=== PATIENT | male | born 1960 | race Two or more races ===

== ENCOUNTER → 2024-11-05 | Outpatient (CLI) | payer MEDICARE, MEDICAID, SELFPAY ==
[2024-11-05 10:43] LABS: Basophils % (Auto) 1 % (0-2.5); Eosinophils # (Auto) 0.2 Thou/mm3 (0.0-0.5); Eosinophils % (Auto) 2 % (0-10); Hematocrit 26.7 % (41.0-53.0); Immature Granulocytes % (Auto) 1 % (0-0); Immature Granulocytes Auto 0.04 Thou/mm3 (0.00-0.00); Immature Reticulocyte Fraction 27.2 % (2.3-13.4); Lymphocytes # (Auto) 0.7 Thou/mm3 (1.0-4.8); Lymphocytes % (Auto) 9 % (10-50); Mean Corpuscular HGB Conc 32.2 g/dl (31.0-37.0); Mean Corpuscular Hemoglobin 33.2 pg (25.0-35.0); Mean Corpuscular Volume 103 fL (80-100); Monocytes # (Auto) 0.7 Thou/mm3 (0.0-0.8); Monocytes % (Auto) 9 % (0-12); Neutrophils # (Auto) 5.9 Thou/mm3 (1.8-7.7); Neutrophils % (Auto) 78 % (37-80); Nucleated Red Blood Cell % 0 /100 WBC (0); Platelet Count 242 Thou/mm3 (140-440); RDW Standard Deviation 63.7 fL (35.1-43.9); Red Blood Count 2.59 Miln/mm3 (4.50-5.90); Reticulocyte % (Auto) 3.5 % (0.5-1.5); Reticulocyte Absolute Auto 91.7 Biln/L (25.0-75.0); Reticulocyte Hgb Content 30.9 pg (28.0-35.0); White Blood Count 7.5 Thou/mm3 (3.8-10.6)
[2024-11-05 10:49] LABS: Hemoglobin 8.6 g/dL (13.5-16.0)
[2024-11-05 11:03] LABS: Alanine Aminotransferase 14 U/L (10-49); Albumin, Serum 4.3 gm/dL (3.4-4.8); Albumin/Globulin Ratio 1.5 (1.2-2.2); Alkaline Phosphatase 91 U/L (46-116); Anion Gap 9 (7-16); Aspartate Amino Transferase 14 U/L (0-34); BUN/Creatinine Ratio 7 Ratio (12-20); Bilirubin,Total 0.4 mg/dL (0.3-1.2); Blood Urea Nitrogen 46 mg/dL (9-23); Calcium 9.2 mg/dL (8.3-10.6); Calcium (Corrected) 9.2 mg/dL (8.5-10.1); Carbon Dioxide 34.1 mMol/L (20.0-31.0); Chloride 92 mMol/L (98-107); Creatinine (Component) 6.5 mg/dL (0.6-1.3); Globulin 2.9 gm/dL (2.3-3.5); Glucose 137 mg/dL (74-106); Osmolality,Calculated 284 (275-295); Potassium 5.2 mMol/L (3.4-5.1); Sodium 135 mMol/L (136-145); Total Protein 7.2 gm/dL (5.7-8.2); eGFR 9 See Note
[2024-11-05 21:31] LABS: Folate 14.94 ng/mL (>5.38); Vitamin B12 634 pg/mL (211-911)
[2024-11-05 22:48] LABS: Ferritin 1584 ng/mL (10.5-307.3); Total Iron Binding Capacity 232 mcg/dL (250-425)
[2024-11-05 22:56] LABS: Iron 45 mcg/dL (65-175); Percent Iron Saturation 19 % (20-55); Unsaturated Iron Binding 187 (225-295)
[2024-11-13 15:36] LABS: Kappa Light Chain, Free 354.3 mg/L (3.3-19.4); Lambda Light Chain, Free 199.1 mg/L (5.7-26.3)
[2024-11-16 06:41] LABS: Erythropoietin (EPO)* 99.2 mIU/mL (2.6-18.5); Haptoglobin* 96 mg/dL (43-212); Kappa/Lambda, Free Ratio 1.78 (0.26-1.65); Testosterone,Total* 390 ng/dL (250-1100)
== END | disposition home or self-care (01) ==
PROVIDERS: PCP Internal Medicine; Referring Provider Internal Medicine Hematology & Oncology; Visit Provider Internal Medicine Hematology & Oncology
DX: D64.89 Other specified anemias (principal)
CPT/HCPCS: 36415; 80053; 82232; 82607; 82668; 82728; 82746; 83010; 83521; 83540; 83550; 83605; 84403; 85025; 85046; 86334; 86880

== ENCOUNTER 2024-11-19 08:16 | Outpatient (RCR) | payer MEDICARE, MEDICAID, SELFPAY ==
--- NOTE | 2024-11-03 13:57 | CTCCONSULT_ITS ---
Patient: LISA ESQUIVEL : 1960 MR#: [id number] Page 2 of 2 CONSULTATION NOTE DATE OF CONSULTATION: 11/03/2024 NAME: LISA ESQUIVEL ACCOUNT: [id number] : 1960 AGE: 63 REFERRING PHYSICIAN: Patria Belle MD PRIMARY PHYSICIAN: Patria Belle MD HISTORY OF PRESENT ILLNESS: 63-year-old male with end-stage renal disease on hemodialysis. Patient is referred by his nephrologi st for evaluation of anemia. Patient says he does not want to follow-up in hematology oncology. He says that he has been anemic for his whole life. He has been treated for it and does not want much w orkup done. He does not have any signs of symptoms from low blood count. He says he always felt the same and there is no change. OTHER MEDICAL HISTORY/CONDITIONS: ANEMIA EROSIVE ESOPHAGITIS, H.PYLORI POSITIVE 02/21/24 HYPERTENSION DIABETES MELLITUS DYSLIPIDEMIA END STAGE RENAL DISEASE ON DIALYSIS, ON TRANSPLANT LIST PERIPHERAL VASCULAR DISEASE SLEEP APNEA USING CPAP CHF LEFT EAR IMPLANTABLE DEVICE 8 YEARS AGO ARTERIOVENOUS FISTULA LEFT 12 YEARS AGO EGD/COLONOSCOPY 2023 FAMILY HISTORY: Father:?DENIES Mother:?DENIES Sibling:?DENIES Children:?DENIES Cancer?History:?DENIES?,?HX?ANEMIA Patient?denies?family?cancer?history. SOCIAL HISTORY: Occupational?History:?DISABLED Marital?Status:? Tobacco?Use:?QUIT?SMOKING?30?YEARS?AGO ETOH?Use:?DENIES Drug?Note:?DENIES Social?History?Note:?LIVES?WITH? MEDICATIONS: 1. calcium acetate - 667 mg 2 tab Daily 2. carvedilol - 25 mg 1 tab Daily 3. dilTIAZem HCL - 120 mg 1 tab Daily 4. Eliquis - 2.5 mg 1 tab Daily 5. Entresto - 24-26 mg 1 tab Daily 6. glipiZIDE - 5 mg 1 tab Daily 7. loratadine - 10 mg 1 Capsule Daily 8. Renavit Multivitamin - 0.8 mg 1 tab Daily 9. Sod Polysulthionate-Folic Acid - 400 mg- 500 mcg 1 Capsule Daily Medications Last Reconciled by Fide Acevedo MD on 11/03/2024 ALLERGIES: No Known Allergies REVIEW OF SYSTEMS: A complete 14-point review of systems was performed and is negative except as noted in interval histo ry. PHYSICAL EXAMINATION: VITAL SIGNS: Temperature?98.5, B/P?177/96, Height?66?inches, Oxygen?Saturation?98% Weight?182?lbs PAIN: 0 - No pain ECOG Performance Status: 0 - Asymptomatic and fully active GENERAL APPEARANCE: Appears well, in no apparent distress, appropriately interactive. HEENT: Normocephalic, no temporal wasting, normal conjunctiva, no scleral icterus, normal hearing, li ps without lesions, neck normal range of motion. CARDIOVASCULAR: Not assessed. PULMONARY: Normal respiratory effort, no respiratory distress or use of accessory muscles, speaking i n full sentences, no tachypnea. EXTREMITIES: No pedal edema or cyanosis. SKIN: Normal skin appearance. NEUROLOGIC: Alert and oriented x4. PSHYCHIATRIC: Appropriate affect, mood normal, behavior normal, intact thought and speech. LABORATORY DATA: I have personally reviewed and interpreted each of Mr. Esquivel?s relevant lab tests, abnormal findings are below: Date ASSESSMENT/PLAN: Anemia Primary care patient has been on Epogen as well as iron for his anemia Patient still anemic I will do workup for multiple myeloma as well as hemolysis to see if there are other causes for anemi a Will do iron studies and erythropoietin level I reviewed patient's EGD and colonoscopy which showed inflammation in the esophagus stomach No bleeding site was noted but patient may be oozing blood and becoming iron deficient Will follow-up on the labs May need bone marrow biopsy for confirmatory diagnosis if labs do not reveal any cause ORDERS: Ferritin iron studies B12 folic acid serum immune O pheresis SPEP free and light chain ratio beta-2 m icroglobulin ordered RETURN TO CLINIC: 2 weeks BILLING AND COMPLIANCE: I reviewed external records from providers outside my specialty as summarized above. I spent a total of 50 minutes on this patient?s care on the day of their visit excluding time spent related to any bi lled procedures. This time includes time spent with the patient as well as time spent documenting in the medical record, reviewing patients records and tests, obtaining history, placing orders, communi cating with other healthcare professionals, counseling the patient, family or caregiver, and/or care coordination for the diagnoses above. Electronically Signed by: Adebayo Lopez MD T: 1:55 PM CC: Patria?Yoshi,? PCP: Patria Belle Referring: Patria eBlle This document was completed utilizing speech recognition software. Grammatical errors, random word in sertions, pronoun errors, and incomplete sentences are an occasional consequence of this system due t o software limitations, ambient noise, and hardware issues. Any formal questions or concerns about th e content, text or information contained within the body of this dictation should be directly address ed to the provider for clarification.
== END 2024-11-20 23:59 | disposition home or self-care (01) ==
LOC: SCTC 08:16
PROVIDERS: PCP Internal Medicine; Referring Provider Specialist; Visit Provider Nurse Practitioner Family
DX: D64.9 Anemia, unspecified (principal)
CPT/HCPCS: 99212; 99213; G0463

== ENCOUNTER → 2024-11-30 | Outpatient (CLI) | payer MEDICARE, MEDICAID, SELFPAY ==
[2024-11-30 14:38] LABS: Basophils % (Auto) 0 % (0-2.5); Eosinophils # (Auto) 0.1 Thou/mm3 (0.0-0.5); Eosinophils % (Auto) 2 % (0-10); Hematocrit 30.6 % (41.0-53.0); Immature Granulocytes % (Auto) 0 % (0-0); Immature Granulocytes Auto 0.03 Thou/mm3 (0.00-0.00); Lymphocytes # (Auto) 0.7 Thou/mm3 (1.0-4.8); Lymphocytes % (Auto) 8 % (10-50); Mean Corpuscular HGB Conc 32.7 g/dl (31.0-37.0); Mean Corpuscular Hemoglobin 33.4 pg (25.0-35.0); Mean Corpuscular Volume 102 fL (80-100); Monocytes # (Auto) 0.8 Thou/mm3 (0.0-0.8); Monocytes % (Auto) 9 % (0-12); Neutrophils # (Auto) 7.3 Thou/mm3 (1.8-7.7); Neutrophils % (Auto) 81 % (37-80); Nucleated Red Blood Cell % 0 /100 WBC (0); Platelet Count 168 Thou/mm3 (140-440); RDW Standard Deviation 63.7 fL (35.1-43.9); Red Blood Count 2.99 Miln/mm3 (4.50-5.90); White Blood Count 9.1 Thou/mm3 (3.8-10.6)
[2024-11-30 14:56] LABS: Folate > 24.00 ng/mL (>5.38); Vitamin B12 666 pg/mL (211-911)
[2024-11-30 15:00] LABS: Alanine Aminotransferase 17 U/L (10-49); Albumin, Serum 4.3 gm/dL (3.4-4.8); Albumin/Globulin Ratio 1.3 (1.2-2.2); Alkaline Phosphatase 100 U/L (46-116); Anion Gap 9 (7-16); Aspartate Amino Transferase 21 U/L (0-34); BUN/Creatinine Ratio 5 Ratio (12-20); Bilirubin,Total 0.4 mg/dL (0.3-1.2); Blood Urea Nitrogen 29 mg/dL (9-23); Calcium 9.9 mg/dL (8.3-10.6); Calcium (Corrected) 9.9 mg/dL (8.5-10.1); Carbon Dioxide 33.8 mMol/L (20.0-31.0); Chloride 97 mMol/L (98-107); Creatinine (Component) 5.6 mg/dL (0.6-1.3); Globulin 3.2 gm/dL (2.3-3.5); Glucose 148 mg/dL (74-106); Osmolality,Calculated 288 (275-295); Potassium 4.8 mMol/L (3.4-5.1); Sodium 140 mMol/L (136-145); Total Protein 7.5 gm/dL (5.7-8.2); eGFR 11 See Note
[2024-11-30 15:14] LABS: Ferritin 1153 ng/mL (10.5-307.3); Iron 37 mcg/dL (65-175); Percent Iron Saturation 15 % (20-55); Total Iron Binding Capacity 234 mcg/dL (250-425); Unsaturated Iron Binding 197 (225-295)
== END | disposition home or self-care (01) ==
PROVIDERS: PCP Internal Medicine; Referring Provider Nurse Practitioner Family; Visit Provider Nurse Practitioner Family
DX: D64.9 Anemia, unspecified (principal)
CPT/HCPCS: 36415; 80053; 82607; 82728; 82746; 83540; 83550; 85025

== ENCOUNTER 2024-12-08 06:34 | Day surgery (SDC) | payer MEDICARE, MEDICAID, SELFPAY ==
[2024-12-08] VITALS (13 sets, daily range): BP systolic 133–148; BP diastolic 87–111; PULSE 76–117; RESP 15–20; TEMP 36.5–36.7; O2SAT 93–100; BMI 28.5
[2024-12-08] MEDS: SODIUM CHLORIDE 0.9% 1000 ML 500 ML 20 ML IV (07:45)
[2024-12-08] MEDS: fentaNYL CIT INJ 50 mCg/ML AMP 2ML 75 MCG IVP (08:21)
[2024-12-08] MEDS: MIDAZOLAM INJ 1 MG/ML VIAL 2 ML 2 MG IV (08:21)
--- NOTE | 2024-12-08 08:36 | EKG_ITS ---
[facility] Test Date: 2024-12-08 Pat Name: LISA ESQUIVELDepartment: Room: - Gender: Male Brick Tester: : 1960 Requested By: Ines Galvan Order Number: [id number] Reading MD: Ines Galvan Measurements Intervals [place] Rate: 77 P: 45 AK: 206 QRS: -1 QRSD: 108 T: 82 QT: 394 QTc: 446 Interpretive Statements SINUS RHYTHM NONSPECIFIC ST & T-WAVE ABNORMALITY Compared to ECG 11/30/2022 04:08:40 T-wave abnormality now present Intraventricular conduction delay no longer present /store/S0/[id number]/ecg/[id number].pdf
--- NOTE | 2024-12-08 09:55 | PC.NURSE ---
8184 patient is awake, alert, breathing unlabored, s/p cardioversion by Dr. Gustafson, report received from Yayo COY, patient to recover in cardiac cath lab manager until 1030. family at bedside, patient eating breakfast
--- NOTE | 2024-12-08 10:22 | ESOP_ITS ---
RE: LISA ESQUIVEL : 1960 DATE OF OPERATION: 12/08/2024 DATE OF PROCEDURE: 12/08/2024 PROCEDURES PERFORMED: 1. Synchronized cardioversion. 2. Conscious sedation 30 minutes duration. DIAGNOSIS: Atrial fibrillation, symptomatic. HISTORY AND INDICATIONS: The patient is a 63-year-old male with history of hypertension, CKD, and hemodialysis with symptomatic atrial fibrillation. He was given anticoagulation with Eliquis for more than 3 weeks. The patient recommended to have synchronized cardioversion. DESCRIPTION OF PROCEDURE: The patient was brought to cardiac catheterization laboratory. Informed consent was obtained. He was given conscious sedation with 2 mg of Versed and 50 mcg of fentanyl. Synchronized cardioversion successfully performed using 100 units of energy, converted to sinus rhythm. EKG showed 100% sinus rhythm within normal limits. SUMMARY OF FINDINGS: Successful synchronized cardioversion from atrial fibrillation to normal sinus rhythm. COMPLICATIONS: None. DT: 09:34:41 TT: 10:02:00 Ref: [id number] - TID: [id number]
--- NOTE | 2024-12-08 10:34 | PC.NURSE ---
patient is awake, alert, breathing unlabored, able to tolerate breakfast with no nausea or vomiting, meets discharge criteria, discharge instructions given to patient and family member via missile tracking technician, waiting for ride to get here to picker and sorter load and unload patient.ride coming from [place].
--- NOTE | 2024-12-08 15:04 | PC.NURSE ---
1042 patient awake alert, breathing unlabored, meets discharge criteria, patient discharged home in wheelchair with all belongings accompanied by family member
== END 2024-12-08 10:42 | disposition home or self-care (01) ==
LOC: SCCL 08:05 → S2EX 12-11 09:59 → SCCL 12-11 09:59
PROVIDERS: PCP Internal Medicine; Referring Provider Internal Medicine Cardiovascular Disease; Visit Provider Internal Medicine Cardiovascular Disease
PROC: 5A2204Z Restoration of Cardiac Rhythm, Single (ICD-10-PCS; CPT 92960; principal; 2024-12-08 07:30)
DX: I48.91 Unspecified atrial fibrillation (principal); I12.9 Hypertensive chronic kidney disease with stage 1 through stage 4 chronic kidney disease, or unspecified chronic kidney disease; N18.9 Chronic kidney disease, unspecified; Z01.810 Encounter for preprocedural cardiovascular examination
CPT/HCPCS: 92960; 93005; J2250; J3010; J7030

== ENCOUNTER 2024-12-15 07:27 | Outpatient (CLI) | payer MEDICARE, MEDICAID, SELFPAY ==
[2024-12-14 11:31] LABS: Basophils % (Auto) 1 % (0-2.5); Eosinophils # (Auto) 0.2 Thou/mm3 (0.0-0.5); Eosinophils % (Auto) 3 % (0-10); Hematocrit 30.6 % (41.0-53.0); Hemoglobin 10.3 g/dL (13.5-16.0); Immature Granulocytes % (Auto) 0 % (0-0); Immature Granulocytes Auto 0.02 Thou/mm3 (0.00-0.00); Lymphocytes # (Auto) 0.7 Thou/mm3 (1.0-4.8); Lymphocytes % (Auto) 11 % (10-50); Mean Corpuscular HGB Conc 33.7 g/dl (31.0-37.0); Mean Corpuscular Hemoglobin 33.6 pg (25.0-35.0); Mean Corpuscular Volume 100 fL (80-100); Monocytes # (Auto) 0.6 Thou/mm3 (0.0-0.8); Monocytes % (Auto) 10 % (0-12); Neutrophils # (Auto) 4.6 Thou/mm3 (1.8-7.7); Neutrophils % (Auto) 76 % (37-80); Nucleated Red Blood Cell % 0 /100 WBC (0); Platelet Count 168 Thou/mm3 (140-440); RDW Standard Deviation 59.3 fL (35.1-43.9); Red Blood Count 3.07 Miln/mm3 (4.50-5.90); White Blood Count 6.1 Thou/mm3 (3.8-10.6)
[2024-12-14 11:40] LABS: INR 1.1 (0.9-1.3); Partial Thromboplastin Time 36.1 Seconds (22.0-36.0); Prothrombin Time 11.9 Seconds (9.0-12.2)
[2024-12-14 11:42] LABS: Blood Urea Nitrogen 32 mg/dL (9-23); Creatinine (Component) 4.8 mg/dL (0.6-1.3); eGFR 13 See Note
[2024-12-15] VITALS (11 sets, daily range): BP systolic 144–174; BP diastolic 84–110; PULSE 68–80; RESP 10–17; TEMP 36.2–36.6; O2SAT 97–100
--- NOTE | 2024-12-15 07:42 | XR_ITS ---
Exam: CT-guided left iliac bone biopsy and bone marrow aspiration DATE 12/15/2024, 9:15 AM INDICATION: Hemopoietic abnormality CTDI: 30.2 DLP: 385 Procedure: After discussing the risk and benefits informed consent was obtained. The patient was brought to the CT scanner and placed in the prone decubitus position. Preliminary noncontrast enhanced CT demonstrated normal bony anatomy of the pelvis. The posterior left iliac bone was targeted for biopsy. . The overlying skin was cleaned and draped in normal sterile surgical fashion. 10 cc's of 1% lidocaine local anesthesia. Conscious sedation was begun with direct continuous nursing supervision. Using CT guidance a 10-gauge needle biopsy system was sequentially advanced into the targeted area. A single core bone biopsy sample was obtained followed by 10 cc's of bone marrow aspirate. Pathology deemed the samples adequate the time of the procedure. The needle was withdrawn. Hemostasis was achieved. The access site was covered with sterile dressing. Postbiopsy CT was performed which showed no evidence of bony injury or other complication. Patient tolerated procedure well and was transferred to the holding area for post procedural observation. Impression: Successful posterior left iliac bone biopsy and bone marrow aspiration as above.
[2024-12-15 09:04] LABS: Flow Cytometry* See Sep Rpt
[2024-12-15] MEDS: SODIUM CHLORIDE 0.9% 500 ML 500 ML 20 ML IV (09:05)
[2024-12-15] MEDS: fentaNYL CIT INJ 50 mCg/ML AMP 2ML 100 MCG IVP (09:32)
[2024-12-15] MEDS: MIDAZOLAM INJ 1 MG/ML VIAL 2 ML IV (09:32)
[2024-12-15] MEDS: LIDOCAINE INJ PF 1% 30 ML VIAL 15 ML INFL (09:39)
--- NOTE | 2024-12-15 09:58 | PC.NURSE ---
0958 patient is awake, alert, breathing unlabored, s/p bone marrow biopsy and aspiration, band aid and tegaderm to lower back, no active bleeding noted. Report given to Lydia COY, patient to recover for 1hr.
== END 2024-12-15 10:43 | disposition home or self-care (01) ==
PROVIDERS: Radiology Diagnostic Radiology; PCP Internal Medicine; Referring Provider Internal Medicine Hematology & Oncology; Visit Provider Internal Medicine Hematology & Oncology
DX: D64.9 Anemia, unspecified (principal); Z01.812 Encounter for preprocedural laboratory examination
CPT/HCPCS: 38221; 36415; 77012; 82565; 84520; 85025; 85610; 85730; 99152; J2250; J3010; J3490; J7040

== ENCOUNTER → 2024-12-31 | Outpatient (CLI) | payer MEDICARE, MEDICAID, SELFPAY ==
[2024-12-29 09:53] LABS: Basophils # (Auto) 0.1 Thou/mm3 (0.0-0.2); Basophils % (Auto) 1 % (0-2.5); Eosinophils # (Auto) 0.4 Thou/mm3 (0.0-0.5); Eosinophils % (Auto) 4 % (0-10); Hematocrit 32.7 % (41.0-53.0); Hemoglobin 10.4 g/dL (13.5-16.0); Immature Granulocytes % (Auto) 0 % (0-0); Immature Granulocytes Auto 0.03 Thou/mm3 (0.00-0.00); Lymphocytes # (Auto) 0.6 Thou/mm3 (1.0-4.8); Lymphocytes % (Auto) 7 % (10-50); Mean Corpuscular HGB Conc 31.8 g/dl (31.0-37.0); Mean Corpuscular Hemoglobin 32.4 pg (25.0-35.0); Mean Corpuscular Volume 102 fL (80-100); Monocytes # (Auto) 0.8 Thou/mm3 (0.0-0.8); Monocytes % (Auto) 10 % (0-12); Neutrophils # (Auto) 6.7 Thou/mm3 (1.8-7.7); Neutrophils % (Auto) 78 % (37-80); Nucleated Red Blood Cell % 0 /100 WBC (0); Platelet Count 138 Thou/mm3 (140-440); RDW Standard Deviation 58.6 fL (35.1-43.9); Red Blood Count 3.21 Miln/mm3 (4.50-5.90); White Blood Count 8.6 Thou/mm3 (3.8-10.6)
[2024-12-29 10:15] LABS: Alanine Aminotransferase 20 U/L (10-49); Albumin, Serum 4.3 gm/dL (3.4-4.8); Albumin/Globulin Ratio 1.5 (1.2-2.2); Alkaline Phosphatase 108 U/L (46-116); Anion Gap 9 (7-16); Aspartate Amino Transferase < 10 U/L (0-34); BUN/Creatinine Ratio 7 Ratio (12-20); Bilirubin,Total 0.4 mg/dL (0.3-1.2); Blood Urea Nitrogen 53 mg/dL (9-23); Calcium 9.4 mg/dL (8.3-10.6); Calcium (Corrected) 9.4 mg/dL (8.5-10.1); Carbon Dioxide 31.8 mMol/L (20.0-31.0); Chloride 94 mMol/L (98-107); Creatinine (Component) 7.8 mg/dL (0.6-1.3); Globulin 2.8 gm/dL (2.3-3.5); Glucose 166 mg/dL (74-106); Osmolality,Calculated 288 (275-295); Potassium 4.7 mMol/L (3.4-5.1); Sodium 135 mMol/L (136-145); Total Protein 7.1 gm/dL (5.7-8.2); eGFR 7 See Note
--- NOTE | 2024-12-31 15:30 | XR_ITS ---
Examination: CT chest with intravenous contrast CT abdomen with intravenous contrast CT pelvis with intravenous contrast 2-D coronal and sagittal reconstructions Time of exam: December 31, [address] abdomen pelvis February 04, 2020 Indications: Anemia unspecified diagnosis 2 months ago, renal failure CTDI: vol (mGy) : 7.09 DLP: (mGycm): 593 Technique: Multiple axial images of the chest, abdomen and pelvis with intravenous contrast, 3.0 mm slice thickness. Images obtained post intravenous injection Isovue 370 60 cc. 2-D sagittal and coronal reconstructions. Low dose protocols were performed. One or more of the following dose reduction techniques were used; automated exposure control, adjustment of the mA and/or KV according to patient size, use of iterative reconstruction technique. Findings: No thoracic aortic aneurysm dilatation Pulmonary artery segments are not enlarged No pulmonary artery filling defects 6 bilateral noncalcified pulmonary nodules, the largest in the right lower lobe 11 mm No paratracheal tracheobronchial or bronchopulmonary adenopathy. Small right minimal left pleural fluid No visualized liver or splenic lesion, liver 19 cm, spleen 13 cm Absent gallbladder No pancreatic or adrenal mass Moderate renal parenchymal scar formation Bilateral subcentimeter probable renal cysts However, more solid lesion 17 mm with mild enhancement lateral margin right kidney image 222, not seen on the prior study Aorta normal size Normal appendix No abdominal or pelvic lymphadenopathy The colon shows diffuse wall thickening and mild hyperemia especially sigmoid colon Urinary bladder is contracted with wall thickening poorly visualized Transverse prostate dimension 6 cm Severe osteopenia Impression: 6 bilateral noncalcified pulmonary nodules, the largest in the right lower lobe 11 mm, with this study as baseline recommend 6 month follow-up CT chest without contrast Hepatosplenomegaly Recommend MRI abdomen kidneys follow-up to exclude 17 mm solid lesion lateral margin right kidney
== END | disposition home or self-care (01) ==
PROVIDERS: Referring Provider Nurse Practitioner Family; Visit Provider Nurse Practitioner Family
DX: R91.8 Other nonspecific abnormal finding of lung field (principal); R16.2 Hepatomegaly with splenomegaly, not elsewhere classified; D64.9 Anemia, unspecified
CPT/HCPCS: 36415; 71260; 74177; 80053; 85025; A4649; Q9967

== ENCOUNTER 2025-01-03 18:54 | Inpatient (IN) | payer MEDICARE, MEDICAID, SELFPAY ==
[2025-01-03 19:11] VITALS: BP 156/84; PULSE 85; RESP 25; O2SAT 100
[2025-01-03 19:21] VITALS: BP 156/84; RESP 30; TEMP 38.7; O2SAT 100
--- NOTE | 2025-01-03 19:34 | EDNOTE_ITS ---
Upper Respiratory Inf. RME/HPI General Chief Complaint: Flu Like Symptoms Stated Complaint: SHORTNESS OF BREATH WITH COUGH AND BODY ACHES Time Seen by Provider: 01/03/25 19:14 Arrival date/time: 01/03/25 18:54 This is a 64-year-old male comes into the emergency room with complaints of cough, fever, and nausea that started yesterday. Patient is a chronic dialysis patient. Patient received dialysis Saturday and Saturday. Patient also has history of high blood pressure, atrial fibrillation patient has had a synchronized cardioversion in the past., and hyperlipidemia. Related Data Home Medications ?Medication ?Instructions ?Recorded ?Confirmed alprazolam 0.5 mg tablet 0.5 mg PO QDAY PRN anxiety 0 02/20/24 01/04/25 carvedilol 25 mg tablet 25 mg PO Q12H 02/20/2401/04 cyclobenzaprine 10 mg tablet 10 mg PO HS PRN muscle sp asm 02/20/24 01/04/25 diltiazem HCl 120 mg capsule,24 120 mg PO QDAY 4 01/04/25 hr,extended release glipizide 5 mg tablet 5 mg PO BID 02/20/24 5 loratadine 10 mg tablet 10 mg PO QDAY 02/20/2401/04 sacubitril 24 mg-valsartan 26 mg 1 tab PO BID 02/20/24 01/04/25 tablet (Entresto) sevelamer carbonate 2.4 gram oral 2.4 g PO TID 4 01/04/25 powder packet sodium polystyrene sulfonate 15 g PO QDAY 02/20/24 apixaban 2.5 mg tablet (Eliquis) 2.5 mg PO Q12H 01/04/25 calcium acetate(phosphat bind) 667 1,334 mg PO TIDWMEA L 12/08/24 01/04/25 mg capsule amiodarone 200 mg tablet 200 mg PO QDAY 12/14/2412/19 vitamin B complex-vitamin C-folic 1 tab PO QDAY 01/04/25 acid 0.8 mg tablet (Dialyvite 800) vitamin B complex-vitamin C-folic 1 tab PO QDAY 01/04/25 acid 0.8 mg tablet (Nephro-Jj) Previous Rx's ?Medication ?Instructions ?Recorded amoxicillin 500 mg-potassium 1 tab PO QDAY 7 days #7 t abs 01/07/25 clavulanate 125 mg tablet (Augmentin) Allergies Allergy/AdvReac Type Severity Reaction Status Date / Time No Known Allergies Allergy Verified 01/03/25 18:59 Review of Systems Review of Systems Systems Reviewed: All systems reviewed, normal except as documented Past Medical History Past Medical History CARDIAC: Positive Cardiac Disorders; Negative Congestive Heart Failure RESPIRATORY: Negative Chronic Obstructive Pulmonary Disease (COPD) GENITOURINARY: Positive Renal Disease ENDOCRINE: Positive Diabetes Mellitus Type 2; Negative Diabetes Mellitus Type 1 OTHER HISTORY: Positive Blood Transfusions Social History SMOKING STATUS: Never smoker ED Exam General General appearance: Present alert and other (MOPDERATE DISTRESS, TACHYPNEIC ON ARRIVAL ) Head Head exam: Present atraumatic Eye Eye exam: Present normal appearance, PERRL and EOMI ENT ENT exam: Present normal exam, normal oropharynx and mucous membranes moist Neck Neck exam: Present normal inspection, full ROM and trachea midline Chest Chest inspection: Present normal inspection and symmetric chest wall rise Respiratory Respiratory exam: Present normal lung sounds bilaterally Cardiovascular Cardiovascular exam: Present regular rate, normal rhythm and normal heart sounds Abdominal Exam Abdominal exam: Present soft Extremities Exam Extremities exam: Present normal inspection and full ROM Back Exam Back exam: Present normal inspection and full ROM Neurological Exam Neurological exam: Present alert, oriented X3 and CN II-XII intact Psychiatric Psychiatric exam: Present normal affect and normal mood Skin Skin exam: Present warm, dry, intact and normal color Course Quality Measures none Orders Category Date Time Status Bedside COVID-19 Antigen Test NOW Care 01/03/25 19:26 Completed Bedside Influenza A&B Antigen Test NOW Care 01/03/25 19:26 Completed COVID-19 Screening Questionnaire NOW Care 01/03/25 22:47 Completed Decision to Admit X1 Care 01/03/25 22:47 Completed EKG (ED ONLY) *Do not use* NOW Care 01/03/25 19:35 Completed EKG (ED Only) Stat Exams 01/03/25 19:35 Draft XR chest 1V Stat Exams 01/03/25 19:34 Completed BNP [B-Type Natriuretic Peptide] Stat Lab 01/03/25 19:38 Completed Blood Culture (Lab) Stat Lab 01/03/25 19:38 Completed CBC Stat Lab 01/03/25 19:38 Completed Comprehensive Metabolic Panel Stat Lab 01/03/25 19:38 Completed Lactate (Lactic Acid) Stat Lab 01/03/25 19:38 Completed Procalcitonin Stat Lab 01/03/25 19:38 Completed Troponin I Stat Lab 01/03/25 19:38 Completed Acetaminophen Tab [Tylenol ES Tab] Med 01/03/25 19:26 Discontinued 1,000 mg PO X1 ONE Azithromycin Po [Zithromax PO] Med 01/03/25 20:20 Discontinued 500 mg PO X1 ONE cefTRIAXone [Rocephin] 1,000 mg Med 01/03/25 19:48 Discontinued SODIUM CHLORIDE 0.9% (Popper) [Ns 0.9% (P)] 50 ml IV X1 Vital Signs Vital signs: Vital Signs Pulse Rate 85 01/03/25 19:11 Respiratory Rate 25 H 01/03/25 19:11 Blood Pressure 156/84 H 01/03/25 19:11 Pulse Oximetry (%) 100 01/03/25 19:11 Procedures -ED EKG Interpretation #1: Date of EK01/03/25 Time of EK:55 Rate: 91 Interpretation: Interpreted by me (Atrial fibrillation) EKG Impression: Atrial fibrillation Upper Respiratory Infection MDM Narrative MDM Narrative:: Labs reviewed white count is 15.6, hemoglobin and hematocrit show 10.2 and 30.. chest xray: Findings: Extensive bilateral pneumonia Associated moderate heart failure with cardiomegaly, vascular congestion including central vascular engorgement and bilateral perihilar edema Prominent osteopenia Impression: Extensive bilateral pneumonia Moderate associated heart failure Sepsis alert called. Patient treated with a dose of Rocephin 1 g IV and also given a dose of 500 mg of Zithromax. Patient's labs reviewed patient's white count is 15.6, hemoglobin and hematocrit is 10.2 and 30 platelet count is 134, sodium 128 potassium 5.8 chloride 89 bicarb 27.7 BUN is 54 creatinine is 8.8 glucose is 201 troponin is 0.052 BNP is 2628 procalcitonin 0.58 chest x-ray shows bilateral pneumonia. Patient given a dose of Rocephin and azithromycin Zithromax. I called and let her know about patient and will admit. Patient data External records reviewed:: [facility] previous records Clinical information provided by:: patient Social determinants that could affect healthcare access:: none Patient has the following chronic illnesses:: SEE HPI How is presenting disease/condition affected by chronic disease/condition?: exacerbated by Evaluation data The following diagnostics were reviewed and interpreted by me:: lab results, radiology exam(s) and EKG tracing(s) Lab and/or radiology exams considered but not ordered:: NONE Interpretation Summary: SEE NOTE Medications / Prescriptions Medications or Prescriptions considered but not ordered:: NONE Medication administrations:: Medication Administration History Discontinued Medications Acetaminophen (Acetaminophen 500 Mg Tablet) 1,000 mg PO X1 ONE Stop: 01/03/25 19:27 Last Admin: 01/03/25 20:05 Dose: 1,000 mg Documented By: YONG Albuterol/Ipratropium (Albuterol/Ipratropium (Duoneb) Rt Jackelin 3 Ml Nebu) 3 ml I NH Q8HRRT PRN PRN Reason: sob or wheeze Stop: 02/03/25 09:59 Amiodarone HCl (Amiodarone Hcl 200 Mg Tablet) 200 mg PO QDAY ADAM Stop: 02/03/25 09:59 Last Admin: 01/04/25 13:17 Dose: 200 mg Documented By: SANDY Amiodarone HCl (Amiodarone Hcl 200 Mg Tablet) 200 mg PO QDAY ADAM Stop: 02/04/25 08:59 Last Admin: 01/07/25 09:39 Dose: 200 mg Documented By: Admin: 01/06/25 14:41 Dose: Not Given Documented By: JRR Non-Admin Reason: at dialysis Admin: 01/05/25 10:31 Dose: Not Given Documented By: JRR Non-Admin Reason: at dialysis Azithromycin (Azithromycin 250 Mg Tablet) 500 mg PO X1 ONE Stop: 01/03/25 20:21 Last Admin: 01/03/25 20:41 Dose: 500 mg Documented By: LUIS ANGEL Calcitriol (Calcitriol 0.25 Mcg Capsule) 1 mcg PO QDAY ADAM Stop: 02/04/25 08:59 Last Admin: 01/07/25 09:39 Dose: 1 mcg Documented By: Admin: 01/06/25 14:41 Dose: Not Given Documented By: JRR Non-Admin Reason: at dialysis Admin: 01/05/25 12:07 Dose: 1 mcg Documented By: SOPHIE Comments: given late,was @ dialysis Calcium Acetate (Calcium Acetate 667 Mg Tablet) 1,334 mg PO TIDWMEAL [facility] Stop: 02/04/25 07:59 Last Admin: 01/07/25 12:24 Dose: 1,334 mg Documented By: Admin: 01/07/25 07:38 Dose: 1,334 mg Documented By: R Admin: 01/06/25 17:52 Dose: 1,334 mg Documented By: Admin: 01/06/25 12:35 Dose: 1,334 mg Documented By: Admin: 01/06/25 08:29 Dose: Not Given Documented By: JRR Non-Admin Reason: dialysis Admin: 01/05/25 17:22 Dose: 1,334 mg Documented By: R Admin: 01/05/25 12:08 Dose: 1,334 mg Documented By: Admin: 01/05/25 10:31 Dose: Not Given Documented By: JRR Non-Admin Reason: at dialysis Carvedilol (Carvedilol 12.5 Mg Tablet) 25 mg PO BIDWM [facility] Stop: 02/03/25 17:29 Last Admin: 01/04/25 18:03 Dose: 25 mg Documented By: SOPHIE Carvedilol (Carvedilol 12.5 Mg Tablet) 25 mg PO BID [facility] Stop: 02/04/25 08:59 Last Admin: 01/07/25 09:40 Dose: 25 mg Documented By: Admin: 01/06/25 21:04 Dose: 25 mg Documented By: Admin: 01/06/25 08:29 Dose: Not Given Documented By: JRR Non-Admin Reason: Held for Dialysis Admin: 01/05/25 20:19 Dose: 25 mg Documented By: [facility] [place] [facility] Admin: 01/05/25 10:32 Dose: Not Given Documented By: JRR Non-Admin Reason: at dialysis Cyclobenzaprine HCl (Cyclobenzaprine 5 Mg Tablet) 10 mg PO HS PRN PRN Reason: muscle spasm Stop: 02/05/25 07:44 Dextrose (Dextrose 50%-Water Inj 50 Ml Syringe) 25 ml IV Q15MIN PRN PRN Reason: BG 50-70 responsive npo pt Stop: 02/03/25 16:06 Dextrose (Dextrose 50%-Water Inj 50 Ml Syringe) 50 ml IV Q15MIN PRN PRN Reason: BG <50 OR BG <70 & pt unresponsive Stop: 02/03/25 16:06 Diltiazem HCl (Diltiazem Cd 120 Mg Capcr) 120 mg PO QDAY [facility] Stop: 02/04/25 08:59 Last Admin: 01/07/25 09:40 Dose: 120 mg Documented By: Admin: 01/06/25 14:41 Dose: Not Given Documented By: JRR Non-Admin Reason: Held for Dialysis Admin: 01/05/25 10:32 Dose: Not Given Documented By: JRR Non-Admin Reason: at dialysis Doxycycline Hyclate (Doxycycline 100 Mg Tablet) 100 mg PO BID [facility] Stop: 01/11/25 09:59 Last Admin: 01/07/25 09:39 Dose: 100 mg Documented By: Admin: 01/06/25 21:05 Dose: 100 mg Documented By: Admin: 01/06/25 14:41 Dose: Not Given Documented By: JRR Non-Admin Reason: at dialysis Admin: 01/05/25 20:19 Dose: 100 mg Documented By: Admin: 01/05/25 12:09 Dose: 100 mg Documented By: SOPHIE Comments: given late,was @ dialysis Admin: 01/04/25 21:42 Dose: 100 mg Documented By: Admin: 01/04/25 13:20 Dose: 100 mg Documented By: SANDY Epoetin Cuong (Epoetin Cuong-Epbx Inj 10,000 Unit/Ml Vial (Esrd)) 10,000 unit SC X1 ONE Stop: 01/04/25 11:01 Last Admin: 01/04/25 13:18 Dose: 10,000 unit Documented By: SANDY Epoetin Cuong (Epoetin Cuong-Epbx Inj 10,000 Unit/Ml Vial (Esrd)) 10,000 unit SC X1 ONE Stop: 01/06/25 10:01 Last Admin: 01/06/25 11:30 Dose: 10,000 unit Documented By: SANDY Glucagon (Glucagon Inj 1 Mg Vial) 1 mg IM Q15MIN PRN PRN Reason: BG <70, and no IV access Heparin Sodium (Porcine) (Heparin Sod Inj 5000 Unit/Ml Vial) 5,000 unit SC Q8HR [facility] Stop: 01/18/25 21:59 Ceftriaxone Sodium 1,000 mg/ (Sodium Chloride) 50 mls @ 100 mls/hr IV X1 ONE Stop: 01/03/25 20:17 Last Infusion: 01/03/25 20:36 Dose: Infused Documented By: Admin: 01/03/25 20:05 Dose: 100 mls/hr Documented By: YONG Piperacillin/Tazobactam/Dextrose (Zosyn) 3.375 gm in 50 mls @ 100 mls/hr IV X1 ONE Stop: 01/04/25 00:29 Last Infusion: 01/04/25 01:20 Dose: Infused Documented By: LUIS ANGEL Admin: 01/04/25 00:47 Dose: 100 mls/hr Documented By: LUIS ANGEL Albumin Human (Albuminar-25 Ivpb) 25 gm in 100 mls @ 100 mls/min IV PRN PRN PRN Reason: DIALYSIS Ceftriaxone Sodium 1,000 mg/ (Sodium Chloride) 50 mls @ 100 mls/hr IV [facility] Stop: 01/11/25 09:42 Last Infusion: 01/04/25 22:36 Dose: Infused Documented By: Admin: 01/04/25 21:42 Dose: 100 mls/hr Documented By: CRISSY Ceftriaxone Sodium/Dextrose (Rocephin/D5w 1gm Iv Premix) 50 mls @ 100 mls/hr IV [facility] Stop: 01/11/25 09:42 Last Admin: 01/06/25 21:04 Dose: 100 mls/hr Documented By: Infusion: 01/05/25 20:49 Dose: Infused Documented By: Admin: 01/05/25 20:19 Dose: 100 mls/hr Documented By: KJ Insulin Human Lispro (Insulin Lispro (Admelog) 1 Unit/0.01 Ml Unit) 0 unit SC [facility]; Protocol Stop: 02/03/25 16:59 Last Admin: 01/07/25 11:47 Dose: Not Given Documented By: SOPHIE Non-Admin Reason: Per Protocol Admin: 01/07/25 07:38 Dose: Not Given Documented By: SOPHIE Non-Admin Reason: Per Protocol Admin: 01/06/25 21:11 Dose: 1 unit Documented By: RIKY Co-signed By: ALEK Admin: 01/06/25 17:04 Dose: 1 unit Documented By: SOPHIE Co-signed By: FELY Admin: 01/06/25 14:42 Dose: Not Given Documented By: JRAnnmarie Non-Admin Reason: Per Protocol Admin: 01/06/25 08:28 Dose: Not Given Documented By: SOPHIE Non-Admin Reason: Per Protocol Admin: 01/05/25 20:19 Dose: 1 unit Documented By: KJ Co-signed By: DIONNA Admin: 01/05/25 17:23 Dose: Not Given Documented By: SOPHIE Non-Admin Reason: Per Protocol Admin: 01/05/25 12:10 Dose: Not Given Documented By: JRR Non-Admin Reason: Per Protocol Admin: 01/05/25 07:43 Dose: Not Given Documented By: SOPHIE Non-Admin Reason: Per Protocol Admin: 01/04/25 21:42 Dose: 2 unit Documented By: CRISSY Co-signed By: ALEX Admin: 01/04/25 18:05 Dose: Not Given Documented By: SOPHIE Non-Admin Reason: Per Protocol Promethazine HCl/Dextromethorphan (Promethazine/Dm Syrup 5 Ml Dose) 5 ml PO Q6HR PRN; Protocol PRN Reason: COUGH Stop: 02/03/25 09:46 Sacubitril/Valsartan (Sacubitril 24 Mg/Valsartan 26 Mg Tablet) 1 tab PO BID ADAM Stop: 02/04/25 08:59 Last Admin: 01/07/25 09:40 Dose: 1 tab Documented By: Admin: 01/06/25 21:04 Dose: 1 tab Documented By: Admin: 01/06/25 14:41 Dose: Not Given Documented By: SOPHIE Non-Admin Reason: at dialysis Admin: 01/05/25 20:19 Dose: 1 tab Documented By: Admin: 01/05/25 10:32 Dose: Not Given Documented By: JRAnnmarie Non-Admin Reason: at dialysis Sevelamer Carbonate (Sevelamer Carbonate 800 Mg Tablet) 2,400 mg PO TID ADAM Stop: 02/04/25 13:59 Last Admin: 01/07/25 13:47 Dose: 2,400 mg Documented By: Admin: 01/07/25 06:24 Dose: 2,400 mg Documented By: Admin: 01/06/25 21:08 Dose: 2,400 mg Documented By: Admin: 01/06/25 14:43 Dose: 2,400 mg Documented By: Admin: 01/06/25 05:09 Dose: 2,400 mg Documented By: Admin: 01/05/25 21:22 Dose: 2,400 mg Documented By: Admin: 01/05/25 13:23 Dose: 2,400 mg Documented By: SOPHIE Sodium Chloride (Sodium Chloride Rt 10% 15 Ml Nebu) 5 ml INH X1 ONE Stop: 01/04/25 16:04 Sodium Polystyrene Sulfonate (Sod Polystyrene Sulfon Susp 15 Gm/60 Ml Btl) 15 gm PO QDAY ADAM Stop: 02/04/25 08:59 Vitamin B Complex/Vit C/Folic Acid (Vit B12/Vit C/Fa (Nephrovite) Tablet) 1 tab PO QDAY ADAM Stop: 02/04/25 08:59 Last Admin: 01/07/25 09:39 Dose: 1 tab Documented By: Admin: 01/06/25 14:42 Dose: Not Given Documented By: SOPHIE Non-Admin Reason: at dialysis Admin: 01/05/25 12:08 Dose: 1 tab Documented By: SOPHIE Comments: given late,was @ dialysis Vitamin B Complex/Vit C/Folic Acid (Vit B12/Vit C/Fa (Nephrovite) Tablet) 1 tab PO QDAY ADAM Stop: 02/04/25 08:59 SEE [facility] Consultations Consultation(s) initiated? (list below): No Diagnosis Upper Respiratory Differential Diagnosis: upper respiratory infection, viral infection, bronchitis, influenza, pharyngitis and other (PNUEMONIA ) Most likely diagnosis given after review of the tests above:: PNEUMONIA Admission Indicated Admission indicated?: indicated Admission Request Was there a request for admission?: Yes Admission Attestation Admission request attestation: Discussed case with Hospitalist service regarding admission. Discussed patients ED course, exam findings, labs, and radiology results. The Hospitalist agrees to accept the patient for admission. Disposition Plan Disposition Plan: Admit Discharge Plan Plan Patient Disposition: Admit Acute Care w/in Hospital Patient condition on transfer: Stable Problem List Clinical Impression: Chronic a-fib, Pneumonia, Fever, ESRD on dialysis Patient/Caregiver Discharge Instructions Discharge Activity: activity as tolerated PA/FIELD SALES ASSOCIATE Supervising Physician PA/[employer] SALES ASSOCIATE Supervising Physician: julissa
--- NOTE | 2025-01-03 19:34 | XR_ITS ---
Examination: AP chest single view Technique one AP portable semiupright chest single view Exam date and time: 60 pound thousand 25, 1807 hours Comparison December 03, 2022 Indications: Sepsis protocol Findings: Extensive bilateral pneumonia Associated moderate heart failure with cardiomegaly, vascular congestion including central vascular engorgement and bilateral perihilar edema Prominent osteopenia Impression: Extensive bilateral pneumonia Moderate associated heart failure
--- NOTE | 2025-01-03 19:35 | EKG_ITS ---
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
[2025-01-03 19:54] LABS: Lactate (Lactic Acid) 1.3 mMol/L (0.4-2.0)
[2025-01-03 19:55] LABS: Basophils # (Auto) 0.1 Thou/mm3 (0.0-0.2); Basophils % (Auto) 1 % (0-2.5); Eosinophils # (Auto) 0.2 Thou/mm3 (0.0-0.5); Eosinophils % (Auto) 1 % (0-10); Hemoglobin 10.2 g/dL (13.5-16.0); Immature Granulocytes % (Auto) 0 % (0-0); Immature Granulocytes Auto 0.06 Thou/mm3 (0.00-0.00); Lymphocytes # (Auto) 0.4 Thou/mm3 (1.0-4.8); Lymphocytes % (Auto) 2 % (10-50); Mean Corpuscular Hemoglobin 33.6 pg (25.0-35.0); Mean Corpuscular Volume 99 fL (80-100); Monocytes # (Auto) 1.1 Thou/mm3 (0.0-0.8); Monocytes % (Auto) 7 % (0-12); Neutrophils # (Auto) 13.9 Thou/mm3 (1.8-7.7); Neutrophils % (Auto) 89 % (37-80); Nucleated Red Blood Cell % 0 /100 WBC (0); Platelet Count 134 Thou/mm3 (140-440); Red Blood Count 3.04 Miln/mm3 (4.50-5.90); White Blood Count 15.6 Thou/mm3 (3.8-10.6)
[2025-01-03 20:05] VITALS: TEMP 38.7
[2025-01-03] MEDS: ACETAMINOPHEN 500 MG TABLET 1000 MG PO (20:05)
[2025-01-03] MEDS: cefTRIAXone 1,000 MG in SODIUM CHLORIDE 0.9% (Popper) 50 ML 100 MG IV (20:05)
[2025-01-03 20:31] LABS: Alanine Aminotransferase 14 U/L (10-49); Albumin, Serum 4.3 gm/dL (3.4-4.8); Albumin/Globulin Ratio 1.4 (1.2-2.2); Alkaline Phosphatase 113 U/L (46-116); Anion Gap 11 (7-16); Aspartate Amino Transferase 11 U/L (0-34); B-Type Natriuretic Peptide 2628 pg/mL (0-100); BUN/Creatinine Ratio 6 Ratio (12-20); Bilirubin,Total 0.4 mg/dL (0.3-1.2); Blood Urea Nitrogen 54 mg/dL (9-23); Calcium 9.1 mg/dL (8.3-10.6); Calcium (Corrected) 9.1 mg/dL (8.5-10.1); Carbon Dioxide 27.7 mMol/L (20.0-31.0); Chloride 89 mMol/L (98-107); Creatinine (Component) 8.8 mg/dL (0.6-1.3); Globulin 3.1 gm/dL (2.3-3.5); Glucose 201 mg/dL (74-106); Osmolality,Calculated 277 (275-295); Potassium 5.8 mMol/L (3.4-5.1); Procalcitonin 0.58 ng/ml (0.0-0.49); Sodium 128 mMol/L (136-145); Total Protein 7.4 gm/dL (5.7-8.2); eGFR 6 See Note
[2025-01-03 20:38] LABS: Troponin I 0.052 ng/mL (0.0-0.045)
[2025-01-03] MEDS: AZITHROMYCIN 250 MG TABLET 500 MG PO (20:41)
[2025-01-03 21:10] VITALS: TEMP 37.6
[2025-01-03 22:12] VITALS: BP 139/86; PULSE 73; RESP 23; O2SAT 100
[2025-01-03 23:00] VITALS: BP 122/79; PULSE 79; RESP 31; O2SAT 75
[2025-01-04] VITALS (33 sets, daily range): BP systolic 118–169; BP diastolic 66–101; PULSE 57–88; RESP 0–31; TEMP 36.5–37.1; O2SAT 94–100
[2025-01-04 00:40] LABS: Basophils # (Auto) 0.1 Thou/mm3 (0.0-0.2); Basophils % (Auto) 0 % (0-2.5); Eosinophils # (Auto) 0.1 Thou/mm3 (0.0-0.5); Eosinophils % (Auto) 1 % (0-10); Hemoglobin 10.2 g/dL (13.5-16.0); Immature Granulocytes % (Auto) 1 % (0-0); Immature Granulocytes Auto 0.12 Thou/mm3 (0.00-0.00); Lymphocytes # (Auto) 0.5 Thou/mm3 (1.0-4.8); Lymphocytes % (Auto) 3 % (10-50); Mean Corpuscular Hemoglobin 33.3 pg (25.0-35.0); Mean Corpuscular Volume 98 fL (80-100); Monocytes # (Auto) 1.2 Thou/mm3 (0.0-0.8); Monocytes % (Auto) 8 % (0-12); Neutrophils # (Auto) 12.8 Thou/mm3 (1.8-7.7); Neutrophils % (Auto) 87 % (37-80); Nucleated Red Blood Cell % 0 /100 WBC (0); Platelet Count 116 Thou/mm3 (140-440); RDW Standard Deviation 57.8 fL (35.1-43.9); Red Blood Count 3.06 Miln/mm3 (4.50-5.90); White Blood Count 14.8 Thou/mm3 (3.8-10.6)
[2025-01-04] MEDS: PIPER/TAZO 3.375 GM PREMIX 3.375 GM/50 ML BAG IV (00:47)
--- NOTE | 2025-01-04 01:00 | PC.NURSE ---
PT sleeping off and on. is at bedside. comfort measures offered to pt and his .
[2025-01-04 04:15] LABS: Alanine Aminotransferase 13 U/L (10-49); Albumin, Serum 3.6 gm/dL (3.4-4.8); Alkaline Phosphatase 82 U/L (46-116); Anion Gap 13 (7-16); BUN/Creatinine Ratio 7 Ratio (12-20); Blood Urea Nitrogen 57 mg/dL (9-23); Carbon Dioxide 25.2 mMol/L (20.0-31.0); Chloride 94 mMol/L (98-107); Creatinine (Component) 8.6 mg/dL (0.6-1.3); Glucose 133 mg/dL (74-106); Osmolality,Calculated 282 (275-295); Potassium 5.3 mMol/L (3.4-5.1); Sodium 132 mMol/L (136-145); eGFR 6 See Note
[2025-01-04 04:16] LABS: Albumin/Globulin Ratio 1.3 (1.2-2.2); Aspartate Amino Transferase 19 U/L (0-34); Bilirubin,Total 0.3 mg/dL (0.3-1.2); Calcium (Corrected) 8.3 mg/dL (8.5-10.1); Globulin 2.7 gm/dL (2.3-3.5); Total Protein 6.3 gm/dL (5.7-8.2)
[2025-01-04 05:50] LABS: Basophils % (Auto) 0 % (0-2.5); Eosinophils % (Auto) 0 % (0-10); Hematocrit 29.3 % (41.0-53.0); Hemoglobin 9.6 g/dL (13.5-16.0); Immature Granulocytes % (Auto) 1 % (0-0); Lymphocytes # (Auto) 0.5 Thou/mm3 (1.0-4.8); Lymphocytes % (Auto) 4 % (10-50); Mean Corpuscular HGB Conc 32.8 g/dl (31.0-37.0); Mean Corpuscular Hemoglobin 33.2 pg (25.0-35.0); Mean Corpuscular Volume 101 fL (80-100); Monocytes # (Auto) 1.1 Thou/mm3 (0.0-0.8); Monocytes % (Auto) 8 % (0-12); Neutrophils # (Auto) 12.6 Thou/mm3 (1.8-7.7); Neutrophils % (Auto) 88 % (37-80); Nucleated Red Blood Cell % 0 /100 WBC (0); Platelet Count 94 Thou/mm3 (140-440); Red Blood Count 2.89 Miln/mm3 (4.50-5.90); White Blood Count 14.3 Thou/mm3 (3.8-10.6)
[2025-01-04 06:25] LABS: Alanine Aminotransferase 14 U/L (10-49); Albumin, Serum 3.9 gm/dL (3.4-4.8); Albumin/Globulin Ratio 1.3 (1.2-2.2); Alkaline Phosphatase 90 U/L (46-116); Anion Gap 13 (7-16); Aspartate Amino Transferase 15 U/L (0-34); BUN/Creatinine Ratio 7 Ratio (12-20); Bilirubin,Total 0.4 mg/dL (0.3-1.2); Blood Urea Nitrogen 66 mg/dL (9-23); Calcium 8.7 mg/dL (8.3-10.6); Calcium (Corrected) 8.8 mg/dL (8.5-10.1); Carbon Dioxide 28.7 mMol/L (20.0-31.0); Chloride 88 mMol/L (98-107); Creatinine (Component) 9.4 mg/dL (0.6-1.3); Glucose 143 mg/dL (74-106); Osmolality,Calculated 281 (275-295); Potassium 5.9 mMol/L (3.4-5.1); Sodium 130 mMol/L (136-145); Total Protein 6.9 gm/dL (5.7-8.2); eGFR 6 See Note
--- NOTE | 2025-01-04 07:03 | PC.NURSE ---
pt feeling better this morning. slept most of the night. Seems to be breathing easier.
--- NOTE | 2025-01-04 09:40 | PD.RESHP ---
Documentation for date of: 01/04/25 [facility] History of Present Illness Chief complaint: Cough and shortness of breath History of present illness: A 63-year-old male with significant past medical history of hypertension, diabetes mellitus, ESRD on dialysis [M/W/F] for 10 years, BPH, chronic A-fib, renal osteodystrophy, chronic anemia, reflux esophagitis presented to the hospital with chief complaints of shortness of breath and cough since 2 days. Patient was apparently normal till 2 days ago, then developed severe cough which is nonproductive and associated with sore throat. Patient also stated that he is having shortness of breath without any abdominal distention, worsening of preexistent pedal edema. Denies fever, burning micturition, nausea, vomitings, palpitations. Denies any other sick contacts in the family or recent travel history ED Course: -Initial vitals were blood pressure 156/84 mmHg, pulse rate 85 bpm, respiratory rate 25/min, temperature 101.6 ?F, SpO2 100% with 2 L oxygen -Labs significant for WBC 14.3, Hb 9.6, MCV 101, sodium 130, potassium 5.9, chloride 88, BUN 66, creatinine 9.4, glucose 143, BNP 3628, procalcitonin 0.58 -EKG showed atrial fibrillation with QTc 455. Chest x-ray showed bilateral patchy infiltrates -In the ED, patient was given ceftriaxone and azithromycin -Patient was admitted for acute hypoxic respiratory failure secondary to bilateral pneumonia Past medical history: Hypertension, diabetes mellitus, ESRD on dialysis, BPH, chronic A-fib, renal osteodystrophy, chronic anemia, reflux esophagitis Past surgical history: Cholecystectomy, AV fistula Social history: Lives with at home, able to do his routine daily activities, retired, used to work in the farms, stopped smoking 40 years ago, denies alcohol or other illicit drug abuse Review of Systems Review of Systems Narrative Review of Systems: Constitutional: No Weight Change, No Fever, No Chills, No Night Sweats, Fatigue, Malaise ENT/Mouth: No Hearing Changes, No Ear Pain, No Nasal Congestion, No Sinus Pain, No Hoarseness, No sore throat, No Rhinorrhea, No Swallowing Difficulty Eyes: No Eye Pain, No Swelling, No Redness, No Foreign Body, No Discharge, No Vision Changes Cardiovascular: No Chest Pain, No SOB, No PND, No Dyspnea on Exertion, No Orthopnea, No Edema, No Palpitations Respiratory: Cough, No Sputum, No Wheezing, Dyspnea Gastrointestinal: No Nausea, No Vomiting, No Diarrhea, No Constipation, No Pain, No Heartburn, No Anorexia, No Dysphagia, No Hematochezia, No Melena, No Flatulence, No Jaundice Genitourinary: No Dysuria, No Urinary Frequency, No Hematuria, No Urinary Incontinence, No Urgency, No Flank Pain, No Urinary Flow Changes, No Hesitancy Musculoskeletal: No Arthralgias, No Myalgias, No Joint Swelling, No Joint Stiffness, No Back Pain, No Neck Pain, No Injury History Skin: No Skin Lesions, No Pruritis Neuro: No Weakness, No Numbness, No Paresthesias, No Loss of Consciousness, No Syncope, No Dizziness, No Headache, No Coordination Changes, No Recent Falls Past Medical History Past Medical History CARDIAC: Positive Cardiac Disorders; Negative Congestive Heart Failure RESPIRATORY: Negative Chronic Obstructive Pulmonary Disease (COPD) GENITOURINARY: Positive Renal Disease ENDOCRINE: Positive Diabetes Mellitus Type 2; Negative Diabetes Mellitus Type 1 OTHER HISTORY: Positive Blood Transfusions Social History SMOKING STATUS: Never smoker Exam Vital Signs Temp Pulse Resp BP Pulse Ox O2 Del Method 98.7 F 68 19 151/99 H 100 Nasal Cannula 01/04/25 08:03 01/04/25 08:03 01/04/25 08:03 01/04/25 08:03 01/04/25 08:03 01/04/25 08:03 Narrative Exam General: Awake. On dialysis HEENT: Normocephalic, atraumatic, mucous membranes moist. Heart: Irregular rate and rhythm, systolic murmur heard in all 4 areas, best heard at pulmonary Lungs: Clear to auscultation with no wheezing or crackles. Abdomen: Soft, nondistended, nontender, positive bowel sounds. ?No guarding or rebound tenderness. Neurologic: Alert and oriented x3, no gross neurological deficit, and patient able to move all 4 extremities. Fistula on left arm-cannulated Extremities: Bilateral 3+ pitting pedal edema extending up to ankles Skin: No rash or ecchymoses. Results: Labs 01/05/25 04:50 01/05/25 04:50 Labs: Short CBC 01/03/25 01/04/25 01/04/25 Range/Units 19:38 00:20 04:44 WBC 15.6 H D 14.8 H 14.3 H (3.8-10.6) Thou/mm3 Hgb 10.2 L 10.2 L 9.6 L (13.5-16.0) g/dL Hct 30.0 L 30.0 L 29.3 L (41.0-53.0) % Plt Count 134 L 116 L 94 L (140-440) Thou/mm3 BMP 01/03/25 01/04/25 01/04/25 19:38 00:20 04:44 Sodium 128 L 132 L 130 L Potassium 5.8 H 5.3 H D 5.9 H D Chloride 89 L 94 L 88 L Carbon Dioxide 27.7 25.2 28.7 BUN 54 H 57 H 66 H Creatinine 8.8 H* D 8.6 H* 9.4 H* D Glucose 201 H 133 H D 143 H Calcium 9.1 8.0 L 8.7 Cardiac Enzymes 01/03/25 Range/Units 19:38 Troponin I 0.052 H* (0.0-0.045) ng/mL Liver Function 01/03/25 01/04/25 01/04/25 Range/Units 19:38 00:20 04:44 Total Bilirubin 0.4 0.3 0.4 (0.3-1.2) mg/dL AST 11 19 15 (0-34) U/L ALT 14 13 14 (10-49) U/L Alkaline Phosphatase 113 82 D 90 (46-116) U/L Albumin 4.3 3.6 D 3.9 (3.4-4.8) gm/dL Quality Measures Quality Measures VTE prophylaxis Advance care planning discussed with:: patient and spouse Medications Home Medications and Allergies Home Medications ?Medication ?Instructions ?Recorded ?Confirmed ?Type alprazolam 0.5 mg tablet 0.5 mg PO QDAY PRN anxiety 02/20/24 01/04/25 History carvedilol 25 mg tablet 25 mg PO Q12H 02/20/24 01/04/25 History cyclobenzaprine 10 mg tablet 10 mg PO HS PRN muscle spasm 02/20/24 01/04/25 History diltiazem HCl 120 mg capsule,24 120 mg PO QDAY 02/20/24 01/04/25 History hr,extended release glipizide 5 mg tablet 5 mg PO BID 02/20/24 01/04/25 History loratadine 10 mg tablet 10 mg PO QDAY 02/20/24 01/04/25 History sacubitril 24 mg-valsartan 26 mg 1 tab PO BID 02/20/24 01/04/25 History tablet (Entresto) sevelamer carbonate 2.4 gram oral 2.4 g PO TID 02/20/24 01/04/25 History powder packet sodium polystyrene sulfonate 15 g PO QDAY 02/20/24 01/04/25 History apixaban 2.5 mg tablet (Eliquis) 2.5 mg PO Q12H 12/08/24 01/04/25 History calcium acetate(phosphat bind) 667 1,334 mg PO TIDWMEAL 12/08/24 01/04/25 History mg capsule amiodarone 200 mg tablet 200 mg PO QDAY 12/14/24 01/04/25 History vitamin B complex-vitamin C-folic 1 tab PO QDAY 12/14/24 01/04/25 History acid 0.8 mg tablet (Dialyvite 800) vitamin B complex-vitamin C-folic 1 tab PO QDAY 12/14/24 01/04/25 History acid 0.8 mg tablet (Nephro-Jj) Allergies Allergy/AdvReac Type Severity Reaction Status Date / Time No Known Allergies Allergy Verified 01/03/25 18:59 Visit Medications Epoetin Cuong (Epoetin Cuong-Epbx Inj 10,000 Unit/Ml Vial (Esrd)) 10,000 unit SC X1 ONE Stop: 01/04/25 11:01 Albumin Human (Albuminar-25 Ivpb) 25 gm in 100 mls @ 100 mls/min IV PRN PRN PRN Reason: DIALYSIS Discontinued Medications Acetaminophen (Acetaminophen 500 Mg Tablet) 1,000 mg PO X1 ONE Stop: 01/03/25 19:27 Last Admin: 01/03/25 20:05 Dose: 1,000 mg Azithromycin (Azithromycin 250 Mg Tablet) 500 mg PO X1 ONE Stop: 01/03/25 20:21 Last Admin: 01/03/25 20:41 Dose: 500 mg Ceftriaxone Sodium 1,000 mg/ (Sodium Chloride) 50 mls @ 100 mls/hr IV X1 ONE Stop: 01/03/25 20:17 Last Infusion: 01/03/25 20:36 Dose: Infused Piperacillin/Tazobactam/Dextrose (Zosyn) 3.375 gm in 50 mls @ 100 mls/hr IV X1 ONE Stop: 01/04/25 00:29 Last Infusion: 01/04/25 01:20 Dose: Infused Assessment & Plan Plan A 63-year-old male with significant past medical history of hypertension, diabetes mellitus, ESRD on dialysis [M/W/F] for 10 years, BPH, chronic A-fib, renal osteodystrophy, chronic anemia, reflux esophagitis presented to the hospital with chief complaints of shortness of breath and cough since 2 days. # Sepsis # Acute hypoxic respiratory failure # Secondary to bilateral pneumonia # Leukocytosis Viral versus atypical bacterial pneumonia -Patient was brought to the hospital with the complaints of shortness of breath and cough since 2 days -In the ED, patient also noted to have temperature of 101.6 ?F, respiratory rate 25/min, SpO2 100% with 2 L oxygen -SIRS criteria-respiratory rate 25/min, temperature 101.6 degree found heat, WBC 14.3+ bilateral pneumonia = fits into sepsis -Labs showed WBC 14.3, Hb 9.6, platelets 94, procalcitonin 0.58 -Chest x-ray showed bilateral patchy infiltrates -COVID-19 testing negative, influenza A and B are ordered Plan -Blood culture, MRSA nasal screen, sputum culture and sensitivity were ordered -Started on ceftriaxone and doxycycline [01/04- -started on promethazine and dextromethorphan as needed -Nebulizations as needed -Oxygen as needed # ESRD on HD [M/W/F] # Hyponatremia # Hyperkalemia Secondary to hypertensive nephrosclerosis -Patient is getting hemodialysis through the AV fistula -No dialysis catheter is noted Plan -Scheduled dialysis as per his routine schedule -Parathormone is ordered # Chronic anemia -Hemoglobin at the time of admission is 9.6 -Patient's hemoglobin is ranging from 9-11 since 2018 -Patient was found to have iron deficiency anemia in 11/2024 -Patient is receiving erythropoietin injections during hemodialysis -Referred to be in the by his PCP for chronic anemia, but patient deferred further care from hide sorter -will monitor CBC # Thrombocytopenia -Likely due to acute illness -Will monitor CBC # Hypertension -Blood pressure at the time of admission is 156/84 mmHg Plan -Medication reconciliation is ordered, pending rec -Will continue his home medication and titrate medications as needed based on blood pressures # Diabetes mellitus, type II -HbA1c is ordered -Patient is using glipizide 5 Mg p.o. twice daily at home -Insulin sliding scale is ordered # Chronic atrial fibrillation -[id number] score is 3 -Resumed his carvedilol, amiodarone and will resume diltiazem once med rec is done -Eliquis is held in view of anticipated dental procedure -Will hold it for now #? Congestive heart failure #? Mitral regurgitation -Patient is using Entresto, but denies cardiac history -On physical examination, systolic murmur heard in all areas -Ordered echocardiogram -Will resume Entresto once the med rec is done Hospital Maintenance: Dispo: Telemetry bed DVT ppx: Heparin GI ppx: Not needed Diet: Renal IV lines: Peripheral Code status: Full code Patient plan of care was discussed with the attending physician, Dr. Deondre Carrillo, PGY1 Attending Provider Attestation/Addendum Patient seen and examined with resident physician Dr. Davis. Note reviewed, agree with findings and recommendations. Admitted for pneumonia and hypoxic respiratory failure. Noted to have edema. Patient currently seen on dialysis. Tolerating dialysis without any problems. Hemodialysis for 3 hours, 2K, ultrafiltration 2-3 L, Epogen 6000, no heparin ordered. Plan of care discussed with the dialysis nurse. Please see dialysis flowsheet for further details. Continue with antibiotics, oxygen. Platelet count seems to be low. Hold heparin.
--- NOTE | 2025-01-04 10:15 | PC.NURSE ---
unable to give Pt med, due to him being at dialysis
--- NOTE | 2025-01-04 12:51 | PC.NURSE ---
MD CAMARA AT BEDSIDE WITH ORDER TO INCREASE TX TIME BY 30MIN AND INCREASE UF GOAL TO 3.3L TOLERATED, ORDERS CARRIED OUT WILL CONT. TO MONITOR
[2025-01-04] MEDS: AMIODARONE HCL 200 MG TABLET PO (13:17)
[2025-01-04] MEDS: EPOETIN ALFA-EPBX INJ 10,000 UNIT/ML VIAL (ESRD) 10000 UNIT SC (13:18)
[2025-01-04] MEDS: DOXYCYCLINE 100 MG TABLET PO ×2 (13:20→21:42)
[2025-01-04 15:03] LABS: Hepatitis A Antibody IgM Non Reactive (Non React); Hepatitis B Core Antibody IgM Non Reactive (Non React); Hepatitis B Surface Ab NonReact(Not Immune) (Immune); Hepatitis B Surface Antigen Non Reactive (Non React); Hepatitis C Antibody Non Reactive (Non React)
[2025-01-04 17:42] LABS: Respiratory Syncytial Virus Ag Negative (Negative)
[2025-01-04] MEDS: carVEDILOL 12.5 MG TABLET 25 MG PO (18:03)
[2025-01-04] MEDS: INSULIN LISPRO (AdmeLOG) 1 UNIT/0.01 ML UNIT SC (21:42)
[2025-01-04] MEDS: cefTRIAXone 1,000 MG in SODIUM CHLORIDE 0.9% (Popper) 50 ML 100 MG IV (21:42)
[2025-01-05] VITALS (25 sets, daily range): BP systolic 100–189; BP diastolic 58–91; PULSE 58–88; RESP 14–97; TEMP 36.1–37.2; O2SAT 92–99
[2025-01-05 06:05] LABS: Basophils % (Auto) 1 % (0-2.5); Eosinophils # (Auto) 0.2 Thou/mm3 (0.0-0.5); Eosinophils % (Auto) 3 % (0-10); Hematocrit 27.6 % (41.0-53.0); Hemoglobin 9.1 g/dL (13.5-16.0); Immature Granulocytes % (Auto) 0 % (0-0); Immature Granulocytes Auto 0.03 Thou/mm3 (0.00-0.00); Lymphocytes # (Auto) 0.5 Thou/mm3 (1.0-4.8); Lymphocytes % (Auto) 6 % (10-50); Mean Corpuscular Volume 100 fL (80-100); Monocytes % (Auto) 12 % (0-12); Neutrophils % (Auto) 80 % (37-80); Nucleated Red Blood Cell % 0 /100 WBC (0); Platelet Count 99 Thou/mm3 (140-440); RDW Standard Deviation 58.8 fL (35.1-43.9); Red Blood Count 2.76 Miln/mm3 (4.50-5.90); White Blood Count 8.8 Thou/mm3 (3.8-10.6)
[2025-01-05 06:10] LABS: Glucose Estimated Average 123 mg/dL (80-131); Hemoglobin A1C 5.9 % Hgb (4.8-6.0)
[2025-01-05 06:33] LABS: Parathyroid Hormone Intact 517.5 pg/ml (18.5-88.0)
[2025-01-05 06:46] LABS: Alanine Aminotransferase 17 U/L (10-49); Albumin, Serum 3.9 gm/dL (3.4-4.8); Albumin/Globulin Ratio 1.4 (1.2-2.2); Alkaline Phosphatase 107 U/L (46-116); Anion Gap 11 (7-16); Aspartate Amino Transferase 22 U/L (0-34); BUN/Creatinine Ratio 7 Ratio (12-20); Bilirubin,Total 0.4 mg/dL (0.3-1.2); Blood Urea Nitrogen 47 mg/dL (9-23); Calcium (Corrected) 9.1 mg/dL (8.5-10.1); Carbon Dioxide 30.8 mMol/L (20.0-31.0); Cardiac Risk Estimate 2.1 RATIO (4.0-6.7); Chloride 93 mMol/L (98-107); Cholesterol 76 mg/dL (132-200); Estimated Creatinine Clearance 12.2 mL/min (>60); Globulin 2.8 gm/dL (2.3-3.5); Glucose 130 mg/dL (74-106); HDL Cholesterol 37 mg/dL (40-60); LDL Cholesterol,Calculated 30 mg/dL (0-130); Osmolality,Calculated 284 (275-295); Phosphorous 4.1 mg/dL (2.4-5.1); Potassium 5.3 mMol/L (3.4-5.1); Sodium 135 mMol/L (136-145); Total Protein 6.7 gm/dL (5.7-8.2); Triglycerides 47 mg/dL (30-150); eGFR 8 See Note
--- NOTE | 2025-01-05 09:31 | PD.RESPRO ---
Documentation for date of: 01/05/25 Subjective Subjective Interval history: Mr. De Oliveira is a 63-year-old male with significant past medical history of hypertension, diabetes mellitus, ESRD on dialysis [M/W/F] for 10 years, BPH, chronic A-fib, renal osteodystrophy, chronic anemia, reflux esophagitis presented to the hospital with chief complaints of shortness of breath and cough since 2 days. Patient was apparently normal till 2 days ago, then developed severe cough which is nonproductive and associated with sore throat. Patient also stated that he is having shortness of breath without any abdominal distention, worsening of preexistent pedal edema. Denies fever, burning micturition, nausea, vomitings, palpitations. Denies any other sick contacts in the family or recent travel history ED Course: -Initial vitals were blood pressure 156/84 mmHg, pulse rate 85 bpm, respiratory rate 25/min, temperature 101.6 ?F, SpO2 100% with 2 L oxygen -Labs significant for WBC 14.3, Hb 9.6, MCV 101, sodium 130, potassium 5.9, chloride 88, BUN 66, creatinine 9.4, glucose 143, BNP 3628, procalcitonin 0.58 -EKG showed atrial fibrillation with QTc 455. Chest x-ray showed bilateral patchy infiltrates -In the ED, patient was given ceftriaxone and azithromycin -Patient was admitted for acute hypoxic respiratory failure secondary to bilateral pneumonia 01/05/2025 Patient was seen and examined bedside. Stated that his overall clinical condition improved. No acute overnight events Labs done showed sodium 133, potassium 5.3, BUN 47, creatinine 7 Patient will be scheduled dialysis today and rest of the dialysis sessions will be continued as per his routine schedule. Exam Vital Signs Temp Pulse Resp BP Pulse Ox O2 Del Method O2 Flow Rate 97.6 F 81 31 H 189/89 H 96 Room Air 0 01/05/25 04:00 01/05/25 09:17 01/05/25 07:58 01/05/25 09:17 01/05/25 07:58 01/05/25 04:00 01/05/25 04:00 Narrative Exam General: Awake. HEENT: Normocephalic, atraumatic, mucous membranes moist. Heart: Irregular rate and rhythm, systolic murmur heard in all areas Lungs: Clear to auscultation with no wheezing or crackles. Abdomen: Soft, nondistended, nontender, positive bowel sounds. ?No guarding or rebound tenderness. Neurologic: Alert and oriented x3, no gross neurological deficit, and patient able to move all 4 extremities. Extremities: Edema improved in both lower extremities Skin: No rash or ecchymoses. Objective Labs 01/06/25 05:09 01/06/25 05:09 Labs: Laboratory Results - last 24 hr 01/04/25 01/04/25 01/05/25 04:44 16:24 04:50 WBC 8.8 D RBC 2.76 L Hgb 9.1 L Hct 27.6 L MCV 100 MCH 33.0 MCHC 33.0 RDW Std Deviation 58.8 H Plt Count 99 L Neut % (Auto) 80 Lymph % (Auto) 6 L [place] % (Auto) 12 Eos % (Auto) 3 Baso % (Auto) 1 Neut # (Auto) 7.0 Lymph # (Auto) 0.5 L [place] # (Auto) 1.0 H Eos # (Auto) 0.2 Baso # (Auto) 0.0 Immature Gran # (Auto) 0.03 H Absolute Nucleated RBC 0.00 Immature Gran % 0 Nucleated RBC % 0 Sodium 135 L Potassium 5.3 H D Chloride 93 L Carbon Dioxide 30.8 Anion Gap 11 BUN 47 H Creatinine 7.0 H* D Estim Creat Clear Calc 12.2 L eGFR 8 L* BUN/Creatinine Ratio 7 L Glucose [address] Glu mg/dL 123 Hemoglobin A1c 5.9 Calculated Osmolality 284 Calcium 9.0 Corrected Calcium 9.1 Phosphorus 4.1 Total Bilirubin 0.4 AST 22 ALT 17 Alkaline Phosphatase 107 Total Protein 6.7 Albumin 3.9 Globulin 2.8 Albumin/Globulin Ratio 1.4 Triglycerides 47 Cholesterol 76 L LDL Cholesterol, Calc 30 HDL Cholesterol 37 L Cholesterol/HDL Ratio 2.1 L PTH Intact 517.5 H Hepatitis A IgM Ab Non Reactive Hep Bs Antigen Non Reactive Hep Bs Antibody NonReact(Not Immune) L Hep B Core IgM Ab Non Reactive Hepatitis C Antibody Non Reactive RSV Rapid Negative Quality Measures Quality Measures VTE prophylaxis Advance care planning discussed with:: patient Assessment & Plan Assessment Current Active Medications: Generic Name Dose Route Start Last Admin Trade Name Freq PRN Reason Stop Dose Admin Albuterol/Ipratropium 3 ml 01/04/25 09:46 Albuterol/Ipratropium (Duoneb) Rt Jackelin 3 Ml Nebu INH 02/03/25 09:59 Q8HRRT PRN sob or wheeze Amiodarone HCl 200 mg 01/05/25 09:00 Amiodarone Hcl 200 Mg Tablet PO 02/04/25 08:59 QDAY COUNT INCLUDES THE [facility] Calcitriol 1 mcg 01/05/25 09:00 Calcitriol 0.25 Mcg Capsule PO 02/04/25 08:59 QDAY COUNT INCLUDES THE [facility] Calcium Acetate 1,334 mg 01/05/25 08:00 Calcium Acetate 667 Mg Tablet PO 02/04/25 07:59 TIDWMEAL COUNT INCLUDES THE [facility] Carvedilol 25 mg 01/05/25 09:00 Carvedilol 12.5 Mg Tablet PO 02/04/25 08:59 BID COUNT INCLUDES THE [facility] Cyclobenzaprine HCl 10 mg 01/05/25 07:45 Cyclobenzaprine 5 Mg Tablet PO 02/05/25 07:44 HS PRN muscle spasm Dextrose 25 ml 01/04/25 16:07 Dextrose 50%-Water Inj 50 Ml Syringe IV 02/03/25 16:06 Q15MIN PRN BG 50-70 responsive npo pt Dextrose 50 ml 01/04/25 16:07 Dextrose 50%-Water Inj 50 Ml Syringe IV 02/03/25 16:06 Q15MIN PRN BG <50 OR BG <70 & pt unresponsive Diltiazem HCl 120 mg 01/05/25 09:00 Diltiazem Cd 120 Mg Capcr PO 02/04/25 08:59 QDAY COUNT INCLUDES THE [facility] Doxycycline Hyclate 100 mg 01/04/25 10:00 01/04/25 21:42 Doxycycline 100 Mg Tablet PO 01/11/25 09:59 100 mg BID COUNT INCLUDES THE [facility] Administration Glucagon 1 mg 01/04/25 16:07 Glucagon Inj 1 Mg Vial IM Q15MIN PRN BG <70, and no IV access Heparin Sodium (Porcine) 5,000 unit 01/04/25 22:00 Heparin Sod Inj 5000 Unit/Ml Vial SC 01/18/25 21:59 Q8HR COUNT INCLUDES THE [facility] Albumin Human 25 gm in 100 mls @ 100 mls/min 01/04/25 09:18 Albuminar-25 Ivpb IV PRN PRN DIALYSIS Ceftriaxone Sodium 1,000 mg/ 50 mls @ 100 mls/hr 01/04/25 21:00 01/04/25 22:36 Sodium Chloride IV 01/11/25 09:42 Infused HS ADAM Infusion Insulin Human Lispro 0 unit 01/04/25 17:00 01/05/25 07:43 Insulin Lispro (Admelog) 1 Unit/0.01 Ml Unit SC 02/03/25 16:59 Not Given ACHS ADAM Protocol Promethazine HCl/Dextromethorphan 5 ml 01/04/25 09:47 Promethazine/Dm Syrup 5 Ml Dose PO 02/03/25 09:46 Q6HR PRN COUGH Protocol Sacubitril/Valsartan 1 tab 01/05/25 09:00 Sacubitril 24 Mg/Valsartan 26 Mg Tablet PO 02/04/25 08:59 BID ADAM Sevelamer Carbonate 2,400 mg 01/05/25 14:00 Sevelamer Carbonate 800 Mg Tablet PO 02/04/25 13:59 TID ADAM Vitamin B Complex/Vit C/Folic Acid 1 tab 01/05/25 09:00 Vit B12/Vit C/Fa (Nephrovite) Tablet PO 02/04/25 08:59 QDAY ADAM Plan A 63-year-old male with significant past medical history of hypertension, diabetes mellitus, ESRD on dialysis [M/W/F] for 10 years, BPH, chronic A-fib, renal osteodystrophy, chronic anemia, reflux esophagitis presented to the hospital with chief complaints of shortness of breath and cough since 2 days. # Sepsis # Acute hypoxic respiratory failure # Secondary to bilateral pneumonia # Leukocytosis Viral versus atypical bacterial pneumonia -Patient was brought to the hospital with the complaints of shortness of breath and cough since 2 days -In the ED, patient also noted to have temperature of 101.6 ?F, respiratory rate 25/min, SpO2 100% with 2 L oxygen -SIRS criteria-respiratory rate 25/min, temperature 101.6 degree found heat, WBC 14.3+ bilateral pneumonia = fits into sepsis -Labs showed WBC 14.3, Hb 9.6, platelets 94, procalcitonin 0.58 -Chest x-ray showed bilateral patchy infiltrates -COVID-19 testing negative, influenza A and B are ordered -Blood cultures are negative after 24hrs Plan -MRSA nasal screen, sputum culture and sensitivity were ordered -Started on ceftriaxone and doxycycline [01/04- -started on promethazine and dextromethorphan as needed -Nebulizations as needed -Oxygen as needed # ESRD on HD [M/W/F] # Hyponatremia, resolving # Hyperkalemia, resolving Secondary to hypertensive nephrosclerosis -Patient is getting hemodialysis through the AV fistula -No dialysis catheter is noted Plan -Scheduled dialysis today and as per his routine schedule -Parathormone is ordered - 517.5, calcium and phosphorous levels are within normal limits # Chronic anemia -Hemoglobin at the time of admission is 9.6 -Patient's hemoglobin is ranging from 9-11 since 2018 -Patient was found to have iron deficiency anemia in 11/2024 -Patient is receiving erythropoietin injections during hemodialysis -Referred to be in the by his PCP for chronic anemia, but patient deferred further care from blocker and polisher gold wheel -will monitor CBC # Thrombocytopenia, resolving -Likely due to acute illness -Will monitor CBC # Hypertension -Blood pressure at the time of admission is 156/84 mmHg Plan -Medication reconciliation is done # Diabetes mellitus, type II -HbA1c is ordered - 5.9 -Patient is using glipizide 5 Mg p.o. twice daily at home -Insulin sliding scale is ordered # Chronic atrial fibrillation -[id number] score is 3 -Resumed his carvedilol, amiodarone and will resume diltiazem once med rec is done -Eliquis is held in view of anticipated dental procedure -Will hold it for now #? Congestive heart failure #? Mitral regurgitation -Patient is using Entresto, but denies cardiac history -On physical examination, systolic murmur heard in all areas -Ordered echocardiogram -Resumed [facility] Hospital Maintenance: Dispo: Telemetry bed DVT ppx: Heparin GI ppx: Not needed Diet: Renal IV lines: Peripheral Code status: Full code Patient plan of care was discussed with the attending physician, Dr. Deondre Carrillo, PGY1 Attending Provider Attestation/Addendum Patient seen and examined with resident physician Dr. Davis. Note reviewed, agree with findings and recommendations. Admitted for pneumonia and hypoxic respiratory failure. Noted to have edema. Today he is going to get extra session due to hypoxia, fluid overload, hyperkalemia. plan of care discussed with . Will repeat chest x-ray in a.m. postdialysis tomorrow. If clinically stable will plan for discharge in a.m. postdialysis Patient currently seen on dialysis. Tolerating dialysis without any problems. Hemodialysis for 3 hours, 2K, ultrafiltration 2-3 L, Epogen 6000, no heparin ordered. Plan of care discussed with the dialysis nurse. Please see dialysis flowsheet for further details. Continue with antibiotics, oxygen. Platelet count seems to be low. Hold heparin.
[2025-01-05] MEDS: CALCITRIOL 0.25 mCg CAPSULE 1 MCG PO (12:07)
[2025-01-05] MEDS: VIT B12/Vit C/FA (Nephrovite) TABLET 1 TAB PO (12:08)
[2025-01-05] MEDS: CALCIUM ACETATE 667 MG TABLET 1334 MG PO ×2 (12:08→17:22)
[2025-01-05] MEDS: DOXYCYCLINE 100 MG TABLET PO ×2 (12:09→20:19)
[2025-01-05 12:54] LABS: Cocci Serology, IgM Negative (Negative)
[2025-01-05] MEDS: SEVELAMER CARBONATE 800 MG TABLET 2400 MG PO ×2 (13:23→21:22)
[2025-01-05] MEDS: cefTRIAXone/D5w 1gm IV premix 50 ML IV (20:19)
[2025-01-05] MEDS: SACUBITRIL 24 MG/VALSARTAN 26 MG TABLET 1 TAB PO (20:19)
[2025-01-05] MEDS: INSULIN LISPRO (AdmeLOG) 1 UNIT/0.01 ML UNIT SC (20:19)
[2025-01-05] MEDS: carVEDILOL 12.5 MG TABLET 25 MG PO (20:19)
[2025-01-06] VITALS (26 sets, daily range): BP systolic 127–166; BP diastolic 65–97; PULSE 60–82; RESP 12–96; TEMP 36.2–37.2; O2SAT 95–100; BMI 29.5
[2025-01-06] MEDS: SEVELAMER CARBONATE 800 MG TABLET 2400 MG PO ×3 (05:09→21:08)
--- NOTE | 2025-01-06 06:00 | XR_ITS ---
Examination: AP chest single view Technique one AP portable upright chest single view Exam date and time: January 06, 2025 at 0354 hrs. Comparison January 03, 2025 Indications: Bilateral pneumonia with heart failure on chest imaging January 03, 2025 Findings: Prominent CHF Mild to moderate enlargement cardiac contour Prominent vascular congestion including central vascular engorgement with perihilar edema Opacity right base consistent with pneumonia Prominent osteopenia Impression: Prominent CHF Significant right base pneumonia
[2025-01-06 06:03] LABS: Basophils % (Auto) 0 % (0-2.5); Eosinophils # (Auto) 0.3 Thou/mm3 (0.0-0.5); Eosinophils % (Auto) 4 % (0-10); Hematocrit 29.6 % (41.0-53.0); Hemoglobin 9.6 g/dL (13.5-16.0); Immature Granulocytes % (Auto) 0 % (0-0); Immature Granulocytes Auto 0.02 Thou/mm3 (0.00-0.00); Lymphocytes # (Auto) 0.6 Thou/mm3 (1.0-4.8); Lymphocytes % (Auto) 7 % (10-50); Mean Corpuscular HGB Conc 32.4 g/dl (31.0-37.0); Mean Corpuscular Volume 102 fL (80-100); Monocytes # (Auto) 0.6 Thou/mm3 (0.0-0.8); Monocytes % (Auto) 8 % (0-12); Neutrophils # (Auto) 6.6 Thou/mm3 (1.8-7.7); Neutrophils % (Auto) 81 % (37-80); Nucleated Red Blood Cell % 0 /100 WBC (0); Platelet Count 112 Thou/mm3 (140-440); RDW Standard Deviation 58.3 fL (35.1-43.9); Red Blood Count 2.91 Miln/mm3 (4.50-5.90); White Blood Count 8.1 Thou/mm3 (3.8-10.6)
[2025-01-06 06:19] LABS: Alanine Aminotransferase 18 U/L (10-49); Albumin, Serum 4.1 gm/dL (3.4-4.8); Albumin/Globulin Ratio 1.3 (1.2-2.2); Alkaline Phosphatase 108 U/L (46-116); Anion Gap 12 (7-16); Aspartate Amino Transferase 19 U/L (0-34); BUN/Creatinine Ratio 7 Ratio (12-20); Bilirubin,Total 0.4 mg/dL (0.3-1.2); Blood Urea Nitrogen 39 mg/dL (9-23); Calcium 9.3 mg/dL (8.3-10.6); Calcium (Corrected) 9.3 mg/dL (8.5-10.1); Carbon Dioxide 29.7 mMol/L (20.0-31.0); Chloride 94 mMol/L (98-107); Creatinine (Component) 5.9 mg/dL (0.6-1.3); Estimated Creatinine Clearance 14.2 mL/min (>60); Globulin 3.1 gm/dL (2.3-3.5); Glucose 104 mg/dL (74-106); Osmolality,Calculated 281 (275-295); Potassium 4.5 mMol/L (3.4-5.1); Sodium 136 mMol/L (136-145); Total Protein 7.2 gm/dL (5.7-8.2); eGFR 10 See Note
--- NOTE | 2025-01-06 09:28 | ECHO_ITS ---
Transthoracic Echo Report Ht (in): 66 Wt (lb): 176 Exam Location: Portable Status: Inpatient Check Weigher: MENDOZA Mandy^^^^ Indications: Procedure Performed: BP: 126 / 78 HR: 80 Technical Quality: Fair MEASUREMENTS (Male / Female) Normal Values 2D ECHO LV Diastolic Diameter PLAX 5.8 cm 4.2 - 5.9 / 3.9 - 5.3 cm LV Systolic Diameter PLAX 5.1 cm IVS Diastolic Thickness 1.0 cm 0.6 - 1.0 / 0.6 - 0.9 cm LVPW Diastolic Thickness 0.9 cm 0.6 - 1.0 / 0.6 - 0.9 cm LV Relative Wall Thickness 0.3 LVOT Diameter 2.0 cm Aortic Root Diameter 3.1 cm LA Systolic Diameter LX 4.6 cm 3.0 - 4.0 / 2.7 - 3.8 cm LV Ejection Fraction MOD BP 38.9 % >= 55 % LV Cardiac Index MOD BP 2791.8 cm?/min?m? LV Ejection Fraction MOD 4C 38.4 % LV Cardiac Index MOD 4C 2915.0 cm?/min?m? LV Ejection Fraction 4C AL 40.3 % LV Cardiac Index 4C AL 3247.9 cm?/min?m? LV Ejection Fraction MOD 2C 37.9 % LV Cardiac Index MOD 2C 2488.0 cm?/min?m? LV Ejection Fraction 2C AL 42.7 % LV Cardiac Index 2C AL 2847.3 cm?/min?m? LA Volume Index 57.5 cm?/m? 16 - 28 cm?/m? Ascending Aorta Diameter 3.3 cm DOPPLER AV Peak Velocity 351.0 cm/s AV Peak Gradient 49.3 mmHg AV Mean Gradient 30.5 mmHg AV Velocity Time Integral 83.5 cm AI Peak Velocity 357.0 cm/s AI Peak Gradient 51.0 mmHg AI Pressure Half Time 540.0 ms LVOT Peak Velocity 97.5 cm/s LVOT Peak Gradient 3.8 mmHg LVOT Velocity Time Integral 17.8 cm LVOT Cardiac Index 2295.9 cm?/min?m? AV Area Cont Eq vti 0.7 cm? AV Area Cont Eq pk 0.9 cm? MV Peak Velocity 168.0 cm/s MV Peak Gradient 11.3 mmHg MV Mean Velocity 115.0 cm/s MV Mean Gradient 6.0 mmHg MV Area PHT 4.6 cm? MR Peak Velocity 550.0 cm/s MR Peak Gradient 121.0 mmHg Mitral E Point Velocity 85.3 cm/s Mitral A Point Velocity 50.4 cm/s Mitral E to A Ratio 1.7 LV E' Lateral Velocity 12.6 cm/s Mitral E to LV E' Lateral Ratio 6.8 LV E' Septal Velocity 6.0 cm/s Mitral E to LV E' Septal Ratio 14.1 TR Peak Velocity 258.3 cm/s TR Peak Gradient 26.7 mmHg PV Peak Velocity 146.0 cm/s PV Peak Gradient 8.5 mmHg RVOT Peak Velocity 102.0 cm/s FINDINGS Left Ventricle The left ventricular cavity size is mildly increased. Global left ventricular systolic function is moderately decreased. The left ventricular ejection fraction is moderately decreased, estimated at 35-40%. Right Ventricle The right ventricle is normal in size and systolic function. The estimated right ventricular systolic pressure, 40 mmHg. Left Atrium Moderately increased left atrial volume 57.5 mL/m?. Right Atrium The right atrial cavity size is mildly increased. Atrial Septum The interatrial septum appears normal with no evidence of a shunt. Aorta The aorta is normal by two-dimensional, color flow and Doppler interrogation. Mitral Valve [id number] mitral regurgitation. Mitral annular calcification. Aortic Valve Moderate aortic valve stenosis, mean gradient 30.5 mmHg, MEREDITH 0.67 cm?. Mild aortic valve regurgitation. Tricuspid Valve There is mild tricuspid valve regurgitation. Pulmonic Valve Trivial pulmonic valve regurgitation. Vessels The pulmonary artery appears normal. The inferior vena cava pulmonary and hepatic veins appear normal. Pericardium The pericardium is normal by two-dimensional imaging. There is no significant pericardial effusion. CONCLUSIONS indication: murmur Moderate to severe calcific aortic stenosis V max 3.6 m/sec mean gradient 31 mm Hg peak Gradient 53 mm hG Mild aortic regurgitation Mildy dilated LV with moderate LV dysfunction LVEF 40% MAC with mild mitral regurgitation Mild tricusoid regurgition Normal PA pressure Biatrial enlargement Ghislaine Diane (Electronically Signed) Final Date: 07 January 2025 14:52
[2025-01-06] MEDS: EPOETIN ALFA-EPBX INJ 10,000 UNIT/ML VIAL (ESRD) 10000 UNIT SC (11:30)
[2025-01-06] MEDS: CALCIUM ACETATE 667 MG TABLET 1334 MG PO ×2 (12:35→17:52)
[2025-01-06 13:10] LABS: Cocci Serology, IgG Negative (Negative)
--- NOTE | 2025-01-06 15:07 | ESPR_ITS ---
Documentation for date of: 01/06/25 Subjective Subjective Interval history: Mr. De Oliveira is a 63-year-old male with significant past medical history of hypertension, diabetes mellitus, ESRD on dialysis [M/W/F] for 10 years, BPH, chronic A-fib, renal osteodystrophy, chronic anemia, reflux esophagitis presented to the hospital with chief complaints of shortness of breath and cough since 2 days. Patient was apparently normal till 2 days ago, then developed severe cough which is nonproductive and associated with sore throat. Patient also stated that he is having shortness of breath without any abdominal distention, worsening of preexistent pedal edema. Denies fever, burning micturition, nausea, vomitings, palpitations. Denies any other sick contacts in the family or recent travel history ED Course: -Initial vitals were blood pressure 156/84 mmHg, pulse rate 85 bpm, respiratory rate 25/min, temperature 101.6 ?F, SpO2 100% with 2 L oxygen -Labs significant for WBC 14.3, Hb 9.6, MCV 101, sodium 130, potassium 5.9, chloride 88, BUN 66, creatinine 9.4, glucose 143, BNP 3628, procalcitonin 0.58 -EKG showed atrial fibrillation with QTc 455. Chest x-ray showed bilateral patchy infiltrates -In the ED, patient was given ceftriaxone and azithromycin -Patient was admitted for acute hypoxic respiratory failure secondary to bilateral pneumonia 01/05/2025 Patient was seen and examined bedside. Stated that his overall clinical condition improved. No acute overnight events Labs done showed sodium 133, potassium 5.3, BUN 47, creatinine 7 Patient will be scheduled dialysis today and rest of the dialysis sessions will be continued as per his routine schedule. 01/06/2025 Patient is seen and examined at the bedside Got HD today as per his routine schedule Labs reviewed and physical examination remains unchanged Chest x Ray improved Scheduled for HD today Exam Vital Signs Temp Pulse Resp BP Pulse Ox O2 Del Method O2 Flow Rate 97.6 F 70 19 138/78 H 95 Room Air 0 01/06/25 12:25 01/06/25 12:30 01/06/25 12:25 01/06/25 12:25 01/06/25 12:25 01/06/25 12:01/05/25 04:00 Narrative Exam General: Awake. HEENT: Normocephalic, atraumatic, mucous membranes moist. Heart: Irregular rate and rhythm, systolic murmur heard in all areas Lungs: Clear to auscultation with no wheezing or crackles. Abdomen: Soft, nondistended, nontender, positive bowel sounds. ?No guarding or rebound tenderness. Neurologic: Alert and oriented x3, no gross neurological deficit, and patient able to move all 4 extremities. Extremities: Edema improved in both lower extremities Skin: No rash or ecchymoses. Objective Labs 01/07/25 05:11 01/07/25 05:11 Labs: Laboratory Results - last 24 hr 01/05/25 01/06/25 04:50 05:09 WBC 8.1 RBC 2.91 L Hgb 9.6 L Hct 29.6 L MCV 102 H MCH 33.0 MCHC 32.4 RDW Std Deviation 58.3 H Plt Count 112 L Neut % (Auto) 81 H Lymph % (Auto) 7 L [place] % (Auto) 8 Eos % (Auto) 4 Baso % (Auto) 0 Neut # (Auto) 6.6 Lymph # (Auto) 0.6 L [place] # (Auto) 0.6 Eos # (Auto) 0.3 Baso # (Auto) 0.0 Immature Gran # (Auto) 0.02 H Absolute Nucleated RBC 0.00 Immature Gran % 0 Nucleated RBC % 0 Sodium 136 Potassium 4.5 D Chloride 94 L Carbon Dioxide 29.7 Anion Gap 12 BUN 39 H Creatinine 5.9 H* D Estim Creat Clear Calc 14.2 L eGFR 10 L* BUN/Creatinine Ratio 7 L Glucose 104 Calculated Osmolality 281 Calcium 9.3 Corrected Calcium 9.3 Total Bilirubin 0.4 AST 19 ALT 18 Alkaline Phosphatase 108 Total Protein 7.2 Albumin 4.1 Globulin 3.1 Albumin/Globulin Ratio 1.3 Coccidioides IgG Ab Negative Quality Measures Quality Measures VTE prophylaxis Advance care planning discussed with:: patient and spouse Assessment & Plan Assessment Current Active Medications: Generic Name Dose Route Start Last Admin Trade Name Freq PRN Reason Stop Dose Admin Albuterol/Ipratropium 3 ml 01/04/25 09:46 Albuterol/Ipratropium (Duoneb) Rt Jackelin 3 Ml Nebu INH 02/03/25 09:59 Q8HRRT PRN sob or wheeze Amiodarone HCl 200 mg 01/05/25 09:00 01/06/25 14:41 Amiodarone Hcl 200 Mg Tablet PO 02/04/25 08:59 Not Given QDAY [facility] Calcitriol 1 mcg 01/05/25 09:00 01/06/25 14:41 Calcitriol 0.25 Mcg Capsule PO 02/04/25 08:59 Not Given QDAY [facility] Calcium Acetate 1,334 mg 01/05/25 08:00 01/06/25 12:35 Calcium Acetate 667 Mg Tablet PO 02/04/25 07:59 1,334 mg TIDWMEAL [facility] Administration Carvedilol 25 mg 01/05/25 09:00 01/06/25 08:29 Carvedilol 12.5 Mg Tablet PO 02/04/25 08:59 Not Given BID [facility] Cyclobenzaprine HCl 10 mg 01/05/25 07:45 Cyclobenzaprine 5 Mg Tablet PO 02/05/25 07:44 HS PRN muscle spasm Dextrose 25 ml 01/04/25 16:07 Dextrose 50%-Water Inj 50 Ml Syringe IV 02/03/25 16:06 Q15MIN PRN BG 50-70 responsive npo pt Dextrose 50 ml 01/04/25 16:07 Dextrose 50%-Water Inj 50 Ml Syringe IV 02/03/25 16:06 Q15MIN PRN BG <50 OR BG <70 & pt unresponsive Diltiazem HCl 120 mg 01/05/25 09:00 01/06/25 14:41 Diltiazem Cd 120 Mg Capcr PO 02/04/25 08:59 Not Given QDAY [facility] Doxycycline Hyclate 100 mg 01/04/25 10:00 01/06/25 14:41 Doxycycline 100 Mg Tablet PO 01/11/25 09:59 Not Given BID [facility] Glucagon 1 mg 01/04/25 16:07 Glucagon Inj 1 Mg Vial IM Q15MIN PRN BG <70, and no IV access Heparin Sodium (Porcine) 5,000 unit 01/04/25 22:00 Heparin Sod Inj 5000 Unit/Ml Vial SC 01/18/25 21:59 Q8HR [facility] Albumin Human 25 gm in 100 mls @ 100 mls/min 01/04/25 09:18 Albuminar-25 Ivpb IV PRN PRN DIALYSIS Ceftriaxone Sodium/Dextrose 50 mls @ 100 mls/hr 01/05/25 21:00 01/05/25 20:19 Rocephin/D5w 1gm Iv Premix IV 01/11/25 09:42 100 mls/hr HS ADAM Administration Insulin Human Lispro 0 unit 01/04/25 17:00 01/06/25 14:42 Insulin Lispro (Admelog) 1 Unit/0.01 Ml Unit SC 02/03/25 16:59 Not Given ACHS ADAM Protocol Promethazine HCl/Dextromethorphan 5 ml 01/04/25 09:47 Promethazine/Dm Syrup 5 Ml Dose PO 02/03/25 09:46 Q6HR PRN COUGH Protocol Sacubitril/Valsartan 1 tab 01/05/25 09:00 01/06/25 14:41 Sacubitril 24 Mg/Valsartan 26 Mg Tablet PO 02/04/25 08:59 Not Given BID ADAM Sevelamer Carbonate 2,400 mg 01/05/25 14:00 01/06/25 14:43 Sevelamer Carbonate 800 Mg Tablet PO 02/04/25 13:59 2,400 mg TID ADAM Administration Vitamin B Complex/Vit C/Folic Acid 1 tab 01/05/25 09:00 01/06/25 14:42 Vit B12/Vit C/Fa (Nephrovite) Tablet PO 02/04/25 08:59 Not Given QDAY ADAM Plan A 63-year-old male with significant past medical history of hypertension, diabetes mellitus, ESRD on dialysis [M/W/F] for 10 years, BPH, chronic A-fib, renal osteodystrophy, chronic anemia, reflux esophagitis presented to the hospital with chief complaints of shortness of breath and cough since 2 days. # Sepsis, resolved # Acute hypoxic respiratory failure, resolved # Secondary to bilateral pneumonia, resolving # Leukocytosis, resolved Viral versus atypical bacterial pneumonia -Patient was brought to the hospital with the complaints of shortness of breath and cough since 2 days -In the ED, patient also noted to have temperature of 101.6 ?F, respiratory rate 25/min, SpO2 100% with 2 L oxygen -SIRS criteria-respiratory rate 25/min, temperature 101.6 degree found heat, WBC 14.3+ bilateral pneumonia = fits into sepsis -Labs showed WBC 14.3, Hb 9.6, platelets 94, procalcitonin 0.58 -Chest x-ray showed bilateral patchy infiltrates -COVID-19 testing negative, influenza A and B are ordered -Blood cultures are negative after 24hrs -MRSA nasal screen came back negative Plan -Sputum culture and sensitivity were ordered -Started on ceftriaxone and doxycycline [01/04- -started on promethazine and dextromethorphan as needed -Nebulizations as needed -Oxygen as needed # ESRD on HD [M/W/F] # Hyponatremia, resolved # Hyperkalemia, resolved Secondary to hypertensive nephrosclerosis -Patient is getting hemodialysis through the AV fistula -No dialysis catheter is noted Plan -Scheduled dialysis as per his routine schedule -Parathormone is ordered - 517.5, calcium and phosphorous levels are within normal limits # Chronic anemia -Hemoglobin at the time of admission is 9.6 -Patient's hemoglobin is ranging from 9-11 since 2017 -Patient was found to have iron deficiency anemia in 11/2024 -Patient is receiving erythropoietin injections during hemodialysis -Referred to be in the by his PCP for chronic anemia, but patient deferred further care from tester equipment -will monitor CBC # Thrombocytopenia, resolving -Likely due to acute illness -Will monitor CBC # Hypertension, well controlled -Blood pressure at the time of admission is 156/84 mmHg Plan -Medication reconciliation is done # Diabetes mellitus, type II -HbA1c is ordered - 5.9 -Patient is using glipizide 5 Mg p.o. twice daily at home -Insulin sliding scale is ordered # Chronic atrial fibrillation -[id number] score is 3 -Resumed his carvedilol, amiodarone and will resume diltiazem once med rec is done -Eliquis is held in view of anticipated dental procedure -Will hold it for now #? Congestive heart failure #? Mitral regurgitation -Patient is using Entresto, but denies cardiac history -On physical examination, systolic murmur heard in all areas -Ordered echocardiogram -Resumed Entreo Hospital Maintenance: Dispo: Telemetry bed DVT ppx: Heparin GI ppx: Not needed Diet: Renal IV lines: Peripheral Code status: Full code Patient plan of care was discussed with the attending physician, Dr. Deondre Carrillo, PGY1 Attending Provider Attestation/Addendum Patient seen and examined with resident physician Dr. Davis. Note reviewed, agree with findings and recommendations. Admitted for pneumonia and hypoxic respiratory failure. Noted to have edema. Today he is going to get extra session due to hypoxia, fluid overload, hyperkalemia. plan of care discussed with . Will repeat chest x-ray in a.m. postdialysis tomorrow. If clinically stable will plan for discharge in a.m. Patient currently seen on dialysis. Tolerating dialysis without any problems. Hemodialysis for 3 hours, 2K, ultrafiltration 2-3 L, Epogen 6000, no heparin ordered. Plan of care discussed with the dialysis nurse. Please see dialysis flowsheet for further details. Continue with antibiotics, oxygen. Platelet count seems to be low. Hold heparin.
[2025-01-06] MEDS: INSULIN LISPRO (AdmeLOG) 1 UNIT/0.01 ML UNIT SC ×2 (17:04→21:11)
[2025-01-06] MEDS: SACUBITRIL 24 MG/VALSARTAN 26 MG TABLET 1 TAB PO (21:04)
[2025-01-06] MEDS: cefTRIAXone/D5w 1gm IV premix 50 ML IV (21:04)
[2025-01-06] MEDS: carVEDILOL 12.5 MG TABLET 25 MG PO (21:04)
[2025-01-06] MEDS: DOXYCYCLINE 100 MG TABLET PO (21:05)
[2025-01-07] VITALS (9 sets, daily range): BP systolic 134–153; BP diastolic 71–93; PULSE 64–80; RESP 16–99; TEMP 36.1–37.4; O2SAT 96–100; BMI 29.4
[2025-01-07 06:14] LABS: Basophils # (Auto) 0.1 Thou/mm3 (0.0-0.2); Basophils % (Auto) 1 % (0-2.5); Eosinophils # (Auto) 0.3 Thou/mm3 (0.0-0.5); Eosinophils % (Auto) 5 % (0-10); Hematocrit 28.6 % (41.0-53.0); Hemoglobin 9.4 g/dL (13.5-16.0); Immature Granulocytes % (Auto) 0 % (0-0); Immature Granulocytes Auto 0.02 Thou/mm3 (0.00-0.00); Lymphocytes # (Auto) 0.7 Thou/mm3 (1.0-4.8); Lymphocytes % (Auto) 10 % (10-50); Mean Corpuscular HGB Conc 32.9 g/dl (31.0-37.0); Mean Corpuscular Hemoglobin 33.2 pg (25.0-35.0); Mean Corpuscular Volume 101 fL (80-100); Monocytes # (Auto) 0.7 Thou/mm3 (0.0-0.8); Monocytes % (Auto) 10 % (0-12); Neutrophils # (Auto) 5.1 Thou/mm3 (1.8-7.7); Neutrophils % (Auto) 74 % (37-80); Nucleated Red Blood Cell % 0 /100 WBC (0); Platelet Count 138 Thou/mm3 (140-440); Red Blood Count 2.83 Miln/mm3 (4.50-5.90)
[2025-01-07] MEDS: SEVELAMER CARBONATE 800 MG TABLET 2400 MG PO ×2 (06:24→13:47)
[2025-01-07 06:47] LABS: Alanine Aminotransferase 15 U/L (10-49); Albumin, Serum 3.9 gm/dL (3.4-4.8); Albumin/Globulin Ratio 1.4 (1.2-2.2); Alkaline Phosphatase 96 U/L (46-116); Anion Gap 11 (7-16); Aspartate Amino Transferase 19 U/L (0-34); BUN/Creatinine Ratio 7 Ratio (12-20); Bilirubin,Total 0.3 mg/dL (0.3-1.2); Blood Urea Nitrogen 37 mg/dL (9-23); Calcium 9.4 mg/dL (8.3-10.6); Calcium (Corrected) 9.5 mg/dL (8.5-10.1); Carbon Dioxide 30.4 mMol/L (20.0-31.0); Chloride 95 mMol/L (98-107); Creatinine (Component) 5.4 mg/dL (0.6-1.3); Globulin 2.8 gm/dL (2.3-3.5); Glucose 93 mg/dL (74-106); Osmolality,Calculated 280 (275-295); Sodium 136 mMol/L (136-145); Total Protein 6.7 gm/dL (5.7-8.2); eGFR 11 See Note
[2025-01-07] MEDS: CALCIUM ACETATE 667 MG TABLET 1334 MG PO ×2 (07:38→12:24)
[2025-01-07] MEDS: CALCITRIOL 0.25 mCg CAPSULE 1 MCG PO (09:39)
[2025-01-07] MEDS: VIT B12/Vit C/FA (Nephrovite) TABLET 1 TAB PO (09:39)
[2025-01-07] MEDS: DOXYCYCLINE 100 MG TABLET PO (09:39)
[2025-01-07] MEDS: AMIODARONE HCL 200 MG TABLET PO (09:39)
[2025-01-07] MEDS: carVEDILOL 12.5 MG TABLET 25 MG PO (09:40)
[2025-01-07] MEDS: DILTIAZEM CD 120 MG CAPCR PO (09:40)
[2025-01-07] MEDS: SACUBITRIL 24 MG/VALSARTAN 26 MG TABLET 1 TAB PO (09:40)
--- NOTE | 2025-01-07 14:13 | ESDS_ITS ---
Planned Discharge Date 01/07/25 DS: Providers Provider Date of admission: 01/03/25 23:12 Primary care physician: Sandra Mendosa MD Admitting Provider: Sandra Mendosa MD Attending Provider on Admission: Sandra Mendosa MD Attending Provider on DC: Ryan Carrillo MD Discharging Provider: Ryan Carrillo MD DS: Diagnosis Problem List Completed Was Problem List Reviewed/Reconciled?: Yes Hospital Course Hospital Course Hospital course: Mr. De Oliveira is a 63-year-old male with significant past medical history of hypertension, diabetes mellitus, ESRD on dialysis [M/W/F] for 10 years, BPH, chronic A-fib, renal osteodystrophy, chronic anemia, reflux esophagitis presented to the hospital with chief complaints of shortness of breath and cough since 2 days and admitted for Acute hypoxic respiratory failure due to pneumonia. Labs significant for WBC 14.3, Hb 9.6, MCV 101, sodium 130, potassium 5.9, chloride 88, BUN 66, creatinine 9.4, glucose 143, BNP 3628, procalcitonin 0.58. EKG showed atrial fibrillation with QTc 455. Chest x-ray showed bilateral patchy infiltrates. Echo showed Moderate to severe calcific aortic stenosis V max 3.6 m/sec. Patient is treated with I.V antibiotics during the hospital stay and got his routine dialysis sessions Patient is discharged with the following medications and recommendations -Follow-up with PCP within 1 week of discharge. -Continue Augmentin p.o for 7 days after dialysis on the day of dialysis -Continue dialysis sessions as per routine schedule -Recommended salt and fluid restriction. -Return to ED if symptoms persist or return # Sepsis, resolved # Acute hypoxic respiratory failure, resolved # Secondary to bilateral pneumonia, resolving # Leukocytosis, resolved # ESRD on HD [M/W/F] # Chronic anemia # Thrombocytopenia, # Hypertension, well controlled # Diabetes mellitus, type II # Chronic atrial fibrillation # Aortic stenosis Patient plan of care was discussed with the attending physician, Dr. Deondre Carrillo, PGY1 Status at Discharge Cognitive/behavioral status at discharge: Stable Functional status at discharge: independent ambulation Overall status at discharge: patient is back to baseline Time Spent with Patient Time attestation: Total time spent providing and/or coordinating discharge services: 35 minutes Exam Vital Signs Temp Pulse Resp BP Pulse Ox O2 Del Method O2 Flow Rate 97.6 F 76 16 152/92 H 100 Room Air 0 01/07/25 12:00 01/07/25 12:00 01/07/25 12:00 01/07/25 12:00 01/07/25 12:00 01/07/25 08:00 01/07/25 00:00 Narrative Exam General: Awake. HEENT: Normocephalic, atraumatic, mucous membranes moist. Heart: Irregular rate and rhythm, systolic murmur heard in all areas Lungs: Clear to auscultation with no wheezing or crackles. Abdomen: Soft, nondistended, nontender, positive bowel sounds. ?No guarding or rebound tenderness. Neurologic: Alert and oriented x3, no gross neurological deficit, and patient able to move all 4 extremities. Extremities: Edema improved in both lower extremities Skin: No rash or ecchymoses. Discharge Plan Plan Patient Disposition: HOME (Self Care) Patient condition on transfer: Stable Care Plan Goals: -Follow-up with PCP within 1 week of discharge. -Continue Augmentin p.o for 7 days after dialysis on the day of dialysis -Continue dialysis sessions as per routine schedule -Recommended salt and fluid restriction. -Return to ED if symptoms persist or return Prescriptions/Referrals Prescriptions/Med Rec: New amoxicillin-pot clavulanate [Augmentin] 500-125 mg tablet 1 tab PO QDAY 7 Days Qty: 7 0RF Rx Instructions: On HD days, take after dialysis Continued carvedilol 25 mg tablet 25 mg PO Q12H Patient Comments: TOME 1 TABLETA POR V A ORAL DOS VECES AL D A alprazolam 0.5 mg tablet 0.5 mg PO QDAY PRN (Reason: anxiety) Patient Comments: TOME GREG TABLETA TODOS LOS D CUANDO SEA NECESARIO diltiazem HCl 120 mg capsule,extended release 24 hr 120 mg PO QDAY Patient Comments: TOME 1 C PSULA POR V A ORAL TODOS LOS D sodium polystyrene sulfonate Powder 15 g PO QDAY Patient Comments: MESCLE 15 GM EN LIQUIDO Y TOME TODOS LOS D glipizide 5 mg tablet 5 mg PO BID Patient Comments: TOME GREG TABLETA POR V A ORAL DOS VECES AL D A sevelamer carbonate 2.4 gram powder in packet 2.4 g PO TID Patient Comments: MEZCLAR 1 PAQUETE Y TOME SEG N LO INDICADO MISAEL VECES AL D A Entresto 24-26 mg tablet 1 tab PO BID Patient Comments: TOME 1 TABLETA POR V A ORAL DOS VECES AL D A cyclobenzaprine 10 mg tablet 10 mg PO HS PRN (Reason: muscle spasm) Patient Comments: TOME 1 TABLETA POR V A ORAL TODOS LOS D AL ACOSTARSE CUANDO SEA NECESARIO Eliquis 2.5 mg tablet 2.5 mg PO Q12H calcium acetate(phosphat bind) 667 mg capsule 1,334 mg PO TIDWMEAL Patient Comments: TOME 2 CAPSULAS POR VIA ORAL MISAEL VECES AL SOHAIL CON ALIMENTO amiodarone 200 mg tablet 200 mg PO QDAY Nephro-Jj 0.8 mg tablet 1 tab PO QDAY No Action loratadine 10 mg tablet 10 mg PO QDAY Patient Comments: TOME GREG TABLETA POR V A ORAL TODOS LOS D Dialyvite 800 0.8 mg tablet 1 tab PO QDAY Referrals: Sandra Mendosa MD [Primary Care Provider] - Patient/Caregiver Discharge Instructions Discharge Activity: activity as tolerated Education Materials: Kidney Disease Potassium in Diet, Kidney Disease: Limiting Fluids Print Language: Chinese Activity Restrictions/Additional Instructions: Follow-up with Dr. Mendosa in 1 to 2 weeks Stand Alone Forms: Elizabeth Award Info., Patient Portal Info Letter Discharge Order Discharge Orders: Discharge (Routine); Ordered 01/07/25 Ordered By: Ryan Carrillo Quality Discharge Quality Measures VTE prophylaxis MD Attestestation MD Attestation Patient seen and examined with resident physician Dr. Davis. Note reviewed, agree with findings and recommendations. Admitted for pneumonia and hypoxic respiratory failure. Noted to have edema. Patient received 3 dialysis sessions and he is feeling much better. Chest x-ray still showed mild pneumonia. Will discharge him on p.o. Augmentin.
== END 2025-01-07 16:26 | disposition home or self-care (01) | DRG 871 ==
LOC: SERX 22:52 → SERHOLD 23:24 → S2NX 01-04 16:06
PROVIDERS: Nurse Practitioner Family; Admitting Provider Internal Medicine; Emergency Provider Emergency Medicine; PCP Internal Medicine; Visit Provider Internal Medicine
DX: A41.9 Sepsis, unspecified organism (principal); J18.9 Pneumonia, unspecified organism; N18.6 End stage renal disease; I48.20 Chronic atrial fibrillation, unspecified; E87.1 Hypo-osmolality and hyponatremia; I13.2 Hypertensive heart and chronic kidney disease with heart failure and with stage 5 chronic kidney disease, or end stage renal disease; E11.22 Type 2 diabetes mellitus with diabetic chronic kidney disease; K21.00 Gastro-esophageal reflux disease with esophagitis, without bleeding; E87.5 Hyperkalemia; D50.9 Iron deficiency anemia, unspecified; D63.1 Anemia in chronic kidney disease; N25.0 Renal osteodystrophy; D69.6 Thrombocytopenia, unspecified; I08.0 Rheumatic disorders of both mitral and aortic valves; I50.9 Heart failure, unspecified; N40.0 Benign prostatic hyperplasia without lower urinary tract symptoms; Z79.01 Long term (current) use of anticoagulants; Z99.2 Dependence on renal dialysis; Z79.84 Long term (current) use of oral hypoglycemic drugs; Z87.891 Personal history of nicotine dependence; Z11.52 Encounter for screening for COVID-19
CPT/HCPCS: 36415; 71045; 71260; 74177; 80053; 80061; 80074; 83036; 83605; 83880; 83970; 84100; 84145; 84484; 85025; 86331; 86635; 86706; 87040; 87081; 87205; 87400; 87634; 87811; 93005; 93306; 96365; 96367; 99285; A4649; J0696; J1815; J2543; J7050; Q5105; Q9967; A9270

== ENCOUNTER 2025-01-19 09:54 | Outpatient (RCR) | payer MEDICARE, MEDICAID, SELFPAY | END 2025-02-17 23:59 | disposition home or self-care (01) | LOC: SCTC 09:54 | PROVIDERS: PCP Internal Medicine; Referring Provider Internal Medicine; Visit Provider Nurse Practitioner Family | DX: D64.9 Anemia, unspecified (principal); D75.89 Other specified diseases of blood and blood-forming organs; R91.8 Other nonspecific abnormal finding of lung field | CPT/HCPCS: 99212; G0463 ==

== ENCOUNTER → 2025-03-09 | Outpatient (CLI) | payer MEDICARE, MEDICAID, SELFPAY ==
[2025-03-09 10:13] LABS: Basophils % (Auto) 1 % (0-2.5); Eosinophils # (Auto) 0.2 Thou/mm3 (0.0-0.5); Eosinophils % (Auto) 2 % (0-10); Hematocrit 30.8 % (41.0-53.0); Hemoglobin 10.3 g/dL (13.5-16.0); Immature Granulocytes % (Auto) 0 % (0-0); Immature Granulocytes Auto 0.02 Thou/mm3 (0.00-0.00); Immature Reticulocyte Fraction 11.8 % (2.3-13.4); Lymphocytes # (Auto) 0.6 Thou/mm3 (1.0-4.8); Lymphocytes % (Auto) 10 % (10-50); Mean Corpuscular HGB Conc 33.4 g/dl (31.0-37.0); Mean Corpuscular Volume 105 fL (80-100); Monocytes # (Auto) 0.8 Thou/mm3 (0.0-0.8); Monocytes % (Auto) 12 % (0-12); Neutrophils # (Auto) 4.7 Thou/mm3 (1.8-7.7); Neutrophils % (Auto) 75 % (37-80); Nucleated Red Blood Cell % 0 /100 WBC (0); Platelet Count 94 Thou/mm3 (140-440); RDW Standard Deviation 62.7 fL (35.1-43.9); Red Blood Count 2.94 Miln/mm3 (4.50-5.90); Reticulocyte % (Auto) 1.5 % (0.5-1.5); Reticulocyte Absolute Auto 44.7 Biln/L (25.0-75.0); Reticulocyte Hgb Content 35.5 pg (28.0-35.0); White Blood Count 6.3 Thou/mm3 (3.8-10.6)
[2025-03-09 10:53] LABS: Ferritin 1602 ng/mL (10.5-307.3); Iron 77 mcg/dL (65-175); Percent Iron Saturation 33 % (20-55); Total Iron Binding Capacity 231 mcg/dL (250-425); Unsaturated Iron Binding 154 (225-295)
[2025-03-09 10:56] LABS: Alanine Aminotransferase 23 U/L (10-49); Albumin, Serum 4.3 gm/dL (3.4-4.8); Albumin/Globulin Ratio 1.4 (1.2-2.2); Alkaline Phosphatase 116 U/L (46-116); Anion Gap 12 (7-16); Aspartate Amino Transferase 26 U/L (0-34); BUN/Creatinine Ratio 8 Ratio (12-20); Bilirubin,Total 0.4 mg/dL (0.3-1.2); Blood Urea Nitrogen 53 mg/dL (9-23); Calcium 8.5 mg/dL (8.3-10.6); Calcium (Corrected) 8.5 mg/dL (8.5-10.1); Carbon Dioxide 30.8 mMol/L (20.0-31.0); Chloride 91 mMol/L (98-107); Creatinine (Component) 6.6 mg/dL (0.6-1.3); Folate > 24.00 ng/mL (>5.38); Globulin 3.1 gm/dL (2.3-3.5); Glucose 114 mg/dL (74-106); LDH (Lactate Dehydrogenase) 192 U/L (120-246); Osmolality,Calculated 283 (275-295); Sodium 134 mMol/L (136-145); Total Protein 7.4 gm/dL (5.7-8.2); Vitamin B12 816 pg/mL (211-911); eGFR 9 See Note
== END | disposition home or self-care (01) ==
LOC: SCTO 09:34
PROVIDERS: PCP Internal Medicine; Referring Provider Nurse Practitioner Family; Visit Provider Nurse Practitioner Family
DX: D64.9 Anemia, unspecified (principal)
CPT/HCPCS: 36415; 80053; 82607; 82728; 82746; 83540; 83550; 83615; 85025; 85046

== ENCOUNTER → 2025-03-23 | Outpatient (CLI) | payer MEDICARE, MEDICAID, SELFPAY ==
--- NOTE | 2025-03-23 09:00 | XR_ITS ---
Examination: MRI abdomen, without contrast Date and time of exam: March 23, [address] chest abdomen pelvis December 31, 2024 INDICATIONS: Diagnosis anemia, renal failure, 17 mm solid lesion lateral margin right kidney on CT abdomen pelvis study December 31, 2024 Technique: Multiple axial sagittal and coronal images of the abdomen have been obtained with the Siemens high-resolution 1.5 Velvet MRI scanner. Images obtained include T2-weighted fat-suppressed sagittal sections, TR 3500, TE 46, T2 weighted coronal fat suppressed images, TR 3050, TE 84, T2-weighted transverse fat suppressed images, TR 3260, TE 63, proton density transverse images, TR 4720 TE 46, and T1 weighted coronal images, TR 560, TE 13. Findings: No focal liver lesions Absent gallbladder Normal common bile duct common hepatic duct Pancreatic duct is not dilated No peripancreatic edema Both kidneys are replaced by numerous cysts Complex appearing lesion lateral lower right kidney, 22 x 22 mm, this may represent a proteinaceous cyst No ascites Aorta normal size No abdominal lymphadenopathy margin right kidney coronal image 24, axial image 26 IMPRESSION: Complex appearing lesion lower lateral margin right kidney 22 x 22 mm, this may represent a complex cyst Recommend this patient return for dedicated renal sonography with the radiologist in attendance
== END | disposition home or self-care (01) ==
PROVIDERS: PCP Internal Medicine; Referring Provider Nurse Practitioner Family; Visit Provider Nurse Practitioner Family
DX: N28.9 Disorder of kidney and ureter, unspecified (principal)
CPT/HCPCS: 74181

== ENCOUNTER 2025-03-30 09:14 | Outpatient (RCR) | payer MEDICARE, MEDICAID, SELFPAY | END 2025-04-19 23:59 | disposition home or self-care (01) | LOC: SCTC 09:14 | PROVIDERS: PCP Internal Medicine; Referring Provider Internal Medicine; Visit Provider Nurse Practitioner Family | DX: N18.6 End stage renal disease (principal); D63.1 Anemia in chronic kidney disease; Z99.2 Dependence on renal dialysis; N28.89 Other specified disorders of kidney and ureter | CPT/HCPCS: 99212; G0463 ==

== ENCOUNTER → 2025-04-01 | Outpatient (CLI) | payer MEDICARE, MEDICAID, SELFPAY ==
--- NOTE | 2025-04-01 11:00 | XR_ITS ---
Examination: Retroperitoneal ultrasound, complete Technique: Multiple high resolution grayscale images of the retroperitoneum obtained, including kidneys and bladder. Exam date and time:April 01, 2025 1048 hours INDICATIONS: Right renal cystic disease 5 years FINDINGS: Right kidney 11.8 cm cortex 1.8 cm Multiple cystic renal disease, the largest cyst lower pole 22 x 18 mm Left kidney 11.1 cm renal cortex 2.0 cm Multiple cystic renal disease, the largest cyst in the lower pole 23 mm x 21 mm Contracted urinary bladder Prostate volume 31.6 cc no prostate nodules IMPRESSION: Multicystic renal disease
== END | disposition home or self-care (01) ==
PROVIDERS: PCP Internal Medicine; Referring Provider Internal Medicine; Visit Provider Internal Medicine
DX: N28.1 Cyst of kidney, acquired (principal); N32.89 Other specified disorders of bladder
CPT/HCPCS: 76770

== ENCOUNTER 2025-05-18 07:08 | Emergency (ER) | payer MEDICARE, MEDICAID, SELFPAY ==
[2025-05-18 07:11] VITALS: BMI 29.3
[2025-05-18 07:36] VITALS: BP 124/68; PULSE 74; RESP 18; TEMP 36.6; O2SAT 98
--- NOTE | 2025-05-18 07:40 | XR_ITS ---
Examination: Duplex scan of the lower extremity, unilateral left complete Date and time of exam: May 18, 2025 0825 hours INDICATIONS: Patient fell 10 days ago with injury to the lower leg, lower leg swelling and pain Technique: Duplex scan of the extremity veins using B-mode/grayscale imaging and Doppler spectral analysis and color flow Attention is directed to internal echogenicity, compression and augmentation involving these veins, color flow assessment, spectral analysis Findings: Major deep venous structures in the extremity demonstrate normal course and caliber. There is no evidence of deep vein thrombosis. Normal color flow and spectral analysis Impression: Negative for DVT..
--- NOTE | 2025-05-18 07:40 | XR_ITS ---
Examination: Tibia-Fibula, left , 2 views Technique: Tibia-fibula AP lateral 2 views Date and time of exam: May 18, 2025 0753 hours INDICATIONS: Patient fell today with injury to lower leg, lower leg pain. FINDINGS: No acute fracture Or dislocation. The soft tissue vascular calcification IMPRESSION: No acute fracture
--- NOTE | 2025-05-18 07:40 | XR_ITS ---
Examination: Foot, left, 3 views Technique: AP, oblique, lateral views foot, 3 views Date and time of exam: May 18, 2025, 0757 hours INDICATIONS: Patient fell today with injury to foot, foot pain. FINDINGS: Severe osteopenia Old deformity proximal phalanx first and second digits No acute fracture Soft tissue vascular calcification IMPRESSION: No acute fracture Given the severe osteopenia, recommend short-term follow-up foot films as clinically warranted
--- NOTE | 2025-05-18 07:41 | PD.EDRME ---
Rapid Medical Screening Exam E Arrival date/time: 05/18/25 07:08 64-year-old male ESRD on dialysis presents to the emergency department today for complaint of left lower extremity redness and swelling after falling approximately 1 week ago Chief Complaint: Fall Vital signs: Vital Signs Temperature 98 F 05/18/25 07:36 Pulse Rate 74 05/18/25 07:36 Respiratory Rate 18 05/18/25 07:36 Blood Pressure 124/68 05/18/25 07:36 Pulse Oximetry (%) 98 05/18/25 07:36 Oxygen Delivery Method Room Air 05/18/25 07:36
[2025-05-18 08:13] VITALS: BP 146/86; PULSE 72; RESP 18; TEMP 36.8; O2SAT 97
[2025-05-18 08:31] LABS: Basophils # (Auto) 0.1 Thou/mm3 (0.0-0.2); Basophils % (Auto) 1 % (0-2.5); Eosinophils # (Auto) 0.5 Thou/mm3 (0.0-0.5); Eosinophils % (Auto) 6 % (0-10); Hematocrit 28.7 % (41.0-53.0); Hemoglobin 9.4 g/dL (13.5-16.0); Immature Granulocytes Auto 0.02 Thou/mm3 (0.00-0.00); Lymphocytes # (Auto) 0.6 Thou/mm3 (1.0-4.8); Lymphocytes % (Auto) 7 % (10-50); Mean Corpuscular HGB Conc 32.8 g/dl (31.0-37.0); Mean Corpuscular Hemoglobin 35.7 pg (25.0-35.0); Mean Corpuscular Volume 109 fL (80-100); Monocytes # (Auto) 0.7 Thou/mm3 (0.0-0.8); Monocytes % (Auto) 8 % (0-12); Neutrophils # (Auto) 6.4 Thou/mm3 (1.8-7.7); Neutrophils % (Auto) 78 % (37-80); Nucleated Red Blood Cell # 0.00 Thou/mm3 (0.00-0.00); Nucleated Red Blood Cell % 0 /100 WBC (0); Platelet Count 133 Thou/mm3 (140-440); RDW Standard Deviation 59.5 fL (35.1-43.9); Red Blood Count 2.63 Miln/mm3 (4.50-5.90); White Blood Count 8.3 Thou/mm3 (3.8-10.6)
[2025-05-18 08:50] LABS: INR 1.1 (0.9-1.3); Partial Thromboplastin Time 36.2 Seconds (22.0-36.0); Prothrombin Time 12.4 Seconds (9.0-12.2)
[2025-05-18 08:52] LABS: Alanine Aminotransferase 33 U/L (10-49); Albumin, Serum 3.9 gm/dL (3.4-4.8); Albumin/Globulin Ratio 1.2 (1.2-2.2); Alkaline Phosphatase 255 U/L (46-116); Anion Gap 11 (7-16); Aspartate Amino Transferase 40 U/L (0-34); BUN/Creatinine Ratio 5 Ratio (12-20); Bilirubin,Total 0.4 mg/dL (0.3-1.2); Blood Urea Nitrogen 32 mg/dL (9-23); Calcium 9.0 mg/dL (8.3-10.6); Calcium (Corrected) 9.1 mg/dL (8.5-10.1); Carbon Dioxide 32.3 mMol/L (20.0-31.0); Chloride 89 mMol/L (98-107); Creatinine (Component) 6.1 mg/dL (0.6-1.3); Estimated Creatinine Clearance 12.2 mL/min (>60); Globulin 3.2 gm/dL (2.3-3.5); Glucose 218 mg/dL (74-106); Osmolality,Calculated 278 (275-295); Potassium 4.4 mMol/L (3.4-5.1); Sodium 132 mMol/L (136-145); Total Protein 7.1 gm/dL (5.7-8.2); eGFR 10 See Note
--- NOTE | 2025-05-18 09:06 | PD.EDFALL ---
ED Fall Injury RME/HPI General Chief Complaint: Fall Stated Complaint: FALL; HIT L) FOOT Time Seen by Provider: 05/18/25 07:46 Arrival date/time: 05/18/25 07:08 RME / HPI RME / HPI Narrative: 05/18/25 07:08 64-year-old male ESRD on dialysis presents to the emergency department today for complaint of left lower extremity redness and swelling after falling approximately [address] KENDRICK MAIN ED EVALUATION 64 year old male patient with history of atrial fibrillation, hypertension, diabetes, ESRD on dialysis M/W/F, BPH, chronic anemia presents to the ED for evaluation of worsening left ankle/foot pain after fall occurring 12 days ago. Reports he was leaving the dialysis clinic when he misstepped and hit the curb with his left ankle. States since the injury 12 days ago, he had noted worsening pain, redness, and swelling just above the left ankle. states at baseline the patient does not use a cane. However, due to pain he has used a cane to walk the last few days. Denied head injury or LOC. No other associated symptoms, complaints, or injuries reported. Related Data Home Medications ?Medication ?Instructions ?Recorded ?Confirmed alprazolam 0.5 mg tablet 0.5 mg PO QDAY PRN anxiety 02/20/24 01/04/25 carvedilol 25 mg tablet 25 mg PO Q12H 02/20/24 01/04/25 cyclobenzaprine 10 mg tablet 10 mg PO HS PRN muscle spasm 02/20/24 01/04/25 diltiazem HCl 120 mg capsule,24 120 mg PO QDAY 02/20/24 01/04/25 hr,extended release glipizide 5 mg tablet 5 mg PO BID 02/20/24 01/04/25 loratadine 10 mg tablet 10 mg PO QDAY 02/20/24 01/04/25 sacubitril 24 mg-valsartan 26 mg 1 tab PO BID 02/20/24 01/04/25 tablet (Entresto) sevelamer carbonate 2.4 gram oral 2.4 g PO TID 02/20/24 01/04/25 powder packet sodium polystyrene sulfonate 15 g PO QDAY 02/20/24 01/04/25 apixaban 2.5 mg tablet (Eliquis) 2.5 mg PO Q12H 12/08/24 01/04/25 calcium acetate(phosphat bind) 667 1,334 mg PO TIDWMEAL 12/08/24 01/04/25 mg capsule amiodarone 200 mg tablet 200 mg PO QDAY 12/14/24 01/04/25 vitamin B complex-vitamin C-folic 1 tab PO QDAY 12/14/24 01/04/25 acid 0.8 mg tablet (Dialyvite 800) vitamin B complex-vitamin C-folic 1 tab PO QDAY 12/14/24 01/04/25 acid 0.8 mg tablet (Nephro-Jj) Allergies Allergy/AdvReac Type Severity Reaction Status Date / Time No Known Allergies Allergy Verified 05/18/25 07:15 Review of Systems Review of Systems Systems Reviewed: All systems reviewed, normal except as documented Past Medical History Past Medical History CARDIAC: Positive Cardiac Disorders, Cardiac Arrhythmia, Atrial Fibrillation, Heart Murmur, Hypercholesterolemia and Hypertension RESPIRATORY: Positive Pneumonia GENITOURINARY: Positive Genitourinary Disorders, Renal Disease and Dialysis MUSCULOSKELETAL: Positive Musculoskeletal Disorders ENT: Positive Cataracts, Blind (blurry vision) and Deafness (LEFT HEARING IMPLANT) ENDOCRINE: Positive Endocrine Disorders and Diabetes Mellitus Type 2 HEMATOLOGIC: Positive Blood Disorders and Anemia PSYCHO/SOCIAL: Positive Depression and Anxiety OTHER HISTORY: Positive Hospitalization, Falls, Blood Transfusions, Chicken Pox, Measles and Mumps Family History FAMILY HISTORY: Negative Family Cardiac Disorders or Family Anesthesia Reaction Surgical History SURGICAL: Negative Cardiac Surgery, Coronary Stent, Pacemaker, Endocrine Surgery, Abdominal Surgery, Nephrectomy, Joint Replacement, Neurologic Surgery, Mastectomy or Vasectomy Social History SMOKING STATUS: Former smoker ED Exam Narrative Physical exam: GENERAL APPEARANCE: alert and oriented x 4, well-developed, well-nourished, no acute distress HEENT: Normocephalic, atraumatic; pupils equal, round, reactive to light; EOMI; mucous membranes pink, moist; oropharynx clear NECK: Supple LUNGS: CTABL; no wheezes, no rales, no rhonchi HEART: Regular rate, regular rhythm; normal S1, S2; no murmurs ABDOMEN: non distended; normal BS; soft, no tenderness, no guarding, no rebound; no masses, no organomegaly, no hernia BACK: no CVA tenderness EXTREMITIES: erythema to the left armas, no tenderness or increased warmth, fluctuant mass on the lateral aspect of the left leg again with erythema with tenderness or increased warmth NEUROLOGIC: awake; alert and oriented x4; cranial nerves II-XII grossly intact; no focal sensory or motor deficits PSYCHIATRIC: appropriate mood and affect SKIN: warm, dry, normal color; no rashes Course Quality Measures none Orders Category Date Time Status US venous doppler LE LT Stat Exams 05/18/25 07:40 Completed XR foot comp LT min 3V Stat Exams 05/18/25 07:40 Completed XR tibia fibula LT 2V Stat Exams 05/18/25 07:40 Completed CBC Stat Lab 05/18/25 08:12 Completed Comprehensive Metabolic Panel Stat Lab 05/18/25 08:12 Completed Partial Thromboplastin Time Stat Lab 05/18/25 08:12 Completed Prothrombin Time with INR Stat Lab 05/18/25 08:12 Completed Lidocaine 1% 20 ml [Xylocaine 1% 20 ML] Med 05/18/25 09:09 Discontinued 10 ml INFL X1 ONE Vital Signs Vital signs: Vital Signs Temperature 98 F 05/18/25 07:36 Pulse Rate 74 05/18/25 07:36 Respiratory Rate 18 05/18/25 07:36 Blood Pressure 124/68 05/18/25 07:36 Pulse Oximetry (%) 98 05/18/25 07:36 Oxygen Delivery Method Room Air 05/18/25 07:36 Pulse ox is 98% on room air which is adequate. PROCEDURES: Procedure Comment Procedure: Aspiration of suspected hematoma vs abscess Indication: Painful swelling of the leg with concern for hematoma vs abscess Consent: Informed consent was obtained. Preparation: The affected area of the leg was cleaned using sterile technique. Anesthesia: 4 cc of 1% lidocaine Procedure Details: A needle aspiration was attempted at the area of concern. A very small amount of blood was aspirated. No purulent material was obtained. Findings: Trace amount of blood, no pus or purulent drainage Complications: None Disposition: The patient tolerated the procedure well. No further immediate intervention was required. Fall MDM Narrative MDM Narrative:: Lacey Higgins am scribing for and in the presence of Dr. Kendrick. Patient data External records reviewed:: [facility] previous records (I reviewed admission from through 01/07/2025) Clinical information provided by:: patient Social determinants that could affect healthcare access:: none Patient has the following chronic illnesses:: Atrial fibrillation, hypertension, diabetes, ESRD on dialysis M/W/F, BPH, chronic anemia How is presenting disease/condition affected by chronic disease/condition?: exacerbated by Evaluation data The following diagnostics were reviewed and interpreted by me:: lab results Lab and/or radiology exams considered but not ordered:: None Interpretation Summary: Ordering Physician: Gregory Bailey NP, NP Date of Service: 05/18/25 Procedure(s): XR foot comp LT min 3V Accession Number(s): [id number] cc: Leo PICKARD)Gregory NP; Christiano Flores MD~ Examination: Foot, left, 3 views Technique: AP, oblique, lateral views foot, 3 views Date and time of exam: May 18, 2025, 0757 hours INDICATIONS: Patient fell today with injury to foot, foot pain. FINDINGS: Severe osteopenia Old deformity proximal phalanx first and second digits No acute fracture Soft tissue vascular calcification IMPRESSION: No acute fracture Given the severe osteopenia, recommend short-term follow-up foot films as clinically warranted Dictated By: Christiano Flores MD Signed By: <Electronically signed by Christiano Flores MD in OV> 05/18/25 0826 Ordering Physician: Gregory Bailey NP, NP Date of Service: 05/18/25 Procedure(s): XR tibia fibula LT 2V Accession Number(s): [id number] cc: Leo PICKARD),Gregory BLOUNT; Christiano Flores MD~ Examination: Tibia-Fibula, left , 2 views Technique: Tibia-fibula AP lateral 2 views Date and time of exam: May 18, 2025 0753 hours INDICATIONS: Patient fell today with injury to lower leg, lower leg pain. FINDINGS: No acute fracture Or dislocation. The soft tissue vascular calcification IMPRESSION: No acute fracture Dictated By: Christiano Flores MD Signed By: <Electronically signed by Christiano Flores MD in OV> 05/18/25 0824 Ordering Physician: Leo PICKARD),Gregory BLOUNT Date of Service: 05/18/25 Procedure(s): US venous doppler LE LT Accession Number(s): [id number] cc: Leo PICKARD),Gregory BLOUNT; Christiano Flores MD; Sandra Mendosa MD~ Examination: Duplex scan of the lower extremity, unilateral left complete Date and time of exam: May 18, 2025 0825 hours INDICATIONS: Patient fell 10 days ago with injury to the lower leg, lower leg swelling and pain Technique: Duplex scan of the extremity veins using B-mode/grayscale imaging and Doppler spectral analysis and color flow Attention is directed to internal echogenicity, compression and augmentation involving these veins, color flow assessment, spectral analysis Findings: Major deep venous structures in the extremity demonstrate normal course and caliber. There is no evidence of deep vein thrombosis. Normal color flow and spectral analysis Impression: Negative for DVT.. Dictated By: Christiano Flores MD Signed By: <Electronically signed by Christiano Flores MD in OV> 05/18/25 0913 Medications / Prescriptions Medications or Prescriptions considered but not ordered:: None Medication administrations:: Medication Administration History Discontinued Medications Lidocaine HCl (Lidocaine Hcl 1% 20 Ml Vial) 10 ml INFL X1 ONE Stop: 05/18/25 09:10 Last Admin: 05/18/25 09:20 Dose: 10 ml Documented By: VG See above Consultations Consultation(s) initiated? (list below): No Diagnosis Fall Differential Diagnosis: other (ankle fracture, abscess, cellulitis ) Most likely diagnosis given after review of the tests above:: Hematoma Admission Indicated Admission indicated?: not indicated Admission Request Was there a request for admission?: No Disposition Plan Disposition Plan: Discharge Discharge Attestation Discharge Attestation: The patient and all family members were given an opportunity to ask questions and understood the discharge instructions. Discharge instructions specifically effects, indications for sooner follow up or return to the emergency department, and the expected course of current diagnosis. Patient condition: Stable Discharge Plan Plan Patient Disposition: HOME (Self Care) Prescriptions/Referrals Prescriptions/Med Rec: No Action carvedilol 25 mg tablet 25 mg PO Q12H Patient Comments: TOME 1 TABLETA POR V A ORAL DOS VECES AL D A alprazolam 0.5 mg tablet 0.5 mg PO QDAY PRN (Reason: anxiety) Patient Comments: TOME GREG TABLETA TODOS LOS D CUANDO SEA NECESARIO diltiazem HCl 120 mg capsule,extended release 24 hr 120 mg PO QDAY Patient Comments: TOME 1 C PSULA POR V A ORAL TODOS LOS D sodium polystyrene sulfonate Powder 15 g PO QDAY Patient Comments: MESCLE 15 GM EN LIQUIDO Y TOME TODOS LOS D loratadine 10 mg tablet 10 mg PO QDAY Patient Comments: TOME GREG TABLETA POR V A ORAL TODOS LOS D glipizide 5 mg tablet 5 mg PO BID Patient Comments: TOME GREG TABLETA POR V A ORAL DOS VECES AL D A sevelamer carbonate 2.4 gram powder in packet 2.4 g PO TID Patient Comments: MEZCLAR 1 PAQUETE Y TOME SEG N LO INDICADO MISAEL VECES AL D A Entresto 24-26 mg tablet 1 tab PO BID Patient Comments: TOME 1 TABLETA POR V A ORAL DOS VECES AL D A cyclobenzaprine 10 mg tablet 10 mg PO HS PRN (Reason: muscle spasm) Patient Comments: TOME 1 TABLETA POR V A ORAL TODOS LOS D AL ACOSTARSE CUANDO SEA NECESARIO Eliquis 2.5 mg tablet 2.5 mg PO Q12H calcium acetate(phosphat bind) 667 mg capsule 1,334 mg PO TIDWMEAL Patient Comments: TOME 2 CAPSULAS POR VIA ORAL MISAEL VECES AL SOHAIL CON ALIMENTO amiodarone 200 mg tablet 200 mg PO QDAY Nephro-Jj 0.8 mg tablet 1 tab PO QDAY Dialyvite 800 0.8 mg tablet 1 tab PO QDAY Referrals: Sandra Mendosa MD [Primary Care Provider] - In 1 week Problem List Clinical Impression: Hematoma and contusion Patient/Caregiver Discharge Instructions Education Materials: ED Hematoma Print Language: Croatian Stand Alone Forms: Elizabeth Award Info., Patient Portal Info Letter
[2025-05-18] MEDS: LIDOCAINE HCL 1% 20 ML VIAL 10 ML INFL (09:20)
[2025-05-18 10:06] VITALS: BP 147/92; PULSE 68; RESP 18; TEMP 36.4; O2SAT 99
[2025-05-18 10:14] VITALS: BP 147/92; PULSE 71; RESP 18; TEMP 36.4; O2SAT 98
== END 2025-05-18 10:15 | disposition home or self-care (01) ==
PROVIDERS: Nurse Practitioner Primary Care; Emergency Provider Emergency Medicine; PCP Internal Medicine
DX: S90.32XA Contusion of left foot, initial encounter (principal); S80.12XA Contusion of left lower leg, initial encounter; W17.89XA Other fall from one level to another, initial encounter; Y92.538 Other ambulatory health services establishments as the place of occurrence of the external cause
CPT/HCPCS: 36415; 73590; 73630; 80053; 85025; 85610; 85730; 93971; 99283; J3490

== ENCOUNTER → 2025-06-17 | Outpatient (CLI) | payer MEDICARE, MEDICAID, SELFPAY ==
[2025-06-17 13:19] LABS: Basophils # (Auto) 0.1 Thou/mm3 (0.0-0.2); Basophils % (Auto) 1 % (0-2.5); Eosinophils # (Auto) 0.2 Thou/mm3 (0.0-0.5); Eosinophils % (Auto) 3 % (0-10); Hematocrit 35.0 % (41.0-53.0); Hemoglobin 11.4 g/dL (13.5-16.0); Immature Granulocytes Auto 0.03 Thou/mm3 (0.00-0.00); Lymphocytes # (Auto) 0.6 Thou/mm3 (1.0-4.8); Lymphocytes % (Auto) 9 % (10-50); Mean Corpuscular HGB Conc 32.6 g/dl (31.0-37.0); Mean Corpuscular Hemoglobin 35.6 pg (25.0-35.0); Mean Corpuscular Volume 109 fL (80-100); Monocytes # (Auto) 0.7 Thou/mm3 (0.0-0.8); Monocytes % (Auto) 11 % (0-12); Neutrophils # (Auto) 4.9 Thou/mm3 (1.8-7.7); Neutrophils % (Auto) 76 % (37-80); Nucleated Red Blood Cell # 0.00 Thou/mm3 (0.00-0.00); Nucleated Red Blood Cell % 0 /100 WBC (0); Platelet Count 129 Thou/mm3 (140-440); RDW Standard Deviation 60.2 fL (35.1-43.9); Red Blood Count 3.20 Miln/mm3 (4.50-5.90); White Blood Count 6.4 Thou/mm3 (3.8-10.6)
[2025-06-17 13:48] LABS: Alanine Aminotransferase 28 U/L (10-49); Albumin, Serum 4.0 gm/dL (3.4-4.8); Albumin/Globulin Ratio 1.4 (1.2-2.2); Alkaline Phosphatase 222 U/L (46-116); Anion Gap 12 (7-16); Aspartate Amino Transferase 27 U/L (0-34); BUN/Creatinine Ratio 5 Ratio (12-20); Bilirubin,Total 0.4 mg/dL (0.3-1.2); Blood Urea Nitrogen 31 mg/dL (9-23); Calcium 9.9 mg/dL (8.3-10.6); Calcium (Corrected) 9.9 mg/dL (8.5-10.1); Carbon Dioxide 32.4 mMol/L (20.0-31.0); Chloride 91 mMol/L (98-107); Creatinine (Component) 5.8 mg/dL (0.6-1.3); Globulin 2.8 gm/dL (2.3-3.5); Glucose 242 mg/dL (74-106); Osmolality,Calculated 284 (275-295); Potassium 4.4 mMol/L (3.4-5.1); Sodium 135 mMol/L (136-145); Total Protein 6.8 gm/dL (5.7-8.2); eGFR 10 See Note
== END | disposition home or self-care (01) ==
PROVIDERS: PCP Internal Medicine; Referring Provider Nurse Practitioner Family; Visit Provider Nurse Practitioner Family
DX: D64.9 Anemia, unspecified (principal)
CPT/HCPCS: 36415; 80053; 85025

== ENCOUNTER 2025-06-20 05:40 | Emergency (ER) | payer MEDICARE, MEDICAID, SELFPAY ==
[2025-06-20 05:48] VITALS: BP 147/72; PULSE 67; RESP 18; TEMP 36.7; O2SAT 98; BMI 14.2
--- NOTE | 2025-06-20 06:02 | XR_ITS ---
Examination: Knee, right , 3 views Technique: Knee AP, lateral, oblique 3 views Date and time of exam: June 20, 2025, 0605 hrs. Indications: Patient fell today with injury to the knee, knee pain. Findings: Acute fractures lateral tibial plateau Significant blood in the joint space Moderate to advanced tricompartment osteoarthritis. Severe osteopenia. Impression: Acute fractures lateral tibial plateau without significant displacement
--- NOTE | 2025-06-20 06:02 | XR_ITS ---
Examination: Foot, right, 3 views Technique: AP, oblique, lateral views foot, 3 views Date and time of exam: June 20, 2025, 1812 hrs. Indications: Patient fell today with injury to right foot, right foot pain Findings: Fracture traverses the midportion proximal phalanx fourth digit This appears old, clinical correlation advised Severe osteopenia Soft tissue vascular calcification. Soft tissue swelling dorsum of the foot Impression: Old appearing fracture midportion proximal phalanx fourth digit
--- NOTE | 2025-06-20 06:02 | XR_ITS ---
Examination: CT brain head without contrast. 2-D sagittal coronal reconstructions Date and time of exam:June 19 1000 2025, 0626 hrs. Indications: Patient fell today with injury to the head, head pain CTDI: vol (mGy):50.7 DLP: (mGycm): 1060 Technique: Multiple CT axial sections of the brain have been obtained, 5 mm slice thickness. Contrast has not been administered. 2-D sagittal, coronal reconstructions have been obtained Low dose protocols were performed. One or more of the following dose reduction techniques were used; automated exposure control, adjustment of the mA and/or KV according to patient size, use of iterative reconstruction technique. Findings: No significant ventricular enlargement. Intra-axial or extra-axial hemorrhage density is not seen. No mass effect or midline shift Basal cisterns are not remarkable. Fourth ventricle is midline. Cranial vault intact. Impression: Negative for acute hemorrhage, mass effect or midline shift
--- NOTE | 2025-06-20 06:03 | PD.EDRME ---
Rapid Medical Screening Exam E Arrival date/time: 06/20/25 05:40 This is a case of 64-year-old male with history of ESRD came into the emergency room due to right knee pain and right great toe pain patient 1 hour prior to arrival in the emergency room trip and fall at home and hit his head on the floor patient also twisted his right knee and right great toe sustaining pain and swelling no loss of consciousness Chief Complaint: Ankle/Foot Injury Time Seen by Provider: 06/20/25 06:02
[2025-06-20] MEDS: ONDANSETRON INJ 2 MG/ML INJ 2 ML 4 MG IM (07:34)
[2025-06-20] MEDS: MORPHINE SULF INJ 10 MG/ML VIAL 4 MG IM (07:35)
--- NOTE | 2025-06-20 07:57 | PD.EDANKLE ---
Lower Extremity Injury RME/HPI General Chief Complaint: Ankle/Foot Injury Stated Complaint: FALL INJURY TO R GREAT TOE Time Seen by Provider: 06/20/25 06:02 Arrival date/time: 06/20/25 05:40 Limitations: no limitations RME / HPI RME / HPI Narrative: 06/20/25 05:40 This is a case of 64-year-old male with history of ESRD came into the emergency room due to right knee pain and right great toe pain patient 1 hour prior to arrival in the emergency room trip and fall at home and hit his head on the floor patient also twisted his right knee and right great toe sustaining pain and swelling no loss of consciousness DR. ECHEVERRIA MAIN ED EVALUATION: 64 year old male with history of atrial fibrillation, hypertension, diabetes, ESRD on dialysis M/W/F, BPH, chronic anemia presents to the ED for evaluation of right knee and right great toe pain following a ground level fall that occurred yesterday. States he was walking inside of his home when he lost his balance and fell. Reportedly since the fall he is having difficulty ambulating due to right leg pain. No other injuries reported. Denied any head injury of LOC yesterday. Denies pain to his neck, chest, back, abdomen or upper extremities. Related Data Home Medications ?Medication ?Instructions ?Recorded ?Confirmed alprazolam 0.5 mg tablet 0.5 mg PO QDAY PRN anxiety 02/20/24 01/04/25 carvedilol 25 mg tablet 25 mg PO Q12H 02/20/24 01/04/25 cyclobenzaprine 10 mg tablet 10 mg PO HS PRN muscle spasm 02/20/24 01/04/25 diltiazem HCl 120 mg capsule,24 120 mg PO QDAY 02/20/24 01/04/25 hr,extended release glipizide 5 mg tablet 5 mg PO BID 02/20/24 01/04/25 loratadine 10 mg tablet 10 mg PO QDAY 02/20/24 01/04/25 sacubitril 24 mg-valsartan 26 mg 1 tab PO BID 02/20/24 01/04/25 tablet (Entresto) sevelamer carbonate 2.4 gram oral 2.4 g PO TID 02/20/24 01/04/25 powder packet sodium polystyrene sulfonate 15 15 g PO QDAY 02/20/24 01/04/25 gram oral powder apixaban 2.5 mg tablet (Eliquis) 2.5 mg PO Q12H 12/08/24 01/04/25 calcium acetate(phosphat bind) 667 1,334 mg PO TIDWMEAL 12/08/24 01/04/25 mg capsule amiodarone 200 mg tablet 200 mg PO QDAY 12/14/24 01/04/25 vitamin B complex-vitamin C-folic 1 tab PO QDAY 12/14/24 01/04/25 acid 0.8 mg tablet (Dialyvite 800) vitamin B complex-vitamin C-folic 1 tab PO QDAY 12/14/24 01/04/25 acid 0.8 mg tablet (Nephro-Jj) Previous Rx's ?Medication ?Instructions ?Recorded hydrocodone 5 mg-acetaminophen 325 1 tab PO BID PRN pain #14 tabs 06/20/25 mg tablet Allergies Allergy/AdvReac Type Severity Reaction Status Date / Time No Known Allergies Allergy Verified 06/20/25 05:55 Review of Systems Review of Systems Systems Reviewed: All systems reviewed, normal except as documented Past Medical History Past Medical History CARDIAC: Positive Cardiac Disorders, Cardiac Arrhythmia, Atrial Fibrillation, Heart Murmur, Hypercholesterolemia and Hypertension RESPIRATORY: Positive Pneumonia GENITOURINARY: Positive Genitourinary Disorders, Renal Disease and Dialysis MUSCULOSKELETAL: Positive Musculoskeletal Disorders ENT: Positive Cataracts, Blind and Deafness ENDOCRINE: Positive Endocrine Disorders and Diabetes Mellitus Type 2 HEMATOLOGIC: Positive Blood Disorders and Anemia PSYCHO/SOCIAL: Positive Depression and Anxiety OTHER HISTORY: Positive Hospitalization, Falls, Blood Transfusions, Chicken Pox, Measles and Mumps Social History SMOKING STATUS: Never smoker ED Exam General Limitations: Present no limitations General appearance: Present alert and other (appears uncomfortable ) Head Head exam: Present atraumatic and normocephalic Eye Eye exam: Present normal appearance, PERRL and EOMI ENT ENT exam: Present normal exam, normal oropharynx and mucous membranes moist Neck Neck exam: Present normal inspection, full ROM and trachea midline Chest Chest inspection: Present normal inspection and symmetric chest wall rise Respiratory Respiratory exam: Present normal lung sounds bilaterally Cardiovascular Cardiovascular exam: Present regular rate, normal rhythm and normal heart sounds Abdominal Exam Abdominal exam: Present soft and normal bowel sounds Extremities Exam Extremities exam: Present other (mild tenderness to the right tibial plateu anteriorly and laterally, minimal swelling, rigth fourth phalynx looks like there is a callous there, no acute tenderness, peripheral pulses normal, sensory intact) Back Exam Back exam: Present normal inspection Neurological Exam Neurological exam: Present alert, oriented X3 and CN II-XII intact Psychiatric Psychiatric exam: Present normal affect and normal mood Skin Skin exam: Present warm, dry, intact and normal color Course Quality Measures none Orders Category Date Time Status Splint / Immobilizer STAT Care 06/20/25 06:[address] head/brain wo con Stat Exams 06/20/25 06:02 Completed XR foot comp RT min 3V Stat Exams 06/20/25 06:02 Completed XR knee RT 3V Stat Exams 06/20/25 06:02 Completed Morphine Inj Med 06/20/25 06:54 Discontinued 4 mg IM X1 ONE Ondansetron Inj [Zofran Inj] Med 06/20/25 06:54 Discontinued 4 mg IM X1 ONE Vital Signs Vital signs: Vital Signs Temperature 98.1 F 06/20/25 05:48 Pulse Rate 67 06/20/25 05:48 Respiratory Rate 18 06/20/25 05:48 Blood Pressure 147/72 H 06/20/25 05:48 Pulse Oximetry (%) 98 06/20/25 05:48 Oxygen Delivery Method Room Air 06/20/25 05:48 Pulse ox is 98% on room air which is adequate. Extremity Injury, Lower MDM Narrative MDM Narrative:: Lacey Higgins am scribing for and in the presence of Dr. Echeverria. The patient has a nondisplaced fracture of the right tibial plateau. Additionally, there is an old fracture of the right 4th proximal phalanx. A long leg splint was applied, and the patient was provided with crutches. Imaging was performed, and pain medication will be prescribed. Please call Dr. Mendosa for an orthopedic referral or contact Dr. Hernandez's office to schedule an appointment. Alternatively, the patient may follow up at [facility]. Notified by RN that the patient was provided crutches however too weak to use. The patient requires a wheelchair with leg extension due to a tibial plateau fracture. Made aware by social service coordinator that [facility] will be able to deliver a wheelchair to patients home Saturday. Patient data External records reviewed:: [facility] previous records (I reviewed ED visit on 05/18/2025 ) Clinical information provided by:: patient Social determinants that could affect healthcare access:: none Patient has the following chronic illnesses:: atrial fibrillation, hypertension, diabetes, ESRD on dialysis M/W/F, BPH, chronic anemia How is presenting disease/condition affected by chronic disease/condition?: exacerbated by Evaluation data The following diagnostics were reviewed and interpreted by me:: lab results and radiology exam(s) Lab and/or radiology exams considered but not ordered:: None Interpretation Summary: Ordering Physician: Laurel Sue Date of Service: 06/20/25 Procedure(s): XR foot comp RT min 3V Accession Number(s): [id number] cc: Christiano Flores MD; Laurel Sue; Sandra Mendosa MD~ Examination: Foot, right, 3 views Technique: AP, oblique, lateral views foot, 3 views Date and time of exam: June 20, 2025, 1812 hrs. Indications: Patient fell today with injury to right foot, right foot pain Findings: Fracture traverses the midportion proximal phalanx fourth digit This appears old, clinical correlation advised Severe osteopenia Soft tissue vascular calcification. Soft tissue swelling dorsum of the foot Impression: Old appearing fracture midportion proximal phalanx fourth digit Dictated By: Christiano Flores MD Signed By: <Electronically signed by Christiano Flores MD in OV> 06/20/25 0633 Ordering Physician: Laurel Sue Date of Service: 06/20/25 Procedure(s): CT head/brain wo con Accession Number(s): [id number] cc: Christiano Flores MD; Laurel Sue; Sandra Mendosa MD~ Examination: CT brain head without contrast. 2-D sagittal coronal reconstructions Date and time of exam:June 19 10002024, 06 hrs. Indications: Patient fell today with injury to the head, head pain CTDI: vol (mGy):50.7 DLP: (mGycm): 1060 Technique: Multiple CT axial sections of the brain have been obtained, 5 mm slice thickness. Contrast has not been administered. 2-D sagittal, coronal reconstructions have been obtained Low dose protocols were performed. One or more of the following dose reduction techniques were used; automated exposure control, adjustment of the mA and/or KV according to patient size, use of iterative reconstruction technique. Findings: No significant ventricular enlargement. Intra-axial or extra-axial hemorrhage density is not seen. No mass effect or midline shift Basal cisterns are not remarkable. Fourth ventricle is midline. Cranial vault intact. Impression: Negative for acute hemorrhage, mass effect or midline shift Dictated By: Christiano Flores MD Signed By: <Electronically signed by Christiano Flores MD in OV> 06/20/25 0719 Ordering Physician: Laurel Sue Date of Service: 06/20/25 Procedure(s): XR knee RT 3V Accession Number(s): [id number] cc: Christiano Flores MD; Laurel Sue~ Examination: Knee, right , 3 views Technique: Knee AP, lateral, oblique 3 views Date and time of exam: June 20, 2025, 0605 hrs. Indications: Patient fell today with injury to the knee, knee pain. Findings: Acute fractures lateral tibial plateau Significant blood in the joint space Moderate to advanced tricompartment osteoarthritis. Severe osteopenia. Impression: Acute fractures lateral tibial plateau without significant displacement Dictated By: Christiano Flores MD Signed By: <Electronically signed by Christiano Flores MD in OV> 06/20/25 0631 Medications / Prescriptions Medications or Prescriptions considered but not ordered:: None Medication administrations:: Medication Administration History Discontinued Medications Morphine Sulfate (Morphine Sulf Inj 10 Mg/Ml Vial) 4 mg IM X1 ONE Stop: 06/20/25 06:55 Last Admin: 06/20/25 07:35 Dose: 4 mg Documented By: DB Ondansetron HCl (Ondansetron Inj 2 Mg/Ml Inj 2 Ml) 4 mg IM X1 ONE; Protocol Stop: 06/20/25 06:55 Last Admin: 06/20/25 07:34 Dose: 4 mg Documented By: WILL Comments: Medications given IM See above Consultations Consultation(s) initiated? (list below): No Diagnosis Extremity Injury, Lower Differential Diagnosis: ankle sprain and strain, acute internal derangement of knee, fracture of toe and ankle fracture Most likely diagnosis given after review of the tests above:: Fracture of tibial plateau Admission Indicated Admission indicated?: not indicated Admission Request Was there a request for admission?: No Disposition Plan Disposition Plan: Discharge Discharge Attestation Discharge Attestation: The patient and all family members were given an opportunity to ask questions and understood the discharge instructions. Discharge instructions specifically effects, indications for sooner follow up or return to the emergency department, and the expected course of current diagnosis. Patient condition: Stable Discharge Plan Plan Patient Disposition: HOME (Self Care) Prescriptions/Referrals Prescriptions/Med Rec: New hydrocodone-acetaminophen 5-325 mg tablet 1 tab PO BID MDD 2 PRN (Reason: pain) Qty: 14 0RF No Action carvedilol 25 mg tablet 25 mg PO Q12H Patient Comments: TOME 1 TABLETA POR V A ORAL DOS VECES AL D A alprazolam 0.5 mg tablet 0.5 mg PO QDAY PRN (Reason: anxiety) Patient Comments: TOME GREG TABLETA TODOS LOS D CUANDO SEA NECESARIO diltiazem HCl 120 mg capsule,extended release 24 hr 120 mg PO QDAY Patient Comments: TOME 1 C PSULA POR V A ORAL TODOS LOS D sodium polystyrene sulfonate 15 gram Powder 15 g PO QDAY Patient Comments: MESCLE 15 GM EN LIQUIDO Y TOME TODOS LOS D loratadine 10 mg tablet 10 mg PO QDAY Patient Comments: TOME GREG TABLETA POR V A ORAL TODOS LOS D glipizide 5 mg tablet 5 mg PO BID Patient Comments: TOME GREG TABLETA POR V A ORAL DOS VECES AL D A sevelamer carbonate 2.4 gram powder in packet 2.4 g PO TID Patient Comments: MEZCLAR 1 PAQUETE Y TOME SEG N LO INDICADO MISAEL VECES AL D A Entresto 24-26 mg tablet 1 tab PO BID Patient Comments: TOME 1 TABLETA POR V A ORAL DOS VECES AL D A cyclobenzaprine 10 mg tablet 10 mg PO HS PRN (Reason: muscle spasm) Patient Comments: TOME 1 TABLETA POR V A ORAL TODOS LOS D AL ACOSTARSE CUANDO SEA NECESARIO Eliquis 2.5 mg tablet 2.5 mg PO Q12H calcium acetate(phosphat bind) 667 mg capsule 1,334 mg PO TIDWMEAL Patient Comments: TOME 2 CAPSULAS POR VIA ORAL MISAEL VECES AL SOHAIL CON ALIMENTO amiodarone 200 mg tablet 200 mg PO QDAY Nephro-Jj 0.8 mg tablet 1 tab PO QDAY Dialyvite 800 0.8 mg tablet 1 tab PO QDAY Referrals: Sandra Mendosa MD [Primary Care Provider] - In 1 week Problem List Clinical Impression: Fracture of tibial plateau, Foot fracture, right, Closed head injury Patient/Caregiver Discharge Instructions Education Materials: ED Fracture, Foot, ED Head Injury (Adult), ED Fracture, Knee Print Language: Emirati Stand Alone Forms: Elizabeth Award Info., Patient Portal Info Letter
--- NOTE | 2025-06-20 08:04 | PC.NURSE ---
Notified Dr. Guajardo that patient is unable to safely use crutches due to Pt being unsteady and weak. Per Dr. guajardo a wheelchair with a leg extension. Notified SS and will to obtain a wheelchair at this time.
[2025-06-20 08:09] VITALS: BP 150/93; PULSE 80; RESP 16; TEMP 36.4; O2SAT 95
--- NOTE | 2025-06-20 08:16 | PC.CC ---
Addendum entered by Jazzmine Lan 06/22/25 09:07: LATE NOTE: 0907-Patients diagnosis creates mobility limitations that significantly impairs ability to participate in the patient?s activities of daily living either in their entirety, or in a reasonable time frame in the home and the patient?s mobility limitations cannot be sufficiently resolved with an appropriately fitted cane or walker. Also the use of a manual wheelchair will sufficiently improve patient?s ability to participate in the activities of daily living in the home and the patient is willing to use the wheelchair that is provided in the home. The patient has some one in the home that is available, willing and able to provide assistance with the wheelchair. 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 ASW arranged transportation via [employer] [id number]. However, ASW cancelled the transport due to the family picking up the pt. ASW contacted dispatch and [facility] to cancel the transportation. Addendum entered by Jazzmine Lan 06/20/25 09:41: [facility] accepted and can fill the order but cannot deliver the wheel chair till Saturday. Addendum entered by Jazzmine Lan 06/20/25 09:19: 0918-ASW uploaded the DME request to [employer]. As of this writing, there is no accepting DME company yet. Original Note: 0816-Assigned RN Gregory, informed ASW that pt is unable to safety use crutches due to Pt being unsteady and weak. Per Dr. Bernstein a wheelchair with a leg extension is needed for a safe discharge for the pt. Pt will require a wheel chair delivered to the home as pt will need the wheel chair to ambulate. ASW will upload necessary documentation to [employer] for home delivery.
[2025-06-20 10:08] VITALS: BP 133/89; PULSE 84; RESP 18; TEMP 36.3; O2SAT 98
[2025-06-20 10:30] VITALS: BP 133/89; PULSE 82; RESP 16; TEMP 36.6; O2SAT 95
--- NOTE | 2025-06-22 09:29 | PC.CC ---
0929-ELY received a call from Arleen from [facility] stating the Medicare verbage needed to be in the note. ELY submitted the corrected Medi-care verbage and send via [employer] and fax to Arleen. ELY contacted Arleen and she reported the information was received and is good to go.
== END 2025-06-20 10:30 | disposition home or self-care (01) ==
PROVIDERS: Emergency Provider Family Medicine; PCP Internal Medicine
DX: S82.144A Nondisplaced bicondylar fracture of right tibia, initial encounter for closed fracture (principal); S92.511A Displaced fracture of proximal phalanx of right lesser toe(s), initial encounter for closed fracture; S09.90XA Unspecified injury of head, initial encounter; W01.0XXA Fall on same level from slipping, tripping and stumbling without subsequent striking against object, initial encounter; X50.1XXA Overexertion from prolonged static or awkward postures, initial encounter
CPT/HCPCS: 29505; 70450; 73562; 73630; 96372; 99284; J2270; J2405

== ENCOUNTER 2025-06-24 15:02 | Outpatient (RCR) | payer MEDICARE, MEDICAID, SELFPAY | END 2025-07-20 23:59 | disposition home or self-care (01) | LOC: SCTC 15:02 | PROVIDERS: PCP Internal Medicine; Referring Provider Internal Medicine; Visit Provider Nurse Practitioner Family | DX: I12.0 Hypertensive chronic kidney disease with stage 5 chronic kidney disease or end stage renal disease (principal); E11.22 Type 2 diabetes mellitus with diabetic chronic kidney disease; N18.6 End stage renal disease; Z79.84 Long term (current) use of oral hypoglycemic drugs; Z99.2 Dependence on renal dialysis; D63.1 Anemia in chronic kidney disease; N28.1 Cyst of kidney, acquired | CPT/HCPCS: 99212; G0463 ==

== ENCOUNTER 2025-06-29 08:15 | Outpatient (AMB) | payer MEDICARE, MEDICAID, SELFPAY ==
--- NOTE | 2025-06-29 08:32 | ORTHONT_ITS ---
Vital signs 06/29/25 10:06 Height 1.68 m Height Method Stated Weight 81.193 kg Weight Measurement Method Estimated by Patient BMI 28.8 BP 189/81 H Blood Pressure Source Automatic Cuff Blood Pressure Location Left Upper Arm Position Sitting Respiration 18 Pulse 84 Pulse Source Monitor Temp 97.9 F Temp Source Temporal Artery Scan Pulse Oximetry (%) 96 Oxygen Delivery Method Room Air Med/Allergies Allergies & Medications Allergies No Known Allergies Allergy (Verified 06/29/25 10:07) Medication Reconciliation alprazolam 0.5 mg tablet 0.5 mg PO QDAY PRN anxiety 02/20/24 [History Confirmed 06/29/25] carvedilol 25 mg tablet 25 mg PO Q12H 02/20/24 [History Confirmed 06/29/25] cyclobenzaprine 10 mg tablet 10 mg PO HS PRN muscle spasm 02/20/24 [History Confirmed 06/29/25] diltiazem HCl 120 mg capsule,24 hr,extended release 120 mg PO QDAY 02/20/24 [History Confirmed 06/29/25] glipizide 5 mg tablet 5 mg PO BID 02/20/24 [History Confirmed 06/29/25] loratadine 10 mg tablet 10 mg PO QDAY 02/20/24 [History Confirmed 06/29/25] sacubitril 24 mg-valsartan 26 mg tablet (Entresto) 1 tab PO BID 02/20/24 [History Confirmed 06/29/25] sevelamer carbonate 2.4 gram oral powder packet 2.4 g PO TID 02/20/24 [History Confirmed 06/29/25] sodium polystyrene sulfonate 15 gram oral powder 15 g PO QDAY 02/20/24 [History Confirmed 06/29/25] apixaban 2.5 mg tablet (Eliquis) 2.5 mg PO Q12H 12/08/24 [History Confirmed 06/29/25] calcium acetate(phosphat bind) 667 mg capsule 1,334 mg PO TIDWMEAL 12/08/24 [History Confirmed 06/29/25] amiodarone 200 mg tablet 200 mg PO QDAY 12/14/24 [History Confirmed 06/29/25] vitamin B complex-vitamin C-folic acid 0.8 mg tablet (Dialyvite 800) 1 tab PO QDAY 12/14/24 [History Confirmed 06/29/25] vitamin B complex-vitamin C-folic acid 0.8 mg tablet (Nephro-Jj) 1 tab PO QDAY 12/14/24 [History Confirmed 06/29/25] hydrocodone 5 mg-acetaminophen 325 mg tablet 1 tab PO BID PRN pain #14 tabs 06/20/25 [Rx Confirmed 06/29/25] Exam Exam Patient is in no acute distress and is cooperative with the examination today. Breathing is nonlabored. Patient has a normal mood and affect. The patient has a gait that is nonantalgic Bilateral extremities were evaluated and demonstrates sensation intact to light touch. Palpable pedal pulses are present. No significant edema is present. Bilateral hips were examined. The patient has no pain with log roll of the hips. Internal rotation to 30 degrees and external rotation to 30 degrees is painless. Negative FADIR. Left knee was examined today. The left knee is in reasonable alignment. Range of motion from 0-120 degrees. Knee is stable to varus and valgus as well as AP translation with <5mm. Patient has a negative McMurrays. There is no pain with patellofemoral compression and no crepitus noted. The knee is nontender to palpation. The right knee was also examined. Right knee is tender to palpation laterally. Range of motion is limited secondary to pain X-rays demonstrate a nondisplaced lateral tibial plateau fracture. To be honest is very difficult to visualize as it is nondisplaced. I will order a CT scan Assessment and Plan Problem List (1) Closed fracture of lateral portion of tibial plateau: Status: Acute Plan: Patient is a 64-year-old male with medical comorbidities including dialysis is not an operative candidate at he supposedly has a lateral tibial plateau fracture according to x-ray. I cannot visualize this on the x-ray read. I will order a CT scan. It is nondisplaced and we will likely treat it nonoperatively as he is nonambulatory currently. We will see him back after his CT scan Advanced Care Planning Discussion Advance care planning discussed with:: patient Office Procedures GNS Level of Care Nursing/Assessment Patient Status: Initial/New Patient Nursing Assessment/Reassesment: Medication Reconciliation, Orthostatic Vitals, Update PMH in EMR and Vital Signs Coordination of Care: Complex Care and Chronic Disease 1-5, Education Complex Pt/Fam, Consent,records obtained, informed consent, Lab and Imaging orders, Results/Orders obtained and Staff clarify orders Special Needs: Language special needs New Patient Charge New Patient Point Assignment: 1119 New Patient Point Charge: WARRANTY MANAGER Level 4 ([id number]) MA Intake Visit Data Collection New Patient or Established: New Patient (never been to [facility]) Reason for Visit:: FRACTURE SHAFT RIGHT TIBIA Seen by Clinical Staff ONLY (RN/MA): No Mountain Services Manager Required: Yes PCP or OBGYN visit in last 3 months: Yes Hx Now: No Do You Feel Safe at Home: Yes Authorities Contacted: N/A Questionairres Past Medical History Past Medical History Have you ever been diagnosed with any of the following: Neurological Problems Seizures: No Epilepsy: No Cardiology Problems Cardiac Arrhythmia: Yes Atrial Fibrillation: Yes Angina: No Heart Murmur: Yes Hypercholesterolemia: Yes Congestive Heart Failure: No Edema: No Hypertension: Yes Respiratory Problems Chronic Obstructive Pulmonary Disease (COPD): No Pneumonia: Yes Sleep Apnea: No Stomache/Intestinal Problems Hepatitis: No Genital/Urinary Problems Renal Disease: Yes Kidney Stones: No Dialysis: Yes Musculoskeletal Problems Arthritis: No Head,Eye,Nose,Throat Problems Cataracts: Yes Blind: Yes Deafness: Yes Endocrine Problems Diabetes Mellitus Type 1: No Diabetes Mellitus Type 2: Yes Blood Problems Anemia: Yes Psychologic Problems Depression: Yes Anxiety: Yes Post Traumatic Stress Disorder: No Other Problems Hospitalization: Yes Down Syndrome: No Developmental Delay: No Shingles: No Falls: Yes Blood Transfusions: Yes Blood Transfusion Reaction: No Anesthesia Reactions: No Organ Transplant: No MRSA: No VRSA: No Chicken Pox: Yes Measles: Yes Mumps: Yes Cancer: No Surgical History Pacemaker: No Subjective Visit Visit for: new patient and other (specify) (FRACTURED TIBIA) Immunization / Flu Flu Vaccine in the Last 12 Months: Yes Flu Vaccine Exclusion Criteria: Already Received History of Present Illness Chief complaint: Right knee pain Patient is a 64-year-old male with a lateral tibial plateau fracture after a fall 2 weeks ago. He is very sick and is on dialysis. He is pretty much wheelchair-bound and does stand for transfers. He only leaves the house when he gets dialysis. He was placed in a short leg splint but does not spare the knee joint. He has not been walking on it Personal History Red flag PMH: none BMI Counceling provided: Yes Pain Pain level (0-10): 4 Pain quality: dull Ambulatory data Ambulatory device: other (specify) (WHEELCHAIR) Treatments Number of previous injections: 0 Improvement with previous injections: No Number of Physical Therapy sessions: 0 Improvement with PT: No Improvement with NSAIDS: no Review of Systems Review of Systems: All systems negative unless otherwise noted in HPI.
[2025-06-29 10:06] VITALS: BP 189/81; PULSE 84; RESP 18; TEMP 36.6; O2SAT 96; BMI 28.8
== END 2025-06-29 08:50 | disposition home or self-care (01) ==
LOC: HODSRG 08:15
PROVIDERS: PCP Internal Medicine; Referring Provider Internal Medicine; Supervising Provider Orthopaedic Surgery Adult Reconstructive Orthopaedic Surgery; Visit Provider Orthopaedic Surgery Adult Reconstructive Orthopaedic Surgery
DX: S82.143A Displaced bicondylar fracture of unspecified tibia, initial encounter for closed fracture (principal); W19.XXXA Unspecified fall, initial encounter; Z99.3 Dependence on wheelchair; Z99.2 Dependence on renal dialysis; I10 Essential (primary) hypertension; E78.00 Pure hypercholesterolemia, unspecified; I48.91 Unspecified atrial fibrillation; E11.9 Type 2 diabetes mellitus without complications; N28.9 Disorder of kidney and ureter, unspecified
CPT/HCPCS: 99204; G0463

== ENCOUNTER → 2025-07-07 | Outpatient (CLI) | payer MEDICARE, MEDICAID, SELFPAY ==
--- NOTE | 2025-07-07 13:30 | XR_ITS ---
Examination: CT right knee, without contrast. 2-D sagittal reconstructions. 2-D coronal reconstructions. 3-D reconstructions. Date and time of exam:July 07, 2025 at 1356 hours INDICATIONS: Patient fell 3 weeks ago, acute fractures lateral tibial plateau on plain films June 20, 2025 CTDI: vol (mGy):7.98 DLP: (mGycm):236 Technique: Multiple 1.25 mm axial sections of the right knee without intravenous contrast have been obtained. 2-D sagittal and coronal reconstructions have been obtained. 3-D reconstructions have been obtained. Low dose protocols were performed. One or more of the following dose reduction techniques were used; automated exposure control, adjustment of the mA and/or KV according to patient size, use of iterative reconstruction technique. Findings: Distal femur femoral condyles intact Patella intact with no patellar dislocation Fractures lateral tibial plateau, coronal image 46, sagittal image 36 with 3 mm depression of the lateral tibial plateau Intercondylar regions intact Tibia fibula intact Large knee effusion IMPRESSION: Fractures lateral tibial plateau with mild depression of the lateral tibial plateau,, age indeterminate on this study,. Consider MRI knee without contrast follow-up
== END | disposition home or self-care (01) ==
LOC: CCTX 13:34
PROVIDERS: PCP Internal Medicine; Referring Provider Orthopaedic Surgery Adult Reconstructive Orthopaedic Surgery; Visit Provider Orthopaedic Surgery Adult Reconstructive Orthopaedic Surgery
DX: S82.121A Displaced fracture of lateral condyle of right tibia, initial encounter for closed fracture (principal); W19.XXXA Unspecified fall, initial encounter
CPT/HCPCS: 73700

== ENCOUNTER 2025-09-14 12:58 | Outpatient (AMB) | payer MEDICARE, MEDICAID, SELFPAY ==
--- NOTE | 2025-09-14 13:13 | ORTHONT_ITS ---
Vital signs 09/14/25 13:14 Height 1.68 m Height Method Measured Weight 81.193 kg Weight Measurement Method Stated by Patient BMI 28.8 BP 154/88 H Blood Pressure Source Automatic Cuff Blood Pressure Location Left Upper Arm Position Sitting Respiration 18 Pulse 89 Pulse Source Monitor Temp 97.3 F Temp Source Temporal Artery Scan Pulse Oximetry (%) 98 Oxygen Delivery Method Room Air Med/Allergies Allergies & Medications Allergies No Known Allergies Allergy (Verified 09/14/25 13:14) Medication Reconciliation alprazolam 0.5 mg tablet 0.5 mg PO QDAY PRN anxiety 02/20/24 [History Confirmed 09/14/25] carvedilol 25 mg tablet 25 mg PO Q12H 02/20/24 [History Confirmed 09/14/25] cyclobenzaprine 10 mg tablet 10 mg PO HS PRN muscle spasm 02/20/24 [History Confirmed 09/14/25] diltiazem HCl 120 mg capsule,24 hr,extended release 120 mg PO QDAY 02/20/24 [History Confirmed 09/14/25] glipizide 5 mg tablet 5 mg PO BID 02/20/24 [History Confirmed 09/14/25] loratadine 10 mg tablet 10 mg PO QDAY 02/20/24 [History Confirmed 09/14/25] sacubitril 24 mg-valsartan 26 mg tablet (Entresto) 1 tab PO BID 02/20/24 [History Confirmed 09/14/25] sevelamer carbonate 2.4 gram oral powder packet 2.4 g PO TID 02/20/24 [History Confirmed 09/14/25] sodium polystyrene sulfonate 15 gram oral powder 15 g PO QDAY 02/20/24 [History Confirmed 09/14/25] apixaban 2.5 mg tablet (Eliquis) 2.5 mg PO Q12H 12/08/24 [History Confirmed 09/14/25] calcium acetate(phosphat bind) 667 mg capsule 1,334 mg PO TIDWMEAL 12/08/24 [History Confirmed 09/14/25] amiodarone 200 mg tablet 200 mg PO QDAY 12/14/24 [History Confirmed 09/14/25] vitamin B complex-vitamin C-folic acid 0.8 mg tablet (Dialyvite 800) 1 tab PO QDAY 12/14/24 [History Confirmed 09/14/25] vitamin B complex-vitamin C-folic acid 0.8 mg tablet (Nephro-Jj) 1 tab PO QDAY 12/14/24 [History Confirmed 09/14/25] hydrocodone 5 mg-acetaminophen 325 mg tablet 1 tab PO BID PRN pain #14 tabs 06/20/25 [Rx Confirmed 09/14/25] Exam Exam Patient is in no acute distress and is cooperative with the examination today. Breathing is nonlabored. Patient has a normal mood and affect. The patient has a gait that is nonantalgic Bilateral extremities were evaluated and demonstrates sensation intact to light touch. Palpable pedal pulses are present. No significant edema is present. Bilateral hips were examined. The patient has no pain with log roll of the hips. Internal rotation to 30 degrees and external rotation to 30 degrees is painless. Negative FADIR. Left knee was examined today. The left knee is in reasonable alignment. Range of motion from 0-120 degrees. Knee is stable to varus and valgus as well as AP translation with <5mm. Patient has a negative McMurrays. There is no pain with patellofemoral compression and no crepitus noted. The knee is nontender to palpation. The right knee was also examined. Right knee is tender to palpation laterally. Range of motion is limited secondary to pain X-rays demonstrate a nondisplaced lateral tibial plateau fracture. To be honest is very difficult to visualize as it is nondisplaced. CT scan shows an age indeterminate fracture as well Assessment and Plan Problem List (1) Closed fracture of lateral portion of tibial plateau: Status: Acute Plan: Patient is a 64-year-old male with medical comorbidities including dialysis is not an operative candidate at he supposedly has a lateral tibial plateau fracture It is nondisplaced and we will likely treat it nonoperatively as he is nonambulatory currently. We will get new xrays and progress his weight bearing and will get him started with pt. Advanced Care Planning Discussion Advance care planning discussed with:: patient Office Procedures GNS Level of Care Nursing/Assessment Patient Status: Established Patient Nursing Assessment/Reassesment: Medication Reconciliation, Update PMH in EMR and Vital Signs Coordination of Care: Complex Care and Chronic Disease 1-5, Education Complex Pt/Fam, Consent,records obtained, informed consent, Results/Orders obtained and Staff clarify orders Established Patient Charge Established Patient Point Assignment: 95 Established Patient Point Charge: EP Level 3 (80-115) MA Intake Visit Data Collection New Patient or Established: Established Patient (seen at [facility] within 3 years) Reason for Visit:: 6 WEEK F/U Seen by Clinical Staff ONLY (RN/MA): No [employer] Yard Supervisor Required: Yes PCP or OBGYN visit in last 3 months: Yes Hx Now: No Do You Feel Safe at Home: Yes Authorities Contacted: N/A Questionairres Past Medical History Past Medical History Have you ever been diagnosed with any of the following: Neurological Problems Seizures: No Epilepsy: No Cardiology Problems Cardiac Arrhythmia: Yes Atrial Fibrillation: Yes Angina: No Heart Murmur: Yes Hypercholesterolemia: Yes Congestive Heart Failure: No Edema: No Hypertension: Yes Respiratory Problems Chronic Obstructive Pulmonary Disease (COPD): No Pneumonia: Yes Sleep Apnea: No Stomache/Intestinal Problems Hepatitis: No Genital/Urinary Problems Renal Disease: Yes Kidney Stones: No Dialysis: Yes Musculoskeletal Problems Arthritis: No Head,Eye,Nose,Throat Problems Cataracts: Yes Blind: Yes Deafness: Yes Endocrine Problems Diabetes Mellitus Type 1: No Diabetes Mellitus Type 2: Yes Blood Problems Anemia: Yes Psychologic Problems Depression: Yes Anxiety: Yes Post Traumatic Stress Disorder: No Other Problems Hospitalization: Yes Down Syndrome: No Developmental Delay: No Shingles: No Falls: Yes Blood Transfusions: Yes Blood Transfusion Reaction: No Anesthesia Reactions: No Organ Transplant: No MRSA: No VRSA: No Chicken Pox: Yes Measles: Yes Mumps: Yes Cancer: No Surgical History Pacemaker: No Subjective Visit Visit for: follow up visit and knee Immunization / Flu Flu Vaccine in the Last 12 Months: Yes Flu Vaccine Exclusion Criteria: Already Received History of Present Illness Chief complaint: 6 WEEK F/U Patient is a 64-year-old male with a lateral tibial plateau fracture after a fall 3 monthsago. He is very sick and is on dialysis. He is pretty much wheelchair-bound and does stand for transfers. He only leaves the house when he gets dialysis. He has been doing well Personal History Red flag PMH: none BMI Counceling provided: Yes Pain Pain level (0-10): 7 Pain quality: dull Ambulatory data Ambulatory device: other (specify) (WHEELCHAIR) Treatments Number of previous injections: 0 Improvement with previous injections: No Number of Physical Therapy sessions: 0 Improvement with PT: No Improvement with NSAIDS: no Review of Systems Review of Systems: All systems negative unless otherwise noted in HPI.
[2025-09-14 13:14] VITALS: BP 154/88; PULSE 89; RESP 18; TEMP 36.3; O2SAT 98; BMI 28.8
--- NOTE | 2025-09-14 13:19 | XR_ITS ---
EXAMINATION: Bilateral knees AP single view Right knee PA lateral axial 3 views TECHNIQUE: Bilateral AP knees standing single view Right knee PA standing flexion, standing lateral, axial right knee 3 views total 4 views Date and time: September 14, 2025, 1351 hours INDICATIONS: Patient fell 2 months ago with injury of the right knee, right knee pain. FINDINGS: Moderate osteopenia. Advanced narrowing medial joint space right knee with erosive changes involving the medial femoral condyle and medial right tibial plateau Significant osteoarthritis lateral and patellofemoral joints right knee Large right knee effusion No patellar dislocation No significant narrowing medial lateral joint space left knee Heavy soft tissue vascular calcification IMPRESSION: Advanced erosive narrowing medial joint space right knee Significant osteoarthritis lateral patellofemoral joints right knee
== END 2025-09-14 13:25 | disposition home or self-care (01) ==
LOC: HODSRG 12:58
PROVIDERS: PCP Internal Medicine; Referring Provider Internal Medicine; Supervising Provider Orthopaedic Surgery Adult Reconstructive Orthopaedic Surgery; Visit Provider Orthopaedic Surgery Adult Reconstructive Orthopaedic Surgery
DX: S82.143D Displaced bicondylar fracture of unspecified tibia, subsequent encounter for closed fracture with routine healing (principal); W19.XXXD Unspecified fall, subsequent encounter; M17.11 Unilateral primary osteoarthritis, right knee; I12.0 Hypertensive chronic kidney disease with stage 5 chronic kidney disease or end stage renal disease; E11.22 Type 2 diabetes mellitus with diabetic chronic kidney disease; N18.6 End stage renal disease; Z99.2 Dependence on renal dialysis; Z99.3 Dependence on wheelchair
CPT/HCPCS: 73564; 99213; G0463

== ENCOUNTER 2025-09-14 15:41 | Emergency (ER) | payer MEDICARE, MEDICAID, SELFPAY ==
[2025-09-14 16:16] VITALS: BP 143/89; PULSE 99; RESP 18; TEMP 36.9; O2SAT 98; BMI 26.4
--- NOTE | 2025-09-14 16:18 | XR_ITS ---
Examination: Foot, left, 3 views Technique: AP, oblique, lateral views foot, 3 views Date and time of exam: September 14, 2025, 1638 hours, comparison June 20, 2025 INDICATIONS: Nonhealing wound bilateral in the foot noticed beginning 1 week ago. FINDINGS: Soft tissue vascular calcification Severe osteopenia Chronic erosions involving the proximal phalanx fourth digit with old fracture No berna cortical bone destruction IMPRESSION: No berna cortical bone destruction MRI foot without contrast follow-up would be preferable in excluding osteomyelitis
--- NOTE | 2025-09-14 16:19 | PD.EDRME ---
Rapid Medical Screening Exam [facility] Arrival date/time: 09/14/25 15:41 64-year-old male with a history of diabetes, end-stage renal disease on dialysis, presents to the emergency room with a chief complaint of a wound to sole of the right foot. Patient states he has a toothpick pierced in his foot but due to his neuropathy he never noticed. I have greeted and performed a focused initial assessment of this patient. A comprehensive ED assessment and evaluation of the patient, analysis of all test results, and completion of the medical decision making process will be conducted by additional ED providers. Chief Complaint: Wound/Laceration Time Seen by Provider: 09/14/25 16:00 Vital signs: Vital Signs Temperature 98.5 F 09/14/25 16:16 Pulse Rate 99 09/14/25 16:16 Respiratory Rate 18 09/14/25 16:16 Blood Pressure 143/89 H 09/14/25 16:16 Pulse Oximetry (%) 98 09/14/25 16:16 Oxygen Delivery Method Room Air 09/14/25 16:16 Vital signs reviewed by provider: Yes Exam: Erythema drainage and tenderness to the sole of the right foot Clear bilateral lung sounds Clinical Impression: Osteomyelitis/cellulitis/diabetic foot ulcer
[2025-09-14 16:40] LABS: Basophils # (Auto) 0.1 Thou/mm3 (0.0-0.2); Basophils % (Auto) 1 % (0-2.5); Eosinophils # (Auto) 0.1 Thou/mm3 (0.0-0.5); Eosinophils % (Auto) 1 % (0-10); Hematocrit 30.5 % (41.0-53.0); Hemoglobin 10.2 g/dL (13.5-16.0); Immature Granulocytes Auto 0.04 Thou/mm3 (0.00-0.00); Lymphocytes # (Auto) 0.4 Thou/mm3 (1.0-4.8); Lymphocytes % (Auto) 4 % (10-50); Mean Corpuscular HGB Conc 33.4 g/dl (31.0-37.0); Mean Corpuscular Hemoglobin 36.2 pg (25.0-35.0); Mean Corpuscular Volume 108 fL (80-100); Monocytes # (Auto) 1.0 Thou/mm3 (0.0-0.8); Monocytes % (Auto) 9 % (0-12); Neutrophils # (Auto) 9.4 Thou/mm3 (1.8-7.7); Neutrophils % (Auto) 85 % (37-80); Nucleated Red Blood Cell # 0.00 Thou/mm3 (0.00-0.00); Nucleated Red Blood Cell % 0 /100 WBC (0); Platelet Count 105 Thou/mm3 (140-440); RDW Standard Deviation 56.3 fL (35.1-43.9); Red Blood Count 2.82 Miln/mm3 (4.50-5.90); White Blood Count 11.0 Thou/mm3 (3.8-10.6)
[2025-09-14 17:07] LABS: Alanine Aminotransferase 27 U/L (10-49); Albumin, Serum 4.3 gm/dL (3.4-4.8); Albumin/Globulin Ratio 1.3 (1.2-2.2); Alkaline Phosphatase 241 U/L (46-116); Anion Gap 13 (7-16); Aspartate Amino Transferase 32 U/L (0-34); BUN/Creatinine Ratio 7 Ratio (12-20); Bilirubin,Total 0.5 mg/dL (0.3-1.2); Blood Urea Nitrogen 45 mg/dL (9-23); C-Reactive Protein 5.2 mg/dL (0.0-0.9); Calcium 9.2 mg/dL (8.3-10.6); Calcium (Corrected) 9.2 mg/dL (8.5-10.1); Carbon Dioxide 30.3 mMol/L (20.0-31.0); Chloride 91 mMol/L (98-107); Creatinine (Component) 6.3 mg/dL (0.6-1.3); Estimated Creatinine Clearance 11.7 mL/min (>60); Globulin 3.2 gm/dL (2.3-3.5); Glucose 154 mg/dL (74-106); Osmolality,Calculated 282 (275-295); Potassium 4.3 mMol/L (3.4-5.1); Sodium 134 mMol/L (136-145); Total Protein 7.5 gm/dL (5.7-8.2); eGFR 9 See Note
[2025-09-14 17:50] LABS: Sed Rate (ESR) 52 mm/hr (0-20)
--- NOTE | 2025-09-14 19:51 | PD.EDRME ---
Rapid Medical Screening Exam [facility] Arrival date/time: 09/14/25 15:41 09/14/25 15:41 64-year-old male with a history of diabetes, end-stage renal disease on dialysis, presents to the emergency room with a chief complaint of a wound to sole of the right foot. Patient states he has a toothpick pierced in his foot but due to his neuropathy he never noticed. I have greeted and performed a focused initial assessment of this patient. A comprehensive ED assessment and evaluation of the patient, analysis of all test results, and completion of the medical decision making process will be conducted by additional ED providers. Chief Complaint: Wound/Laceration Time Seen by Provider: 09/14/25 16:00 Vital signs: Vital Signs Temperature 98.5 F 09/14/25 16:16 Pulse Rate 99 09/14/25 16:16 Respiratory Rate 18 09/14/25 16:16 Blood Pressure 143/89 H 09/14/25 16:16 Pulse Oximetry (%) 98 09/14/25 16:16 Oxygen Delivery Method Room Air 09/14/25 16:16 RME Narrative: 09/14/25 15:41 64-year-old male with a history of diabetes, end-stage renal disease on dialysis, presents to the emergency room with a chief complaint of a wound to sole of the right foot. Patient states he has a toothpick pierced in his foot but due to his neuropathy he never noticed. I have greeted and performed a focused initial assessment of this patient. A comprehensive ED assessment and evaluation of the patient, analysis of all test results, and completion of the medical decision making process will be conducted by additional ED providers. Exam: Erythema drainage and tenderness to the sole of the right foot Clear bilateral lung sounds Clinical Impression: Osteomyelitis/cellulitis/diabetic foot ulcer
--- NOTE | 2025-09-14 19:58 | PD.EDADULT ---
ED General RME/HPI General Chief complaint: Wound/Laceration Stated complaint: PUNCTURE WOUND R FOOT Time Seen by Provider: 09/14/25 16:00 Arrival date/time: 09/14/25 15:41 CC: Right foot pain after stepping on a toothpick 1 week ago. Localized pain is 2-3 on a 10 scale. The patient is a diabetic and did not notice it until several days ago. Patient is an exceedingly poor historian. But admits he has not been seen by any medical professional for this complaint. Vital signs are stable patient is afebrile. Patient is a dialysis patient dialyzed Saturday, Dr. Gonzalez is his music director. RME / HPI RME / HPI narrative: 09/14/25 15:41 64-year-old male with a history of diabetes, end-stage renal disease on dialysis, presents to the emergency room with a chief complaint of a wound to sole of the right foot. Patient states he has a toothpick pierced in his foot but due to his neuropathy he never noticed. I have greeted and performed a focused initial assessment of this patient. A comprehensive ED assessment and evaluation of the patient, analysis of all test results, and completion of the medical decision making process will be conducted by additional ED providers. Exam: Erythema drainage and tenderness to the sole of the right foot Clear bilateral lung sounds Impression: Osteomyelitis/cellulitis/diabetic foot ulcer Related Data Home Medications ?Medication ?Instructions ?Recorded ?Confirmed alprazolam 0.5 mg tablet 0.5 mg PO QDAY PRN anxiety 02/20/24 09/14/25 carvedilol 25 mg tablet 25 mg PO Q12H 02/20/24 09/14/25 cyclobenzaprine 10 mg tablet 10 mg PO HS PRN muscle spasm 02/20/24 09/14/25 diltiazem HCl 120 mg capsule,24 120 mg PO QDAY 02/20/24 09/14/25 hr,extended release glipizide 5 mg tablet 5 mg PO BID 02/20/24 09/14/25 loratadine 10 mg tablet 10 mg PO QDAY 02/20/24 09/14/25 sacubitril 24 mg-valsartan 26 mg 1 tab PO BID 02/20/24 09/14/25 tablet (Entresto) sevelamer carbonate 2.4 gram oral 2.4 g PO TID 02/20/24 09/14/25 powder packet sodium polystyrene sulfonate 15 15 g PO QDAY 02/20/24 09/14/25 gram oral powder apixaban 2.5 mg tablet (Eliquis) 2.5 mg PO Q12H 12/08/24 09/14/25 calcium acetate(phosphat bind) 667 1,334 mg PO TIDWMEAL 12/08/24 09/14/25 mg capsule amiodarone 200 mg tablet 200 mg PO QDAY 12/14/24 09/14/25 vitamin B complex-vitamin C-folic 1 tab PO QDAY 12/14/24 09/14/25 acid 0.8 mg tablet (Dialyvite 800) vitamin B complex-vitamin C-folic 1 tab PO QDAY 12/14/24 09/14/25 acid 0.8 mg tablet (Nephro-Jj) Previous Rx's ?Medication ?Instructions ?Recorded hydrocodone 5 mg-acetaminophen 325 1 tab PO BID PRN pain #14 tabs 06/20/25 mg tablet sulfamethoxazole 800 1 tab PO BID 7 days #14 tabs 09/14/25 mg-trimethoprim 160 mg tablet (Bactrim DS) Allergies Allergy/AdvReac Type Severity Reaction Status Date / Time No Known Allergies Allergy Verified 09/14/25 13:14 Review of Systems Review of Systems Narrative Review of Systems: GEN: No fever, no chills, no weight loss EYES: No discharge, no visual changes, no pain HEENT: No ear pain, no congestion, no sore throat PULM: No shortness of breath, no cough, no congestion CV: No chest pain, no dyspnea on exertion, no palpitations GI: No nausea, no vomiting, no diarrhea, no pain, no constipation : No frequency, no urgency, no dysuria MUSC/SKEL: No joint pain, no back pain SKIN: Foot abscess no rash PSYCH: No hallucinations, no depression HEME/LYMPH: No easy bleeding or bruising tendencies NEURO: No weakness, no headache Past Medical History Past Medical History NEUROLOGIC: Negative Neurological Disorders, Seizures or Epilepsy CARDIAC: Positive Cardiac Disorders, Cardiac Arrhythmia, Atrial Fibrillation, Heart Murmur, Hypercholesterolemia and Hypertension; Negative Angina, Congestive Heart Failure or Edema RESPIRATORY: Positive Pneumonia; Negative Chronic Obstructive Pulmonary Disease (COPD) or Sleep Apnea GASTROINTESTINAL: Negative Gastrointestinal Disorders or Hepatitis GENITOURINARY: Positive Genitourinary Disorders, Renal Disease and Dialysis; Negative Kidney Stones MUSCULOSKELETAL: Positive Musculoskeletal Disorders; Negative Arthritis ENT: Positive Cataracts, Blind and Deafness ENDOCRINE: Positive Endocrine Disorders and Diabetes Mellitus Type 2; Negative Diabetes Mellitus Type 1 HEMATOLOGIC: Positive Blood Disorders and Anemia PSYCHO/SOCIAL: Positive Depression and Anxiety; Negative Post Traumatic Stress Disorder OTHER HISTORY: Positive Hospitalization, Falls, Blood Transfusions, Chicken Pox, Measles and Mumps; Negative Autoimmune Disease, Down Syndrome, Developmental Delay, Shingles, Blood Transfusion Reaction, Anesthesia Reactions, Organ Transplant, MRSA, VRSA or Cancer Family History FAMILY HISTORY: Negative Family Cardiac Disorders or Family Anesthesia Reaction Surgical History SURGICAL: Negative Cardiac Surgery, Coronary Stent, Pacemaker, Endocrine Surgery, Abdominal Surgery, Nephrectomy, Joint Replacement, Neurologic Surgery, Mastectomy, Vasectomy or Organ Transplant Social History SMOKING STATUS: Never smoker ED Exam Narrative Physical exam: [General: Not in any acute distress Head normocephalic HEENT: Within acceptable limits Neck is supple nontender Chest equal chest rise nontender to palpation Respiratory: Clear to auscultation no wheezes crackles or rubs CV: Rate rhythm is regular no murmurs rubs or clicks Abdomen is distended secondary to body habitus soft nontender no masses positive bowel sounds all 4 quadrants Back: No CVA tenderness no spinous process tenderness from cervical spine thoracic and lumbar spine Skin: Right ball of the foot exudative underneath the skin with a small puncture site that is oozing exudate. No surrounding erythema or edema. Otherwise skin is intact no petechiae rash induration ulceration or crepitus Extremities: Moving all extremity against resistance cap refill less than 2 seconds neurosensory intact Neuro: Awake alert oriented x2, person and place, Glascow coma 15 no focal deficits] Course Quality Measures none Orders Category Date Time Status XR foot comp RT min 3V Stat Exams 09/14/25 16:18 Completed CBC Stat Lab 09/14/25 16:29 Completed CMP [Comprehensive Metabolic Panel] Stat Lab 09/14/25 16:29 Completed CRP [C-Reactive Protein] Stat Lab 09/14/25 16:29 Completed ESR [Sed Rate (ESR)] Stat Lab 09/14/25 16:29 Completed Lidocaine 1% 20 ml [Xylocaine 1% 20 ML] Med 09/14/25 21:21 Discontinued 20 ml INFL X1 ONE cefTRIAXone [Rocephin] 1,000 mg Med 09/14/25 22:02 Discontinued Lidocaine 1% Pf 5 ml [Xylocaine 1% Pf 5 ml] 2.1 ml IM X1 cefTRIAXone/D5w 1gm IV premix [Rocephin/D5w 1gm IV Med 09/14/25 21:39 Discontinued premix] 1 gm in 50 ml IV X1 Vital Signs Vital signs: Vital Signs Temperature 98.5 F 09/14/25 16:16 Pulse Rate 99 09/14/25 16:16 Respiratory Rate 18 09/14/25 16:16 Blood Pressure 143/89 H 09/14/25 16:16 Pulse Oximetry (%) 98 09/14/25 16:16 Oxygen Delivery Method Room Air 09/14/25 16:16 PROCEDURES: Procedure Comment I&D: Anesthesia: 1% lidocaine injected 3 mL into the local site. Site and performed across Montes 1 cm x 1 cm with a #11 scalpel. Site was extensively probed, no foreign body was found no exudate was released. Bulky dressing was applied patient tolerated the procedure well. Discharge Plan Plan Patient Disposition: HOME (Self Care) Patient condition on transfer: Stable Prescriptions/Referrals Prescriptions/Med Rec: New sulfamethoxazole-trimethoprim [Bactrim DS] 800-160 mg tablet 1 tab PO BID 7 Days Qty: 14 0RF No Action carvedilol 25 mg tablet 25 mg PO Q12H Patient Comments: TOME 1 TABLETA POR V A ORAL DOS VECES AL D A alprazolam 0.5 mg tablet 0.5 mg PO QDAY PRN (Reason: anxiety) Patient Comments: TOME GREG TABLETA TODOS LOS D CUANDO SEA NECESARIO diltiazem HCl 120 mg capsule,extended release 24 hr 120 mg PO QDAY Patient Comments: TOME 1 C PSULA POR V A ORAL TODOS LOS D sodium polystyrene sulfonate 15 gram Powder 15 g PO QDAY Patient Comments: MESCLE 15 GM EN LIQUIDO Y TOME TODOS LOS D loratadine 10 mg tablet 10 mg PO QDAY Patient Comments: TOME GREG TABLETA POR V A ORAL TODOS LOS D glipizide 5 mg tablet 5 mg PO BID Patient Comments: TOME GREG TABLETA POR V A ORAL DOS VECES AL D A sevelamer carbonate 2.4 gram powder in packet 2.4 g PO TID Patient Comments: MEZCLAR 1 PAQUETE Y TOME SEG N LO INDICADO MISAEL VECES AL D A Entresto 24-26 mg tablet 1 tab PO BID Patient Comments: TOME 1 TABLETA POR V A ORAL DOS VECES AL D A cyclobenzaprine 10 mg tablet 10 mg PO HS PRN (Reason: muscle spasm) Patient Comments: TOME 1 TABLETA POR V A ORAL TODOS LOS D AL ACOSTARSE CUANDO SEA NECESARIO Eliquis 2.5 mg tablet 2.5 mg PO Q12H calcium acetate(phosphat bind) 667 mg capsule 1,334 mg PO TIDWMEAL Patient Comments: TOME 2 CAPSULAS POR VIA ORAL MISAEL VECES AL SOHAIL CON ALIMENTO amiodarone 200 mg tablet 200 mg PO QDAY Nephro-Jj 0.8 mg tablet 1 tab PO QDAY Dialyvite 800 0.8 mg tablet 1 tab PO QDAY hydrocodone-acetaminophen 5-325 mg tablet 1 tab PO BID MDD 2 PRN (Reason: pain) Qty: 14 0RF Referrals: David Peoples DPM [Physician, Podiatry] - In 1 week Sandra Mendosa MD [Primary Care Provider, Nephrology] - In 1 week Problem List Clinical Impression: Puncture wound of foot, Foot pain Patient/Caregiver Discharge Instructions Other Activity Instructions:: Keep the foot clean and dry, follow-up with your primary care doctor get a referral to the motorcycle deliverer for reevaluation. Take all your medications until completely gone. If is a worsening of symptoms return the emergency room for reevaluation. Education Materials: ED Puncture Wound (Foot) Print Language: Greek Stand Alone Forms: Elizabeth Award Info., Patient Portal Info Letter PA/POLYMERIZATION SUPERVISOR Supervising Physician PA/POLYMERIZATION SUPERVISOR Supervising Physician: Steve JACKSONP [facility] Clinical Information Provided by: patient Medical Records reviewed [facility] Meds/Rx considered, not ordered None Labs/Rad/Tests considered, not ordered None Chronic Illness/Social Conditions Explain: Diabetes hypertension Labs Labs: interpreted by vt Lab(s) Interpretation(s): CBC shows leukocytosis 11.0, and H&H of 10.2 and 30.5. Platelets at 105. ESR 52 Sodium 134 chloride 91 BUN 45 creatinine 6.3 glucose of 154. C-reactive protein of 5.2 Imaging Imaging interpretation: interpreted by me Imaging Interpretation(s): No foreign body no berna cortical bone destruction. Medication Administration(s) Medication Administration History Discontinued Medications Ceftriaxone Sodium 1,000 mg/ (Lidocaine HCl 2.1 ml) 0 mg IM X1 ONE Stop: 09/14/25 22:03 Last Admin: 09/14/25 22:31 Dose: 1,000 mg Documented By: YOLIS Ceftriaxone Sodium/Dextrose (Rocephin/D5w 1gm Iv Premix) 1 gm in 50 mls @ 100 mls/hr IV X1 ONE Stop: 09/14/25 22:08 Last Admin: 09/14/25 22:04 Dose: Not Given Documented By: YOLIS Non-Admin Reason: Cancelled by Provider Lidocaine HCl (Lidocaine Hcl 1% 20 Ml Vial) 20 ml INFL X1 ONE Stop: 09/14/25 21:22 Last Admin: 09/14/25 21:35 Dose: 20 ml Documented By: YOLIS Comments: ADMIN BY PROVIDER
[2025-09-14 20:04] VITALS: BP 146/95; PULSE 94; RESP 17; TEMP 37.5; O2SAT 98
[2025-09-14] MEDS: LIDOCAINE HCL 1% 20 ML VIAL INFL (21:35)
[2025-09-14 22:16] VITALS: BP 145/96; PULSE 93; RESP 18; TEMP 36.8; O2SAT 100
== END 2025-09-14 22:41 | disposition home or self-care (01) ==
PROVIDERS: Nurse Practitioner Family; Emergency Provider Emergency Medicine; PCP Internal Medicine
DX: S91.331A Puncture wound without foreign body, right foot, initial encounter (principal); D72.829 Elevated white blood cell count, unspecified; W26.8XXA Contact with other sharp object(s), not elsewhere classified, initial encounter
CPT/HCPCS: 10060; 36415; 73630; 80053; 85025; 85652; 86140; 96372; 99283; J0696; J3490

== ENCOUNTER 2025-09-23 10:14 | Day surgery (SDC) | payer MEDICARE, MEDICAID, SELFPAY ==
--- NOTE | 2025-09-22 07:00 | EKG_ITS ---
[facility] Test Date: 2025-09-22 Pat Name: LISA ESQUIVELDepartment: Room: - Gender: Male News Correspondent: GIUSEPPE : 1960 Requested By: Ines Galvan Order Number: [id number] Reading MD: Ines Galvan Measurements Intervals [place] Rate: 84 P: [place]: QRS: 44 QRSD: 122 T: 73 QT: 417 QTc: 495 Interpretive Statements ATRIAL FLUTTER/TACHYCARDIA MODERATE INTRAVENTRICULAR CONDUCTION DELAY [105+ ms QRS DURATION, 80+ ms Q/S IN V1/V2, NO Q AND 60+ ms R IN I/aVL/V5/V6] NONSPECIFIC ST & T-WAVE ABNORMALITY Compared to ECG 01/03/2025 19:55:43 T-wave abnormality now present Atrial fibrillation no longer present ST (T wave) deviation no longer present /store/S0/[id number]/ecg/[id number].pdf
[2025-09-22 15:27] LABS: Basophils # (Auto) 0.1 Thou/mm3 (0.0-0.2); Basophils % (Auto) 1 % (0-2.5); Eosinophils # (Auto) 0.1 Thou/mm3 (0.0-0.5); Eosinophils % (Auto) 2 % (0-10); Hematocrit 30.5 % (41.0-53.0); Hemoglobin 10.0 g/dL (13.5-16.0); Immature Granulocytes Auto 0.04 Thou/mm3 (0.00-0.00); Lymphocytes # (Auto) 0.6 Thou/mm3 (1.0-4.8); Lymphocytes % (Auto) 9 % (10-50); Mean Corpuscular HGB Conc 32.8 g/dl (31.0-37.0); Mean Corpuscular Hemoglobin 36.1 pg (25.0-35.0); Mean Corpuscular Volume 110 fL (80-100); Monocytes # (Auto) 0.6 Thou/mm3 (0.0-0.8); Monocytes % (Auto) 9 % (0-12); Neutrophils # (Auto) 5.5 Thou/mm3 (1.8-7.7); Neutrophils % (Auto) 79 % (37-80); Nucleated Red Blood Cell # 0.00 Thou/mm3 (0.00-0.00); Nucleated Red Blood Cell % 0 /100 WBC (0); Platelet Count 139 Thou/mm3 (140-440); RDW Standard Deviation 58.4 fL (35.1-43.9); Red Blood Count 2.77 Miln/mm3 (4.50-5.90); White Blood Count 6.9 Thou/mm3 (3.8-10.6)
[2025-09-22 15:34] LABS: INR 1.1 (0.9-1.3); Partial Thromboplastin Time 35.3 Seconds (22.0-36.0); Prothrombin Time 11.9 Seconds (9.0-12.2)
[2025-09-22 15:46] LABS: Anion Gap 9 (7-16); BUN/Creatinine Ratio 6 Ratio (12-20); Blood Urea Nitrogen 21 mg/dL (9-23); Calcium 9.1 mg/dL (8.3-10.6); Carbon Dioxide 35.4 mMol/L (20.0-31.0); Chloride 95 mMol/L (98-107); Creatinine (Component) 3.8 mg/dL (0.6-1.3); Glucose 103 mg/dL (74-106); Osmolality,Calculated 280 (275-295); Potassium 4.0 mMol/L (3.4-5.1); Sodium 139 mMol/L (136-145); eGFR 17 See Note
[2025-09-23] VITALS (19 sets, daily range): BP systolic 121–153; BP diastolic 65–96; PULSE 76–92; RESP 10–20; TEMP 36.4–36.7; O2SAT 95–100
--- NOTE | 2025-09-23 12:40 | PC.NURSE ---
patient awake, alert, breathing unlabored, s/p LHC and RHC by Dr. Gustafson, report given to Suzanna COY, patient to recovery for 4 hours. arterial and venous sheath in place to right groin, both sheaths can be removed now
--- NOTE | 2025-09-23 13:47 | PC.NURSE ---
1330: Assumed care. Pt resting supine with no complaints voiced. Resp even, unlabored. VS stable. Right groin with dressing in place. No swelling, hematoma. 1345: at bedside.
--- NOTE | 2025-09-23 15:40 | PC.NURSE ---
1540: Report to Rachelle COY.
--- NOTE | 2025-09-23 17:19 | PC.NURSE ---
patient transferred via wheelchair to personal vehicle. patient alert and oriented gcs of 15. patient had bowel movement. He is HD patient oliguric per patient. site is soft, flat, nontender, and no signs of hematoma. dressing is clean dry and intact. education given to patient and spouse. both expressed verbal and demonstrated understanding.
--- NOTE | 2025-09-27 09:00 | ESOP_ITS ---
RE: LISA ESQUIVEL : 1960 DATE OF OPERATION: 09/23/2025 PROCEDURES PERFORMED: 1. Diagnostic right and left heart cardiac catheterization, selective coronary angiogram, left ventricular angiogram, CPT 92030. 2. Conscious sedation 30 minute duration. 3. Iliofemoral angiogram. 4. Ultrasound-guided access of right femoral artery and femoral vein. DIAGNOSES: Severe calcific aortic stenosis, congestive heart failure, cardiomyopathy. HISTORY AND INDICATION: Mr Lisa Kenney is a 64-year-old male with a past medical history of hypertension, chronic kidney disease on hemodialysis. Has been having recurrent shortness of breath and angina. Patient is found to have severe calcific aortic stenosis on cardiac echo with moderate LV dysfunction, ejection fraction 35%. Recommended to have right and left heart cardiac catheterization, coronary angiogram because of symptomatic aortic stenosis with shortness of breath. PROCEDURE DETAILS: Patient brought to cardiac catheterization lab, risk, benefits, and alternatives explained to the patient and femoral approach was taken. Patient was given conscious sedation, 2 mg of Versed, 100 mcg of fentanyl for conscious sedation. Right femoral artery and vein were cannulated with micropuncture technique and a 5-[place] sheath was introduced in the right femoral artery and 7-[place] sheath introduced in the right femoral vein. Right heart catheterization was performed with a [place]-Mary catheter. Right heart pressures were measured. Pulmonary artery wedge pressures were measured. Cardiac output was measured. Subsequently, selective right and left coronary angiogram performed by JL4 and JR4 diagnostic catheter. Left heart catheterization is performed with AL1 diagnostic catheter with straight guidewire and aortic valve was crossed. Left ventricular angiogram performed. Patient tolerated the procedure well, no complications. Cardiac catheterization show following findings: HEMODYNAMICS: The left ventricular pressure measured to be 140/6, EDP is 24 mmHg. Aortic pressure is 106/79 mmHg. There was a peak gradient of 40 mmHg. Mean gradient of approximately 28 mmHg with a low cardiac output of 3.5 liters per minute. The other pressures include right atrial pressure of 11 mmHg, right ventricular pressure 58/7, pulmonary artery wedge pressure 26 mmHg, PA pressure 64/28 mmHg, mean of 44 mmHg. This procedure is consistent with moderate pulmonary hypertension. Aortic valve area is measured to be 0.75 square centimeter. Left ventricular angiogram showed evidence of moderate global hypokinesis, ejection fraction 30-35%. Coronary angiogram show following findings: Right coronary artery is large, dominant, appears normal, gives off PDA, posterolateral branches, all of them normal. Left coronary system: Left main coronary artery is normal, left anterior descending artery is normal, circumflex artery is normal. No obstructive coronary artery disease detected. Iliofemoral angiogram showed normal size femoral artery, no significant disease. Cardiac fluoroscopy showed evidence of calcification of the aortic root as well as heavy calcification of the aortic valve. SUMMARY FINDINGS: 1. Severe calcific aortic stenosis with low gradient, low flow, severe stenosis with low cardiac output. 2. Moderate LV dysfunction, ejection fraction 30-35% possibly secondary to aortic stenosis. 3. Normal nonobstructive epicardial coronary arteries. RECOMMENDATION: Patient recommended to continue medical management. Patient is recommended a transcatheter aortic valve replacement, will be referred for the procedure as an outpatient. cc: DT: 08:44:19 TT: 08:59:00 Ref: [id number] - TID: [id number]
== END 2025-09-23 17:18 | disposition home or self-care (01) ==
PROVIDERS: PCP Internal Medicine; Referring Provider Internal Medicine Cardiovascular Disease; Visit Provider Internal Medicine Cardiovascular Disease
PROC: (CPT 93460; principal; 2025-09-23 11:30)
DX: I35.0 Nonrheumatic aortic (valve) stenosis (principal); I70.0 Atherosclerosis of aorta; I13.2 Hypertensive heart and chronic kidney disease with heart failure and with stage 5 chronic kidney disease, or end stage renal disease; N18.5 Chronic kidney disease, stage 5; I50.9 Heart failure, unspecified; Z99.2 Dependence on renal dialysis; I42.9 Cardiomyopathy, unspecified; I20.9 Angina pectoris, unspecified; Z01.810 Encounter for preprocedural cardiovascular examination; E78.00 Pure hypercholesterolemia, unspecified; I48.21 Permanent atrial fibrillation; Z79.01 Long term (current) use of anticoagulants; Z79.899 Other long term (current) drug therapy
CPT/HCPCS: 93460; 36415; 80048; 85025; 85610; 85730; 93005; 99152; 99153; A4649; C1725; C1894; J0153; J0168; J0461; J1643; J2250; J2312; J2371; J2405; J3010; J3490; Q9967; A9270; J2305

== ENCOUNTER → 2025-09-23 | Outpatient (CLI) | payer MEDICARE, MEDICAID, SELFPAY | END | disposition home or self-care (01) | PROVIDERS: PCP Internal Medicine; Referring Provider Internal Medicine; Visit Provider Student in an Organized Health Care Education/Training Program | DX: E11.621 Type 2 diabetes mellitus with foot ulcer (principal); S91.331A Puncture wound without foreign body, right foot, initial encounter; X58.XXXA Exposure to other specified factors, initial encounter; L97.412 Non-pressure chronic ulcer of right heel and midfoot with fat layer exposed; K70.31 Alcoholic cirrhosis of liver with ascites; I73.9 Peripheral vascular disease, unspecified; E03.9 Hypothyroidism, unspecified; Z79.84 Long term (current) use of oral hypoglycemic drugs; D64.9 Anemia, unspecified; F41.9 Anxiety disorder, unspecified; N18.6 End stage renal disease; I11.9 Hypertensive heart disease without heart failure; G47.30 Sleep apnea, unspecified; Z87.81 Personal history of (healed) traumatic fracture; Z87.891 Personal history of nicotine dependence; F10.21 Alcohol dependence, in remission; H91.8X9 Other specified hearing loss, unspecified ear | CPT/HCPCS: 11042; 99213; A9270; G0463 ==

== ENCOUNTER → 2025-09-30 | Outpatient (CLI) | payer MEDICARE, MEDICAID, SELFPAY | END | disposition home or self-care (01) | PROVIDERS: PCP Internal Medicine; Referring Provider Internal Medicine; Visit Provider Student in an Organized Health Care Education/Training Program | DX: E11.621 Type 2 diabetes mellitus with foot ulcer (principal); S91.331A Puncture wound without foreign body, right foot, initial encounter; X58.XXXA Exposure to other specified factors, initial encounter; L97.412 Non-pressure chronic ulcer of right heel and midfoot with fat layer exposed; K70.31 Alcoholic cirrhosis of liver with ascites; I73.9 Peripheral vascular disease, unspecified; E03.9 Hypothyroidism, unspecified; Z79.84 Long term (current) use of oral hypoglycemic drugs; D64.9 Anemia, unspecified; F41.9 Anxiety disorder, unspecified; N18.6 End stage renal disease; I11.9 Hypertensive heart disease without heart failure; G47.30 Sleep apnea, unspecified | CPT/HCPCS: 99213; A9270; G0463 ==

== ENCOUNTER → 2025-09-30 | Outpatient (CLI) | payer MEDICARE, MEDICAID, SELFPAY ==
[2025-09-30 11:27] LABS: Basophils # (Auto) 0.1 Thou/mm3 (0.0-0.2); Basophils % (Auto) 1 % (0-2.5); Eosinophils # (Auto) 0.1 Thou/mm3 (0.0-0.5); Eosinophils % (Auto) 2 % (0-10); Hematocrit 30.4 % (41.0-53.0); Hemoglobin 10.0 g/dL (13.5-16.0); Immature Granulocytes Auto 0.02 Thou/mm3 (0.00-0.00); Immature Reticulocyte Fraction 16.4 % (2.3-13.4); Lymphocytes # (Auto) 0.6 Thou/mm3 (1.0-4.8); Lymphocytes % (Auto) 9 % (10-50); Mean Corpuscular HGB Conc 32.9 g/dl (31.0-37.0); Mean Corpuscular Hemoglobin 36.8 pg (25.0-35.0); Mean Corpuscular Volume 112 fL (80-100); Monocytes # (Auto) 0.8 Thou/mm3 (0.0-0.8); Monocytes % (Auto) 11 % (0-12); Neutrophils # (Auto) 5.6 Thou/mm3 (1.8-7.7); Neutrophils % (Auto) 78 % (37-80); Nucleated Red Blood Cell # 0.00 Thou/mm3 (0.00-0.00); Nucleated Red Blood Cell % 0 /100 WBC (0); Platelet Count 132 Thou/mm3 (140-440); RDW Standard Deviation 61.2 fL (35.1-43.9); Red Blood Count 2.72 Miln/mm3 (4.50-5.90); Reticulocyte % (Auto) 1.9 % (0.5-1.5); Reticulocyte Absolute Auto 51.7 Biln/L (25.0-75.0); Reticulocyte Hgb Content 42.5 pg (28.0-35.0); White Blood Count 7.2 Thou/mm3 (3.8-10.6)
[2025-09-30 11:44] LABS: Alanine Aminotransferase 26 U/L (10-49); Albumin, Serum 4.3 gm/dL (3.4-4.8); Albumin/Globulin Ratio 1.2 (1.2-2.2); Alkaline Phosphatase 195 U/L (46-116); Anion Gap 10 (7-16); Aspartate Amino Transferase 33 U/L (0-34); BUN/Creatinine Ratio 7 Ratio (12-20); Bilirubin,Total 0.4 mg/dL (0.3-1.2); Blood Urea Nitrogen 37 mg/dL (9-23); Calcium 10.2 mg/dL (8.3-10.6); Calcium (Corrected) 10.2 mg/dL (8.5-10.1); Carbon Dioxide 32.9 mMol/L (20.0-31.0); Chloride 92 mMol/L (98-107); Creatinine (Component) 5.0 mg/dL (0.6-1.3); Globulin 3.5 gm/dL (2.3-3.5); Glucose 62 mg/dL (74-106); LDH (Lactate Dehydrogenase) 161 U/L (120-246); Osmolality,Calculated 276 (275-295); Potassium 4.6 mMol/L (3.4-5.1); Sodium 135 mMol/L (136-145); Total Protein 7.8 gm/dL (5.7-8.2); eGFR 12 See Note
[2025-09-30 11:56] LABS: Path Review Blood Smear Sent to Pathologist
[2025-09-30 14:45] LABS: Folate 15.50 ng/mL (>5.38); Vitamin B12 659 pg/mL (211-911)
[2025-09-30 14:50] LABS: Ferritin 1386 ng/mL (10.5-307.3); Iron 111 mcg/dL (65-175); Percent Iron Saturation 48 % (20-55); Total Iron Binding Capacity 229 mcg/dL (250-425); Unsaturated Iron Binding 118 (225-295)
[2025-10-08 07:43] LABS: Haptoglobin* 137 mg/dL (43-212)
== END | disposition home or self-care (01) ==
PROVIDERS: PCP Internal Medicine; Referring Provider Nurse Practitioner Family; Visit Provider Nurse Practitioner Family
DX: D64.9 Anemia, unspecified (principal)
CPT/HCPCS: 36415; 80053; 82607; 82728; 82746; 83010; 83540; 83550; 83615; 85025; 85046

== ENCOUNTER → 2025-10-05 | Outpatient (CLI) | payer MEDICARE, MEDICAID, SELFPAY | END | disposition home or self-care (01) | PROVIDERS: PCP Internal Medicine; Referring Provider Internal Medicine; Visit Provider Student in an Organized Health Care Education/Training Program | DX: E11.621 Type 2 diabetes mellitus with foot ulcer (principal); S91.331A Puncture wound without foreign body, right foot, initial encounter; X58.XXXA Exposure to other specified factors, initial encounter; L97.412 Non-pressure chronic ulcer of right heel and midfoot with fat layer exposed; K70.31 Alcoholic cirrhosis of liver with ascites; I73.9 Peripheral vascular disease, unspecified; E03.9 Hypothyroidism, unspecified; Z79.84 Long term (current) use of oral hypoglycemic drugs; D64.9 Anemia, unspecified; F41.9 Anxiety disorder, unspecified; N18.6 End stage renal disease; I11.9 Hypertensive heart disease without heart failure; G47.30 Sleep apnea, unspecified; Z87.81 Personal history of (healed) traumatic fracture; Z87.891 Personal history of nicotine dependence | CPT/HCPCS: 99212; A9270; G0463 ==

== ENCOUNTER → 2025-10-06 | Outpatient (CLI) | payer MEDICARE, MEDICAID, SELFPAY ==
--- NOTE | 2025-10-06 16:45 | XR_ITS ---
Examination: MRI right foot, without contrast Date and time of exam: October 06, 2025, 1743 hours INDICATIONS: Nonhealing wound in the foot beginning 1 week ago Technique: Multiple axial sagittal and coronal images of the right foot have been obtained with the Siemens high-resolution 1.5 Velvet MRI scanner. Images obtained include T2-weighted fat-suppressed sagittal sections, TR 3500, TE 46, T2 weighted coronal fat suppressed images, TR 3050, TE 84, T2-weighted transverse fat suppressed images, TR 3260, TE 63, proton density transverse images, TR 4720 TE 46, and T1 weighted coronal images, TR 560, TE 13. Findings: Increased signal in the distal phalanx first digit with soft tissue swelling around the distal phalanx Erosions involving the distal aspect of the distal phalanx first digit which appear chronic No soft tissue abscess Metatarsal tarsal bones intact No occult fracture Mild plantar fasciitis IMPRESSION: Chronic appearing erosions involving the distal phalanx first digit, clinical correlation advised, recommend correlation with repeat: Plain films of the right toes follow-up
== END | disposition home or self-care (01) ==
LOC: SMRI 16:32
PROVIDERS: PCP Internal Medicine; Referring Provider Internal Medicine; Visit Provider Internal Medicine
DX: M86.671 Other chronic osteomyelitis, right ankle and foot (principal); M85.871 Other specified disorders of bone density and structure, right ankle and foot
CPT/HCPCS: 73718

== ENCOUNTER 2025-10-12 15:10 | Outpatient (RCR) | payer MEDICARE, MEDICAID, SELFPAY | END 2025-10-20 23:59 | disposition home or self-care (01) | LOC: SCTC 15:10 | PROVIDERS: PCP Internal Medicine; Referring Provider Internal Medicine; Visit Provider Nurse Practitioner Family | DX: N18.6 End stage renal disease (principal); D63.1 Anemia in chronic kidney disease; Z99.2 Dependence on renal dialysis | CPT/HCPCS: 99212; G0463 ==

== ENCOUNTER → 2025-10-12 | Outpatient (CLI) | payer MEDICARE, MEDICAID, SELFPAY | END | disposition home or self-care (01) | PROVIDERS: PCP Internal Medicine; Referring Provider Internal Medicine; Visit Provider Surgery | DX: E11.621 Type 2 diabetes mellitus with foot ulcer (principal); S91.331A Puncture wound without foreign body, right foot, initial encounter; X58.XXXA Exposure to other specified factors, initial encounter; L97.416 Non-pressure chronic ulcer of right heel and midfoot with bone involvement without evidence of necrosis; K70.31 Alcoholic cirrhosis of liver with ascites; I73.9 Peripheral vascular disease, unspecified; E03.9 Hypothyroidism, unspecified; Z79.84 Long term (current) use of oral hypoglycemic drugs; D64.9 Anemia, unspecified; F41.9 Anxiety disorder, unspecified; N18.6 End stage renal disease; I11.9 Hypertensive heart disease without heart failure; G47.30 Sleep apnea, unspecified; Z87.81 Personal history of (healed) traumatic fracture; Z87.891 Personal history of nicotine dependence | CPT/HCPCS: 97597; A9270 ==

== ENCOUNTER → 2025-10-19 | Outpatient (CLI) | payer MEDICARE, MEDICAID, SELFPAY | END | disposition home or self-care (01) | LOC: SWHD 14:06 | PROVIDERS: PCP Internal Medicine; Referring Provider Student in an Organized Health Care Education/Training Program; Visit Provider Student in an Organized Health Care Education/Training Program | DX: E11.621 Type 2 diabetes mellitus with foot ulcer (principal); S91.331A Puncture wound without foreign body, right foot, initial encounter; X58.XXXA Exposure to other specified factors, initial encounter; L97.412 Non-pressure chronic ulcer of right heel and midfoot with fat layer exposed; K70.31 Alcoholic cirrhosis of liver with ascites; I73.9 Peripheral vascular disease, unspecified; E03.9 Hypothyroidism, unspecified; Z79.84 Long term (current) use of oral hypoglycemic drugs; D64.9 Anemia, unspecified; F41.9 Anxiety disorder, unspecified; N18.9 Chronic kidney disease, unspecified; I11.9 Hypertensive heart disease without heart failure; G47.30 Sleep apnea, unspecified; Z87.81 Personal history of (healed) traumatic fracture | CPT/HCPCS: 11042 ==

== ENCOUNTER → 2025-10-20 | Outpatient (CLI) | payer MEDICARE, MEDICAID, SELFPAY | END | disposition home or self-care (01) | LOC: SLDO 13:54 | PROVIDERS: Referring Provider Student in an Organized Health Care Education/Training Program; Visit Provider Student in an Organized Health Care Education/Training Program | DX: E11.621 Type 2 diabetes mellitus with foot ulcer (principal) | CPT/HCPCS: 87070; 87075; 87106; 87205 ==